=== PATIENT | female | born 1960 | race Caucasian/White ===

== ENCOUNTER → 2018-02-14 15:09 | Outpatient (CLI) | payer OTHER, SELFPAY ==
[2018-02-14 18:04] LABS: Absolute Lymphocyte Count 2.13 X10^3/ul (0.83-4.51); Basophil# 0.04 X10^3/uL; Basophil% 0.6 % (0-1); Eosinophil# 0.06 X10^3/uL; Eosinophils% 0.9 % (0-5); Hematocrit 40.8 % (37-47); Hemoglobin 13.2 g/dl (12.0-15.0); Lymphocyte # 2.13 X10^3/ul (4.0); Lymphocyte % 31.8 % (19-41); Mean Corp Hgb Conc 32.4 g/gl (32-36); Mean Corpuscular Hgb 31.6 pg (27.0-32.0); Mean Corpuscular Volume 97.6 fL (81-99); Mean Platelet Vol. 8.6 fl (6.2-12.0); Monocyte# 0.44 X10^3/uL; Monocyte% 6.6 % (0-10); Neutrophil # 4.02 X10^3/uL (2.7-7.7); Platelet Count 327 K/mm3 (150-450); RBC Distribution Width CV 14.4 % (11.6-14.6); RBC Distribution Width SD 50.5 fl (35.1-43.9); Red Blood Count 4.18 M/mm3 (4.2-5.4); White Blood Count 6.7 K/mm3 (4.4-11.0)
[2018-02-14 18:11] LABS: ALB/GLOB Ratio 1.1 RATIO (0.9-2.4); AST(SGOT) 27 U/L (15-37); Alanine Aminotransfer ALT/SGPT 30 U/L (13-56); Albumin, Serum 3.6 g/dL (3.2-5.0); Alkaline Phosphatase 78 U/L (45-117); Anion Gap 6 (5-15); BUN 12 mg/dL (7-18); BUN/Creat Ratio 24.3 RATIO (10-20); Calcium,Total 8.9 mg/dL (8.5-10.1); Chloride 103 mmol/L (98-107); Creatinine, Serum 0.49 mg/dL (0.55-1.02); EST Glomerular Filtration Rate 137 mL/min (>60); Est Glom Filt Rate - Afr Amer 165 mL/min (>60); Globulin 3.3 g/dL (2.2-4.2); Glucose 80 mg/dL (74-106); Potassium 4.3 mmol/L (3.5-5.1); Protein, Total 6.9 g/dL (6.4-8.2); Sodium Level 138 mmol/L (136-145)
[2018-02-14 18:18] LABS: POSITIVE COUNT NO; POSITIVE DIFFERENTIAL NO; POSITIVE MORPHOLOGY NO
== END ==
PROVIDERS: Family Provider Family Medicine; PCP Family Medicine; Visit Provider Internal Medicine Rheumatology
DX: L40.59 Other psoriatic arthropathy (principal); Z79.899 Other long term (current) drug therapy; L40.8 Other psoriasis; M50.30 Other cervical disc degeneration, unspecified cervical region; M47.897 Other spondylosis, lumbosacral region
CPT/HCPCS: 36415; 80053; 85025

== ENCOUNTER → 2018-05-05 11:02 | Outpatient (CLI) | payer OTHER, SELFPAY ==
--- NOTE | 2018-05-05 11:02 | DT_ITS ---
This patient was seen during an EMR downtime May 02, 2018 - May 09, 2018. This patient may have a combination of paper and electronic documentation or all paper documentation. All documentation is viewable within the e-chart portion of [facility] for each patient visit.
[2018-05-10 04:49] LABS: AST(SGOT) 21 U/L (15-37); Alanine Aminotransfer ALT/SGPT 35 U/L (13-56); Albumin, Serum 3.5 g/dL (3.2-5.0); Alkaline Phosphatase 81 U/L (45-117); BUN 13 mg/dL (7-18); Calcium,Total 9.1 mg/dL (8.5-10.1); Chloride 108 mmol/L (98-107); Creatinine, Serum 0.59 mg/dL (0.55-1.02); EST Glomerular Filtration Rate 112 mL/min (>60); Est Glom Filt Rate - Afr Amer 136 mL/min (>60); Globulin 3.5 g/dL (2.2-4.2); Glucose 66 mg/dL (74-106); Sodium Level 144 mmol/L (136-145)
[2018-05-10 04:50] LABS: Anion Gap 7 (5-15)
[2018-05-10 04:58] LABS: Basophil% 0.5 % (0-1); Eosinophils% 0.8 % (0-5); Hematocrit 39.7 % (37-47); Hemoglobin 13.4 g/dl (12.0-15.0); Lymphocyte % 29.6 % (19-41); Mean Corp Hgb Conc 33.8 g/gl (32-36); Mean Corpuscular Hgb 32.4 pg (27.0-32.0); Mean Corpuscular Volume 95.9 fL (81-99); Mean Platelet Vol. 8.5 fl (6.2-12.0); Monocyte% 4.8 % (0-10); Neutrophil % 64.1 % (47-70); POSITIVE COUNT NO; POSITIVE DIFFERENTIAL NO; POSITIVE MORPHOLOGY NO; Platelet Count 360 K/mm3 (150-450); RBC Distribution Width CV 14.1 % (11.6-14.6); RBC Distribution Width SD 48.3 fl (35.1-43.9); Red Blood Count 4.14 M/mm3 (4.2-5.4)
[2018-05-10 04:59] LABS: Absolute Lymphocyte Count 1.78 X10^3/ul (0.83-4.51); Absolute Neutrophil Count 3.9 X10^3/uL (2.0-7.7); Basophil# 0.03 X10^3/uL; Eosinophil# 0.05 X10^3/uL; Lymphocyte # 1.78 X10^3/ul (4.0); Monocyte# 0.29 X10^3/uL; Neutrophil # 3.85 X10^3/uL (2.7-7.7)
== END ==
PROVIDERS: Family Provider Family Medicine; PCP Family Medicine; Visit Provider Internal Medicine Rheumatology
DX: L40.59 Other psoriatic arthropathy (principal); Z79.899 Other long term (current) drug therapy; L40.8 Other psoriasis; M47.897 Other spondylosis, lumbosacral region; M50.30 Other cervical disc degeneration, unspecified cervical region
CPT/HCPCS: 36415; 80053; 85025

== ENCOUNTER 2018-07-30 11:07 | Emergency (ER) | payer OTHER, SELFPAY ==
[2018-07-30 11:08] VITALS: BP 123/83; PULSE 84; RESP 18; TEMP 36.6; O2SAT 98; BMI 16.6
[2018-07-30 11:34] VITALS: BP 123/88; PULSE 74; RESP 14; O2SAT 100
[2018-07-30] MEDS: HYDROcodone Bitartrate/Apap 5/325 Tablet PO (11:39)
[2018-07-30 15:38] VITALS: BP 129/77; PULSE 72; RESP 14; O2SAT 98
[2018-07-30] MEDS: Ondansetron 4 MG/2 ML Vial IV (15:40)
[2018-07-30] MEDS: Morphine 4 MG/ML Syringe IV ×2 (15:45→18:34)
[2018-07-30 16:00] LABS: Absolute Lymphocyte Count 2.02 X10^3/ul (0.83-4.51); Absolute Neutrophil Count 3.8 X10^3/uL (2.0-7.7); Basophil% 1.5 % (0-1); Eosinophil# 0.04 X10^3/uL; Eosinophils% 0.6 % (0-5); Hematocrit 39.1 % (37-47); Hemoglobin 13.1 g/dl (12.0-15.0); Lymphocyte # 2.02 X10^3/ul (4.0); Lymphocyte % 29.4 % (19-41); Mean Corp Hgb Conc 33.5 g/gl (32-36); Mean Corpuscular Hgb 32.2 pg (27.0-32.0); Mean Corpuscular Volume 96.1 fL (81-99); Mean Platelet Vol. 8.2 fl (6.2-12.0); Monocyte# 0.83 X10^3/uL; Monocyte% 12.1 % (0-10); Neutrophil # 3.84 X10^3/uL (2.7-7.7); Platelet Count 323 K/mm3 (150-450); RBC Distribution Width CV 13.9 % (11.6-14.6); RBC Distribution Width SD 45.9 fl (35.1-43.9); Red Blood Count 4.07 M/mm3 (4.2-5.4); White Blood Count 6.9 K/mm3 (4.4-11.0)
[2018-07-30 16:02] LABS: Differential Indicated SCAN CRITERIA MET; POSITIVE COUNT NO; POSITIVE DIFFERENTIAL NO; POSITIVE MORPHOLOGY YES
[2018-07-30 16:13] LABS: Anion Gap 11 (5-15); BUN 12 mg/dL (7-18); BUN/Creat Ratio 25.5 RATIO (10-20); Calcium,Total 9.3 mg/dL (8.5-10.1); Chloride 105 mmol/L (98-107); Creatinine, Serum 0.47 mg/dL (0.55-1.02); EST Glomerular Filtration Rate 145 mL/min (>60); Est Glom Filt Rate - Afr Amer 175 mL/min (>60); Estimated Creatinine Clearance 79.41 ml/min; Glucose 67 mg/dL (74-106); Potassium 3.8 mmol/L (3.5-5.1); Sodium Level 143 mmol/L (136-145)
[2018-07-30 17:08] LABS: Atypical Lymphocyte RARE %; Differential Comment SCANNED; Platelet Estimate ADEQUATE (ADEQ); Reactive Lymphocyte RARE
--- NOTE | 2018-07-30 17:16 | ED.VISSUMM ---
- ER Visit Summary Date of Service: 07/30/18 Chief Complaint: [Neck pain History of Present Illness: The patient is a 58 F [presents the emergency department complaint of neck pain that started about a week ago. Patient denies any trauma to her neck. Patient states initially she had some discomfort in her low back a couple of weeks ago and was seen by primary care physician and had x-rays of her back that just showed some arthritic changes. Patient states that she is having a hard time turning her head to the right because of pain she denies any pain radiating into the arms. She denies numbness or tingling or weakness the extremities. Patient denies any trauma to her neck. Patient does have a history of psoriatic arthritis and is on methotrexate and Otezla.] Physical Examination: [HEENT-PERRLA, EOMI. Cranial nerves II through XII grossly intact. TMs clear. Mucous membranes moist. No adenopathy. Patient has diffuse C-spine tenderness on palpation and has limited rotation to the right and extension of her cervical spine secondary to pain. Cardiovascular-regular rate and rhythm without murmur or ectopy Lungs-clear to auscultation, chest wall stable without crepitus or subcu emphysema Abdomen-normoactive bowel sounds, soft, nontender, no rebound or rigidity, no peritoneal signs. Extremities-intact ?4, normal range of motion, normal pulses, atraumatic] Test Results: [X-rays of the cervical spine obtained showed a fracture of C3. Patient was ordered a CT of the cervical spine to evaluate further and it was noted that she had pathologic fracture at C3 and lytic type lesion noted at T2. CBC with differential obtained was normal. Chemistries were unremarkable. MRI of the cervical spine and chest x-ray ordered and pending.] Emergency Department Course and Treatment: [Patient was medicated initially with one [place] followed by 4 mg of morphine 4 mg of Zofran.] Treatment Plan: [Care of patient turned over to evening physician awaiting MRI results and final disposition] Disposition: [] Impression: [C3 pathologic fracture-etiology uncertain] This note was generated with [employer] software. It may contain incorrect words, spelling, and punctuation that were not noted in review of the chart prior to signing ED Disposition - Plan for ED Patient: Chief Complaint: Other, Pain/Inj Referrals: Umberto Levine III, MD [Primary Care Provider] -
--- NOTE | 2018-07-30 18:09 | NURSING ---
CALLED PRAVEEN NEELY FOR TRANSFER
[2018-07-30 19:22] VITALS: BP 110/74; PULSE 66; RESP 17; O2SAT 94
[2018-07-30 19:56] VITALS: BP 113/74
== END 2018-07-30 19:57 | disposition home or self-care (01) ==
PROVIDERS: Emergency Medicine; Emergency Provider Emergency Medicine; Family Provider Family Medicine; PCP Family Medicine
DX: M84.48XA Pathological fracture, other site, initial encounter for fracture (principal); Z72.0 Tobacco use; L40.50 Arthropathic psoriasis, unspecified
CPT/HCPCS: 71046; 72040; 72125; 72156; 80048; 85025; 96374; 96375; 96376; 99284; A9585; A4216; J2405

== ENCOUNTER → 2018-08-04 15:47 | Outpatient (CLI) | payer OTHER, SELFPAY ==
[2018-08-04 18:06] LABS: ALB/GLOB Ratio 1.1 RATIO (0.9-2.4); AST(SGOT) 24 U/L (15-37); Alanine Aminotransfer ALT/SGPT 50 U/L (13-56); Albumin, Serum 3.6 g/dL (3.2-5.0); Alkaline Phosphatase 77 U/L (45-117); Anion Gap 9 (5-15); BUN 21 mg/dL (7-18); Calcium,Total 9.6 mg/dL (8.5-10.1); Chloride 104 mmol/L (98-107); Creatinine, Serum 0.62 mg/dL (0.55-1.02); EST Glomerular Filtration Rate 106 mL/min (>60); Est Glom Filt Rate - Afr Amer 128 mL/min (>60); Globulin 3.4 g/dL (2.2-4.2); Glucose 118 mg/dL (74-106); Potassium 3.6 mmol/L (3.5-5.1); Sodium Level 142 mmol/L (136-145)
[2018-08-04 18:42] LABS: Absolute Lymphocyte Count 1.23 X10^3/ul (0.83-4.51); Hematocrit 38.3 % (37-47); Hemoglobin 12.8 g/dl (12.0-15.0); Lymphocyte # 1.23 X10^3/ul (4.0); Lymphocyte % 10.4 % (19-41); Mean Corp Hgb Conc 33.4 g/gl (32-36); Mean Corpuscular Hgb 31.6 pg (27.0-32.0); Mean Corpuscular Volume 94.6 fL (81-99); Mean Platelet Vol. 8.6 fl (6.2-12.0); Monocyte# 0.55 X10^3/uL; Monocyte% 4.7 % (0-10); Neutrophil # 9.97 X10^3/uL (2.7-7.7); Neutrophil % 84.5 % (47-70); Platelet Count 368 K/mm3 (150-450); RBC Distribution Width CV 13.9 % (11.6-14.6); RBC Distribution Width SD 47.1 fl (35.1-43.9); Red Blood Count 4.05 M/mm3 (4.2-5.4); White Blood Count 11.8 K/mm3 (4.4-11.0)
[2018-08-04 18:43] LABS: Differential Indicated SCAN CRITERIA MET; POSITIVE COUNT NO; POSITIVE DIFFERENTIAL NO; POSITIVE MORPHOLOGY YES
[2018-08-04 19:35] LABS: Platelet Estimate ADEQUATE (ADEQ)
[2018-08-04 19:36] LABS: Anisocytosis RARE; Macrocytosis RARE
== END ==
PROVIDERS: Family Provider Family Medicine; PCP Family Medicine; Visit Provider Internal Medicine Rheumatology
DX: L40.59 Other psoriatic arthropathy (principal); Z79.899 Other long term (current) drug therapy; L40.8 Other psoriasis; M50.30 Other cervical disc degeneration, unspecified cervical region; M47.897 Other spondylosis, lumbosacral region
CPT/HCPCS: 36415; 80053; 85025

== ENCOUNTER 2018-10-14 12:38 | Day surgery (SDC) | payer OTHER, SELFPAY ==
[2018-10-14 13:01] VITALS: BP 95/70; PULSE 93; RESP 18; TEMP 37.2; O2SAT 99; BMI 17.2
--- NOTE | 2018-10-14 15:20 | PCM.IMDPSTOP ---
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
--- NOTE | 2018-10-14 15:22 | PCM.OPRPT ---
Report of Operation Date of Procedure: 10/14/18 Pre-Operative Diagnosis: lymphoma, need for portacath for chemotherapy IV access Post-Operative Diagnosis: same Surgery/Procedure Performed:: placement of permanent indwelling tunnelled catheter in the left internal jugular vein with subcutaneous port Description of Surgical Findings:: could not access left subclavian vein, normal left internal jugular venous anatomy to SVC chief talent officer: NOT,DEFINED Type of Anesthesia:: Local MAC Anesthesiologist: Dwight Johnson Specimen's removed: none Estimated Blood Loss (mL): < 10 ml Fluids Replaced: 900 ml RL Description of Procedure: After informed consent was given, the patient was brought to the operating room and placed in the supine position. She was then given IV conscious sedation for anesthesia. The patient?s upper chest and neck were then prepped with a surgical skin preparation and sterile surgical drapes were placed. After proper landmarks were ascertained, the skin at the upper left chest area was then infiltrated with local anesthetic. A needle trocar was then attempted to be inserted in the left subclavian vein. However, after several attempts the left subclavian vein could not be accessed. Thus the left internal jugular approach was attempted next. The skin and subcutaneous tissues at this site were infiltrated with local anesthetic. A 'finder needle' was used to localize the left internal jugular vein. A needle trocar was then inserted into the left internal jugular vein and there was good aspiration of venous blood. A wire was then threaded into the needle trocar and this was visualized under fluoroscopy to ensure that the wire was entering properly through the course of the left internal jugular vein. Once this was done, then the needle trocar was removed. A small skin margarita was made with an 11 blade knife at the wire entrance site. The dilator with the introducer sheath attached was then placed over the wire into the left subclavian vein via the Seldinger technique and this was visualized under fluoroscopy. The dilator and sheath were in proper position as visualized by fluoroscopy. The wire and dilator were then removed. The catheter was then threaded into the introducer sheath and was positioned with its tip at the junction of the superior vena cava and the right atrium as visualized under fluoroscopy. A subcutaneous pocket was then created just inferior to the left clavicle in the following fashion. A transverse skin incision was made after the skin and subcutaneous tissues were infiltrated with local anesthetic. Blunt dissection was then used to create a space large enough for placement of the subcutaneous port. Hemostasis was carefully controlled with electrocautery. The port was placed beneath the fascia as the patient had little sub-dermal fat. It was sutured to the fascia using vicryl suture at three sites. The catheter was then tunneled into the subcutaneous pocket. The excess catheter was transected. The catheter was then attached to the subcutaneous port using self pay specialist?s guidelines. The port was then placed in the subcutaneous pocket and the sutures were ligated. The subdermal incisional sites were reapproximated with interrupted vicryl suture. The skin was reapproximated with monocryl suture in a subcuticular fashion. Cavilon and steristrips were used for reinforcement of the skin closure and a sterile opsite dressing was applied. The patient tolerated the procedure well and brought to the Recovery Room in stable condition. Grafts/Implants Used: [employer] PowerPort Lot [id number], exp 2020-02-27 - Complications none noted - Admit VTE Documentation VTE Present on Admission: Yes VTE Mechan Device Prophylaxis: SCD's
[2018-10-14 15:28] VITALS: BP 103/66; BP 95/70; PULSE 94; RESP 16; TEMP 36.9; O2SAT 93
--- NOTE | 2018-10-14 15:29 | RAD_ITS ---
STUDY: X-RAY CHEST REASON FOR EXAM: Female, 58 years old. Port placement TECHNIQUE: Single AP portable view of the chest. COMPARISON: 07/30/2018 FINDINGS: A left IJ port has been placed, tip is in the distal SVC. No pneumothorax or mediastinal shift. There are interstitial fibrotic changes of the lungs. There is no demonstrated pleural abnormality. Normal size heart. Normal mediastinum and boom. Normal visualized pulmonary arteries. There is atherosclerotic calcification of the aortic arch with tortuosity. There are diffuse degenerative changes of the visualized thoracic spine. Normal visualized ribs, clavicles, and shoulders. There is no demonstrated abnormality of the visualized soft tissue structures of the upper abdomen. RAD/CXR for Line Placement IMPRESSION: Chronic interstitial changes, no superimposed acute pulmonary process. Left IJ central venous catheter is in place, tip is in the distal SVC. No pneumothorax or mediastinal shift. Electronically Signed: Carlos Burns MD at 16:06 EST , Service support ,
[2018-10-14 15:30] VITALS: BP 95/70; BP 98/60; PULSE 94; RESP 16; O2SAT 94
--- NOTE | 2018-10-14 15:33 | DCINST_ITS ---
Discharge Diet: No Restrictions Discharge Activity: Return to Normal Activity, May not drive while taking narcotic pain medications. Lifting Restrictions: no lifting greater than 10 pounds with left arm for 1 week Call your doctor if your incision/area has: Continuous Slow Oozing, Sudden Increased Bleeding, Foul Smelling Discharge Call your doctor if you observe: Fever of 101 or Higher Additional Dressing/Incision Instructions:: Leave dressings in place. May get wet in the shower - do not scrub - rinse well and pat dry. Do not soak - no tub baths/swimming Allergies/Adverse Reactions: Allergies No Known Allergies Allergy (Verified 10/11/18 13:03) Medications to take at Discharge Simvastatin [Zocor] 40 mg PO DAILY 07/30/18 Benzonatate [Tessalon Perle] 100 mg PO Q4H PRN PRN 10/11/18 Calcium Carbonate/Vitamin D3 [Caltrate 600 Plus D3 Tablet] 1 each PO BID 10/11/18 Cephalexin [Keflex] 500 mg PO TID 10/11/18 Dexamethasone [Decadron] 1 mg PO DAILY@0800 10/11/18 Multivitamin [Multiple Vitamins] 1 each PO DAILY 10/11/18 Naproxen Sodium [Aleve] 220 mg PO Q12H PRN PRN 10/11/18 Ondansetron [Zofran] 8 mg PO Q8H PRN PRN 10/11/18 Prednisone [Deltasone] 40 mg PO DAILY PRN 10/11/18 Primary Care Physician: Umberto Levine III, MD [Primary Care Provider] - Test Results: Test results from this visit will be discussed in further detail at your follow- up appointment, if applicable. Please Follow Up With: Irma Ochoa MD - call When: in 10-14 days, please call for date and time, thank you
[2018-10-14 15:50] VITALS: BP 102/54; BP 95/70; PULSE 86; RESP 16; O2SAT 92
[2018-10-14 15:52] VITALS: BP 101/58; BP 95/70; PULSE 88; RESP 16; TEMP 37.1; O2SAT 93
[2018-10-14 16:15] VITALS: BP 95/70
== END 2018-10-14 16:28 | disposition home or self-care (01) ==
LOC: SDC 12:38 → AC 12:40
PROVIDERS: Family Provider Family Medicine; PCP Family Medicine; Referring Provider Surgery; Visit Provider Surgery
PROC: (CPT 36561; principal; 2018-10-14 14:00)
DX: Z45.2 Encounter for adjustment and management of vascular access device (principal); C83.30 Diffuse large B-cell lymphoma, unspecified site; E78.5 Hyperlipidemia, unspecified; Z87.891 Personal history of nicotine dependence
CPT/HCPCS: 00532; 36561; 71045; 77001; J7050; J7120; C1788; J2405; J3490

== ENCOUNTER 2019-06-04 17:09 | Emergency (ER) | payer OTHER, SELFPAY ==
[2019-06-04 17:10] VITALS: BP 115/75; PULSE 88; RESP 16; TEMP 36.9; O2SAT 100; BMI 17.4
--- NOTE | 2019-06-04 17:58 | RAD_ITS ---
STUDY: X-RAY - RIGHT FOOT CLINICAL: Female, 59 years old. Dropped something on foot. TECHNIQUE: 3 view(s) of the foot. COMPARISON: None. FINDINGS: The bones are diffusely demineralized. Normal talus, calcaneus, and tarsal bones. There are degenerative changes of the mid and hindfoot. There is a comminuted fracture within the diaphysis of the fifth metatarsal. There is mild lateral displacement of the distal metatarsal. There is degenerative arthrosis of the metatarsophalangeal joint of the hallux with a hallux valgus deformity. Normal interphalangeal joint of the great toe. Normal phalanges of the great toe. Normal second through fifth metatarsophalangeal joints. Normal interphalangeal joints and phalanges of the lesser toes. The soft tissue structures are unremarkable. RAD/Foot min 3 Views IMPRESSION: Fifth metatarsal fracture. Degenerative changes. Electronically Signed: Carolyne Estrada MD at 18:45 EDT Tel , Service support ,
--- NOTE | 2019-06-04 17:59 | ED.VIS.LOWEX ---
History of Present Illness Chief Complaint: Lower Extremity Injury Detail of Chief Complaint: Right foot injury Informant: Patient Occurred: Today Mechanism/Context: - - Large drill bit fell on foot Onset: Today Timing: Continuous Quality of Pain: Aching Current Severity: Mild Maximum Severity: Mild Narrative: Patient states she was cleaning out her garage when a large drill bit used to dig wells fell off of a table and landed on her right foot. She was wearing flip-flops at the time. He has an antalgic gait. - Past Medical History (1) B-cell lymphoma Status: Acute (2) Psoriasis Status: Acute Past Medical History - Allergies and Home Meds Allergies/Adverse Reactions: Allergies No Known Allergies Allergy (Verified 06/04/19 17:10) Primary Care Physician: Victorino Mednez MD [STAFF PHYSICIAN] - 5-7 Days Prior records reviewed: Yes Past Medical History: - - Reviewed Lives: Spouse/ Significant Other Smoking Status: Current every day smoker Review of Systems General: Denies: Chills, Fever Cardiovascular: Denies: Chest pain, Palpitations, Heart racing Respiratory: Denies: Dyspnea, Cough Gastrointestinal: Denies: Abdominal pain Musculoskeletal: Reports: Arthralgias Physical Exam Vital Signs/Narrative: Vital Signs Temp Pulse Resp BP Pulse Ox 06/04/19 17:10 98.5 F 88 16 115/75 100 - Extremity Exam Right Foot: - - Patient has a contusion with ecchymosis over the midportion of the right foot. There is a superficial abrasion. She has good cap refill distally. No tenderness of the calcaneus or ankle. General: Well nourished ENT: No Trauma Neck: Nontender Cardiovascular: Regular rate, Regular rhythm Respiratory: No distress, CTA bilaterally Abdomen: Soft, Nontender Skin: - - As above Neurological: Alert, Oriented x3 Diagnostic/Tx/Re-eval Clinical Impression(s) from Imaging Studies Foot X-Ray 06/04/19 17:58 IMPRESSION: Fifth metatarsal fracture. Degenerative changes. Electronically Signed: Carolyne Estrada MD at 18:45 EDT Tel , Service support , - Medical Decision Making Test results discussed with patient and at bedside. At this time fracture is nondisplaced. She is placed in a posterior splint and given crutches. She is to remain nonweightbearing until she is seen by her orthopedist, Dr. Mendez. She will call him tomorrow. She does have oxycodone at home that she can use for pain if needed. ED Disposition - Plan for ED Patient: Disposition: Home or Assisted Living Diagnosis: Foot fracture, right Instructions: CRUSH INJURY, Foot/Toe, FRACTURE, Foot Referrals: Victorino Mendez MD [STAFF PHYSICIAN] - 5-7 Days
[2019-06-04 21:02] VITALS: BP 137/87; PULSE 89; RESP 18; O2SAT 96
== END 2019-06-04 21:02 | disposition home or self-care (01) ==
PROVIDERS: Emergency Provider Emergency Medicine; Family Provider Family Medicine; PCP Family Medicine
DX: S92.354A Nondisplaced fracture of fifth metatarsal bone, right foot, initial encounter for closed fracture (principal); W20.8XXA Other cause of strike by thrown, projected or falling object, initial encounter; Y93.9 Activity, unspecified; Y92.008 Other place in unspecified non-institutional (private) residence as the place of occurrence of the external cause; Y99.9 Unspecified external cause status; L40.9 Psoriasis, unspecified; C85.10 Unspecified B-cell lymphoma, unspecified site
CPT/HCPCS: 73630; 99283

== ENCOUNTER 2022-12-27 10:26 | Emergency (ER) | payer BC, SELFPAY ==
[2022-12-27 10:27] VITALS: BP 123/89; PULSE 73; RESP 14; TEMP 36.6; O2SAT 98; BMI 15.6
--- NOTE | 2022-12-27 10:58 | EDS_ITS ---
HPI HPI - URI History of Present Illness Chief Complaint: Ear Problem Detail of Chief Complaint: Muffled and decreased hearing left ear. Informant: patient Onset/Context/Timing Onset: Days Context: Gradual Onset Timing: Continuous Current Severity: Mild Maximum Severity: Mild Associated Symptoms Associated Symptoms: Negative for Headache, Sinus Pressure, Myalgias, Nausea, Vomiting, Diarrhea, Shortness of Breath, Chest Pain, Nonproductive cough or Productive Cough Narrative Narrative: 62-year-old female complaining of not hearing well out of her left ear. This has been going on last several days. On Wednesday she slipped and fell in her garage hit her left forehead. No LOC. She is on no blood thinners. Does not have any significant headache. Was seen in urgent care and sent to the emergency department. She denies any ear pain or fever. Prior similar symptoms: No Recent Illness/Hospitalization: No ROS ROS ED ROS Narrative Difficulty hearing out of her left ear. Review of Systems ROS Unobtainable: Denies due to encephalopathy Constitutional Constitutional ED: Denies chills, fever(s), subjective, sweats or weight loss Eyes Eyes: Denies blurry vision, change in vision or diplopia ENT ENT ED: Denies ear pain, rhinorrhea or sore throat Cardiovascular Cardiovascular: Denies chest pain or palpitations Respiratory/Chest Respiratory/Chest: Denies cough or dyspnea Gastrointestinal Gastrointestinal: Denies abdominal pain Genitourinary Genitourinary ED: Denies dysuria Musculoskeletal Musculoskeletal: Denies arthralgias or back pain Integumentary Denies abscess or Abrasions Neurologic Neurologic: Denies headache(s) Psychiatric Psychiatric: Denies anxiety or depression Endocrine Endocrinology: Denies cold intolerance Hematologic/Lymphatic Hematologic/Lymphatic: Denies easy bleeding or easy bruising Allergic/Immunologic Allergic/Immunologic ED: Denies mouth swelling or tongue swelling [facility] Medical History (Updated 12/27/22 @ 11:19 by Samaria Vee) Depression GERD (gastroesophageal reflux disease) Hyperlipemia Lymphoma Home Medications simvastatin 40 mg tablet 40 mg PO DAILY 07/30/18 [History Last Taken Unknown] calcium carbonate 600 mg-vitamin D3 20 mcg (800 unit) tablet (Caltrate with Vitamin D3) 1 ea PO BID 10/11/18 [History Last Taken Unknown] naproxen 500 mg tablet,delayed release 500 mg PO BID PRN Pain 12/27/22 [History Last Taken Unknown] omeprazole 20 mg capsule,delayed release 20 mg PO DAILY 12/27/22 [History Last Taken Unknown] sertraline 25 mg tablet 25 mg PO DAILY 12/27/22 [History Last Taken Unknown] Allergy/AdvReac Type Severity Reaction Status Date / Time No Known Allergies Allergy Verified 12/27/22 10:27 Social History Smoking Status: Current every day smoker tobacco type: cigarettes EXAM Physical Exam Narrative Exam Narrative: Well appearing 62-year-old female. Vital signs stable afebrile. H EENT exam she has small contusion on her left forehead. Pupils round reactive light his motions are intact. Posterior pharynx normal. Scalp nontender no hematoma. Right canal and TM are normal. Left canal is completely obstructed by wax. I cannot see the TM at this time. Neck nontender. No lymphadenopathy. Lungs are clear. Heart regular rhythm. Chest wall nontender. Abdomen soft nontender. Moving all 4 extremities. Neurovascular intact. Normal team coordinator strength. Normal range of motion. Normal dorsi and plantar flexion. Back nontender. Neurologic exam awake alert no focal motor deficits. Const Vital Signs: 12/27/22 10:27 Temperature 98 F Temperature Source Temporal Pulse Rate 73 Respiratory Rate 14 Blood Pressure 123/89 H Blood Pressure Mean 100 Pulse Ox 98 Oxygen Delivery Method Room Air Positive well nourished and well developed; Negative for obese, cachectic or contractures General Appearance ED: well developed and NAD; Negative for cachectic, contractures, cyanotic, diaphoretic or pallor Nutritional Appearance: Negative for cachectic or obese HEENT Reports moist mucous membranes; Denies dry mucous membranes HEENT Narrative: Bruise left forehead. No significant hematoma. normocephalic; Negative for atraumatic Mouth ED: No dry mucous membranes Mouth: No dry mucous membranes Throat: posterior oropharynx normal; Negative for tonsils abnormal or posterior oropharynx abnormal Eyes PERRL and EOMs intact bilaterally Eyes Narrative: Left TM obscured by wax in the canal. General Eye ED: Negative for pale conjunctiva or scleral icterus Neck no lymphadenopathy, supple, no meningeal signs and no JVD General: Negative for anterior neck swelling or lymphadenopathy Resp normal respiratory effort and clear to auscultation bilaterally Effort and Inspection: Negative for retractions Auscultation: Negative for rales, rhonchi or wheezes Cardio S1 normal heart sound, S2 normal heart sound and no murmurs Rate: regular rate; Negative for bradycardia or tachycardic Rhythm: regular rhythm; Negative for abnormal rhythm GI non-tender, non-distended and no masses Inspection: Negative for abdominal distention Auscultation: normoactive bowel sounds Palpation: soft; Negative for tender or guarding Back/Spine no CVA tenderness and normal ROM General Back: Negative for CVA tenderness Cervical Spine: Negative for cervical spine tenderness Thoracic Spine / Upper Back: Negative for thoracic spinal tenderness Lumbar Spine / Lower Back: Negative for lumbar spinal tenderness Sacrum: Negative for tenderness Extremity normal to inspection and full ROM General Extremety ED: Negative for cyanosis, tenderness or other findings General Extremity: Negative for cyanosis or other findings Neuro oriented x3, CN's II-XII intact bilaterally and no sensory deficits noted Sensorium / Orientation: alert, oriented to person, oriented to place and oriented to time; Negative for orientation impaired, lethargic, stuporous or other Motor Exam: strength 5/5 throughout Psych mental status grossly normal Appearance: Negative for other Attitude: No agitated Mood & Affect: Negative for depressed, anxious or tearful Skin General Skin Exam: Negative for jaundice or pallor Lesions: no lesions Rashes: no rashes Trauma: Negative for abrasion or laceration MDM MDM MDM Narrative Medical decision making narrative: 62-year-old female fall has a minor closed head injury. She is actually here because of decreased hearing in her left ear caused by cerumen impaction on the left. We will place Debrox in the left ear canal. Irrigate out as much wax as we can. Nurses used Debrox eardrops irrigated the patient's left ear and got about half the wax out. You can now visualize the left TM is unremarkable. Patient's hearing has improved. She is doing well at 11:55 AM. She will be discharged home. Discharge Plan Triage Chief Complaint: Ear Problem ED Provider: Xavier Garcia Dx/Rx/DC Orders Clinical Impression: Fall, Closed head injury, Impacted cerumen of left ear Instructions: Impacted Earwax, ED Head Injury (Adult) Prescriptions: No Action simvastatin 40 MG tablet 40 mg PO DAILY Label Comments: Take 1 tablet by mouth daily at bedtime. calcium carbonate-vitamin D3 [Caltrate with Vitamin D3] 1 EACH tablet 1 ea PO BID naproxen 500 mg tablet,delayed release (DR/EC) 500 mg PO BID PRN (Reason: Pain) Label Comments: take 1 tablet by mouth twice a day with meals for pain sertraline 25 mg tablet 25 mg PO DAILY omeprazole 20 mg capsule,delayed release(DR/EC) 20 mg PO DAILY Primary Care Provider: Richard Hernandez Activity Restrictions/Additional Instructions: You can use either Cerumenex or Debrox eardrops either 1 you can get [id number] for earwax as needed. The forehead bruise should progressively get better. Tylenol for any pain. Disposition Disposition: Home, Self Care
[2022-12-27] MEDS: Carbamide Peroxide 15 ML Bottle 5 DRP OTIC (11:12)
== END 2022-12-27 12:02 | disposition home or self-care (01) ==
PROVIDERS: Emergency Provider Emergency Medicine; PCP Physician Assistant; Visit Provider Emergency Medicine
DX: S09.90XA Unspecified injury of head, initial encounter (principal); H61.22 Impacted cerumen, left ear; F17.210 Nicotine dependence, cigarettes, uncomplicated; E78.5 Hyperlipidemia, unspecified; K21.9 Gastro-esophageal reflux disease without esophagitis; F32.A Depression, unspecified
CPT/HCPCS: 69209; 99283

== ENCOUNTER 2023-06-04 10:38 | Emergency (ER) | payer BC, SELFPAY ==
[2023-06-04 10:39] VITALS: BP 113/81; PULSE 86; RESP 14; TEMP 37; O2SAT 98; BMI 15.3
--- NOTE | 2023-06-04 11:38 | EDS_ITS ---
HPI <DION Perez - Last Filed: 06/04/23 13:42> History of Present Illness Chief Complaint: Abn Labs Narrative Narrative: 63-year-old female started chemo last week for lung cancer with Dr. Robb. At last week's session they had to give her IV magnesium and potassium. She had blood work again today before chemo and her potassium was 2.7. The nurse there said that the common side effect of this chemotherapy agent. She has not had any vomiting, diarrhea, or side effects from the chemo. She was sent here for electrolyte replacement. PFS <DION Perez - Last Filed: 06/04/23 13:42> [facility] Medical History (Updated 06/12/23 @ 00:05 by Kendrick Carvajal) Depression GERD (gastroesophageal reflux disease) Hyperlipemia Lymphoma Home Medications simvastatin 40 mg tablet 40 mg PO DAILY 07/30/18 [History Last Taken Unknown] calcium carbonate 600 mg-vitamin D3 20 mcg (800 unit) tablet (Caltrate with Vitamin D3) 1 ea PO BID 10/11/18 [History Last Taken Unknown] naproxen 500 mg tablet,delayed release 500 mg PO BID PRN Pain 12/27/22 [History Last Taken Unknown] omeprazole 20 mg capsule,delayed release 20 mg PO DAILY 12/27/22 [History Last Taken Unknown] sertraline 25 mg tablet 25 mg PO DAILY 12/27/22 [History Last Taken Unknown] potassium chloride 20 mEq tablet,extended release 20 meq PO DAILY 7 days #7 tabs 06/04/23 [Rx Last Taken Unknown] Allergy/AdvReac Type Severity Reaction Status Date / Time No Known Allergies Allergy Verified 06/04/23 10:39 Social History Smoking Status: Current every day smoker tobacco type: cigarettes ROS <DION Perez - Last Filed: 06/04/23 13:42> ROS ED ROS Narrative Constitutional: Negative for fever, chills, malaise. CVS: Negative for chest pain. Respiratory: Negative for shortness of breath. GI: Negative for abdominal pain, nausea, vomiting, diarrhea. EXAM <DION Perez - Last Filed: 06/04/23 13:42> Physical Exam Narrative Exam Narrative: CONST: Patient sitting in no acute distress. EYES: Normal inspection. NECK: Normal inspection. RESP: No respiratory distress, CTAB. CVS: Regular rate and rhythm, no murmur, no gallop. SKIN: Color normal, no rash, warm, dry, intact. EXTREMITIES: Normal appearance, no pedal edema. NEURO: Oriented x4. PSYCH: Normal affect. Const Vital Signs: 06/04/23 10:39 06/04/23 10:55 Temperature 98.6 F Temperature Source Temporal Pulse Rate 86 Respiratory Rate 14 Respiratory Effort Normal Respiratory Pattern Normal Blood Pressure 113/81 H Blood Pressure Mean 91 Pulse Ox 98 Oxygen Delivery Method Room Air <Dr. Grazyna Aaron DO - Last Filed: 08/29/23 08:32> Physical Exam Const Vital Signs: 06/04/23 10:39 06/04/23 10:55 Temperature 98.6 F Temperature Source Temporal Pulse Rate 86 Respiratory Rate 14 Respiratory Effort Normal Respiratory Pattern Normal Blood Pressure 113/81 H Blood Pressure Mean 91 Pulse Ox 98 Oxygen Delivery Method Room Air MDM <DION Perez - Last Filed: 06/04/23 13:42> [facility] Narrative Medical decision making narrative: Patient sent here for asymtomatic hypokalemia. Apparently this can be a side effect of her chemotherapy agent. Potassium is 2.8, magnesium WNL at 1.9. She was given a dose of p.o. potassium 40 mEq and prescribed 20 mEq once daily x1 week. I let the on-call oncologist know and they will follow-up for repeat blood work. Patient was discharged in stable condition. Consults: Oncology I have personally performed a face to face assessment of the patient and have reviewed the SHARDA Note. I performed a substantive portion of the visit including all aspects of the following. My fleming findings include: History is [patient presents to the emergency department with complaint of low potassium. Patient apparently was getting chemotherapy today and they teddy some basic labs and noted that her potassium was 2.7. Patient also had low potassium during last time she got chemo a week ago however they gave her p.o. potassium before she got her chemo. Patient states that also her magnesium was low at the time. Chemo is known to lower potassium apparently. Patient was told that she may need to be on a monitor while she did receive potassium so they sent her to the ER. Patient denies any chest pain or palpitations or paresthesias. Patient essentially has no complaints otherwise.] Exam is [HEENT-normocephalic atraumatic, negative for [place] sign Cardiovascular-heart is regular rate and rhythm without murmur Lung exam-clear to auscultation without tachypnea Abdomen-normal bowel sounds and nontender without rebound or rigidity or. No signs. Extremities-intact x4 without carpopedal spasm ] Medical Decision Making [patient will be given a dose of potassium. We will check her potassium and her magnesium.] Patient was given p.o. potassium. Clinically she looks well. She will be started on daily p.o. potassium and advised to follow-up with her primary care physician within the next week to have a repeat potassium. Other additions or changes: [None] Lab Data Labs: Laboratory Results - last 24 hr 06/04/23 12:25 Sodium 138 Potassium 2.8 L Chloride 102 Carbon Dioxide 33.0 H Anion Gap 3 L BUN 7 Creatinine 0.40 L Estim Creat Clear Calc 78.40 Est GFR (MDRD) Af Amer 207 Est GFR (MDRD) Non-Af 171 BUN/Creatinine Ratio 17.5 Glucose 94 Calcium 8.5 Magnesium 1.9 <Dr. Grazyna Aaron, DO - Last Filed: 08/29/23 08:32> [facility] MDM Narrative Medical decision making narrative: I have personally performed a face to face assessment of the patient and have reviewed the SHARDA Note. I performed a substantive portion of the visit including all aspects of the following. My fleming findings include: History is [patient presents to the emergency department with complaint of low potassium. Patient apparently was getting chemotherapy today and they teddy some basic labs and noted that her potassium was 2.7. Patient also had low potassium during last time she got chemo a week ago however they gave her p.o. potassium before she got her chemo. Patient states that also her magnesium was low at the time. Chemo is known to lower potassium apparently. Patient was told that she may need to be on a monitor while she did receive potassium so they sent her to the ER. Patient denies any chest pain or palpitations or paresthesias. Patient essentially has no complaints otherwise.] Exam is [HEENT-normocephalic atraumatic, negative for [place] sign Cardiovascular-heart is regular rate and rhythm without murmur Lung exam-clear to auscultation without tachypnea Abdomen-normal bowel sounds and nontender without rebound or rigidity or. No signs. Extremities-intact x4 without carpopedal spasm ] Medical Decision Making [patient will be given a dose of potassium. We will check her potassium and her magnesium.] Patient was given p.o. potassium. Clinically she looks well. She will be started on daily p.o. potassium and advised to follow-up with her primary care physician within the next week to have a repeat potassium. Other additions or changes: [None] Lab Data Labs: Laboratory Results - last 24 hr 06/04/23 12:25 Sodium 138 Potassium 2.8 L Chloride 102 Carbon Dioxide 33.0 H Anion Gap 3 L BUN 7 Creatinine 0.40 L Estim Creat Clear Calc 78.40 Est GFR (MDRD) Af Amer 207 Est GFR (MDRD) Non-Af 171 BUN/Creatinine Ratio 17.5 Glucose 94 Calcium 8.5 Magnesium 1.9 Discharge Plan Triage Chief Complaint: Abn Labs ED Midlevel Provider: Magali Jamil ED Provider: Grazyna Aaron Dx/Rx/DC Orders Clinical Impression: Acute hypokalemia Instructions: ED Hypokalemia Prescriptions: New potassium chloride 20 mEq tablet extended release 20 meq PO DAILY 7 Days Qty: 7 0RF No Action simvastatin 40 MG tablet 40 mg PO DAILY Patient Comments: Take 1 tablet by mouth daily at bedtime. calcium carbonate-vitamin D3 [Caltrate with Vitamin D3] 1 EACH tablet 1 ea PO BID naproxen 500 mg tablet,delayed release (DR/EC) 500 mg PO BID PRN (Reason: Pain) Patient Comments: take 1 tablet by mouth twice a day with meals for pain sertraline 25 mg tablet 25 mg PO DAILY omeprazole 20 mg capsule,delayed release(DR/EC) 20 mg PO DAILY Primary Care Provider: Richard Hernandez Referrals: Richard Hernandez PA [Primary Care Provider] - Activity Restrictions/Additional Instructions: Follow up with your PCP or oncologist to have labs rechecked Disposition Disposition: Home, Self Care Discharge Date/Time: 06/04/23 13:50
[2023-06-04] MEDS: Potassium Chloride Oral Tablet 20 MEQ 40 MEQ PO (11:45)
--- NOTE | 2023-06-04 11:50 | ED.RN ---
PT ARRIVES WITH IV IN RT WRIST FROM CHEMO THIS MORNING. STATES NURSES LEFT IT IN SO SHE DIDNT HAVE TO BE STUCK AGAIN.
[2023-06-04 12:59] LABS: Anion Gap 3 (5-15); BUN 7 mg/dL (7-18); BUN/Creat Ratio 17.5 RATIO (10-20); Calcium,Total 8.5 mg/dL (8.5-10.1); Chloride 102 mmol/L (98-107); EST Glomerular Filtration Rate 171 mL/min (>60); Est Glom Filt Rate - Afr Amer 207 mL/min (>60); Glucose 94 mg/dL (74-106); Magnesium 1.9 mg/dL (1.6-2.6); Potassium 2.8 mmol/L (3.5-5.1); Sodium Level 138 mmol/L (136-145)
[2023-06-04 13:47] VITALS: BP 107/86; PULSE 88; RESP 16; O2SAT 95
== END 2023-06-04 13:50 | disposition home or self-care (01) ==
PROVIDERS: Physician Assistant; Emergency Provider Emergency Medicine; PCP Physician Assistant; Visit Provider Emergency Medicine
DX: E87.6 Hypokalemia (principal); F17.210 Nicotine dependence, cigarettes, uncomplicated; Z92.21 Personal history of antineoplastic chemotherapy; E78.5 Hyperlipidemia, unspecified; Z85.118 Personal history of other malignant neoplasm of bronchus and lung; Z79.899 Other long term (current) drug therapy; K21.9 Gastro-esophageal reflux disease without esophagitis; F32.A Depression, unspecified
CPT/HCPCS: 80048; 83735; 99283

== ENCOUNTER 2024-05-07 09:24 | Inpatient (IN) | payer BC, SELFPAY ==
[2024-05-07] VITALS (28 sets, daily range): BP systolic 110–173; BP diastolic 88–122; PULSE 109–135; RESP 16–37; TEMP 36–37.2; O2SAT 89–100; BMI 14.3
--- NOTE | 2024-05-07 09:40 | EX.ED.DYSGE1 ---
HPI History of Present Illness Chief Complaint: Unresponsive Informant: spouse/S.O. Onset/Context/Timing Onset: Today Context: Sudden Onset Timing: Continuous Quality: Unresponsive Location: Generalized Narrative Narrative: Patient presents unresponsive that was noticed this morning. Family reported that the patient was acting appropriate yesterday when she went to bed. Family woke up this morning and found the patient unresponsive. Patient is nonverbal. Patient does not take any anticoagulants. does report that the patient had a cough recently but has been unable to produce any sputum. states that he saw the patient in a chair last evening around 2100. Patient states he went to bed at that time. Patient states when he woke up today he found the patient unresponsive. He called EMS at that time. [facility] Medical History Lymphoma Depression GERD (gastroesophageal reflux disease) Hyperlipemia Home Medications ?Medication ?Instructions ?Recorded ?Last Taken ?Type simvastatin 40 mg tablet 40 mg PO DAILY 07/30/18 Unknown History calcium carbonate 600 mg-vitamin 1 ea PO BID 10/11/18 Unknown History D3 20 mcg (800 unit) tablet (Caltrate with Vitamin D3) naproxen 500 mg tablet,delayed 500 mg PO BID PRN Pain 12/27/22 Unknown History release omeprazole 20 mg capsule,delayed 20 mg PO DAILY 12/27/22 Unknown History release duloxetine 30 mg capsule,delayed 30 mg PO DAILY 05/07/24 Unknown History release gabapentin 300 mg capsule 300 mg PO TID 05/07/24 Unknown History magnesium chloride 71.5 mg 143 mg PO DAILY 05/07/24 Unknown History (magnesium chloride) tablet,delayed release (Slow-Mag) methocarbamol 500 mg tablet 750 mg PO Q6H PRN PRN pain 05/07/24 Unknown History nifedipine 30 mg tablet,extended 30 mg PO DAILY 05/07/24 Unknown History release 24 hr thiamine HCl (vitamin B1) 100 mg 100 mg PO DAILY 05/07/24 Unknown History tablet tiotropium bromide 2.5 2 puff inhalation DAILY 05/07/24 Unknown History mcg/actuation mist for inhalation (Spiriva Respimat) vitamin B complex (Vitamins B 1 cap PO DAILY 05/07/24 Unknown History Complex capsule) Allergy/AdvReac Type Severity Reaction Status Date / Time No Known Allergies Allergy Verified 06/04/23 10:39 Social History Smoking Status: Current every day smoker tobacco type: cigarettes ROS ROS ED Review of Systems ROS Unobtainable: due to mental condition and due to mental status EXAM Physical Exam Const Vital Signs: 05/07/24 09:25 05/07/24 09:28 05/07/24 10:02 Temperature 97.8 F 96.8 F L Temperature Source Temporal Temporal Pulse Rate 128 H 127 H 135 H Respiratory Rate 20 H 19 H 27 H Respiratory Effort Respiratory Pattern Blood Pressure 147/122 H 152/112 H Blood Pressure Mean 130 125 Pulse Ox 89 92 100 Oxygen Delivery Method Room Air Room Air Nasal Cannula Oxygen Flow Rate (L/min) 6 05/07/24 10:17 05/07/24 10:38 05/07/24 11:08 Temperature 96.8 F L 97 F L 97.3 F L Temperature Source Temporal Temporal Temporal Pulse Rate 128 H 121 H 118 H Respiratory Rate 37 H 27 H 26 H Respiratory Effort Respiratory Pattern Blood Pressure 153/104 H 141/92 H 133/104 H Blood Pressure Mean 120 108 113 Pulse Ox 100 100 100 Oxygen Delivery Method Nasal Cannula Nasal Cannula Nasal Cannula Oxygen Flow Rate (L/min) 6 6 6 05/07/24 11:38 05/07/24 11:39 05/07/24 12:00 Temperature 97.4 F L Temperature Source Temporal Pulse Rate 115 H 117 H Respiratory Rate 26 H 32 H Respiratory Effort Short of Breath Labored Respiratory Pattern Hyperpnea Blood Pressure 110/91 H 152/109 H Blood Pressure Mean 97 123 Pulse Ox 100 97 Oxygen Delivery Method Nasal Cannula Room Air Oxygen Flow Rate (L/min) 6 05/07/24 12:06 05/07/24 12:11 05/07/24 12:30 Temperature 97.1 F L 97.1 F L 98.9 F Temperature Source Temporal Axillary Pulse Rate 116 H 112 H 113 H Respiratory Rate 24 H 19 H 16 Respiratory Effort Respiratory Pattern Blood Pressure 159/102 H 159/102 H 161/107 H Blood Pressure Mean 121 121 125 Pulse Ox 99 100 98 Oxygen Delivery Method Nasal Cannula Room Air Oxygen Flow Rate (L/min) 6 05/07/24 13:11 05/07/24 13:18 05/07/24 14:00 Temperature 98.4 F 98.4 F 98 F Temperature Source Axillary Axillary Axillary Pulse Rate 113 H 113 H 109 H Respiratory Rate 32 H 32 H 30 H Respiratory Effort Respiratory Pattern Blood Pressure 166/121 H 166/121 H 173/109 H Blood Pressure Mean 136 136 130 Pulse Ox 98 98 98 Oxygen Delivery Method Nasal Cannula Nasal Cannula Nasal Cannula Oxygen Flow Rate (L/min) 6 6 6 05/07/24 14:30 Temperature Temperature Source Pulse Rate 122 H Respiratory Rate 32 H Respiratory Effort Respiratory Pattern Blood Pressure 157/103 H Blood Pressure Mean 121 Pulse Ox 100 Oxygen Delivery Method Nasal Cannula Oxygen Flow Rate (L/min) 6 Positive cachectic General Appearance ED: cachectic Nutritional Appearance: cachectic HEENT Reports moist mucous membranes Eyes PERRL Neck supple and no JVD Resp normal respiratory effort and clear to auscultation bilaterally Cardio regular rhythm Rate: tachycardic GI non-distended Palpation: soft Extremity normal to inspection Neuro Sensorium / Orientation: lethargic Motor Exam: general weakness Sepsis Attestation Sepsis Alert: Yes Sepsis Attestation: Agree w/Sepsis Date exam was performed: 05/07/24 Time exam was performed: 09:45 Possible Source of Sepsis: Pulmonary and Genitourinary Sepsis Organ Dysfunction Criteria Present: Lactic Acid > 2 mmol/L and New/Unexplained change in mental status Fluid Resuscitation Fluid Resuscitation ordered: 30 ml/kg fluid bolus ordered Sepsis Note Date exam was performed: 05/07/24 Time exam was performed: 11:00 Sepsis Attestation: Sepsis re-evaluation was performed MDM MDM MDM Narrative Medical decision making narrative: Differential diagnosis includes intracranial bleeding, stroke, electrolyte abnormality, medication overdose, cardiac dysrhythmia, cardiac ischemia, sepsis. CT scan of the brain will be obtained to assess for intracranial bleeding and stroke. EKG will be obtained to assess for cardiac dysrhythmia and cardiac ischemia. CBC will be obtained to assess for leukocytosis and anemia. Comprehensive metabolic profile will be obtained to assess for hepatic function, renal function, and electrolyte abnormality. PT with INR and PTT will be obtained to assess for coagulopathy. Lactate will be obtained to assess for sepsis. Urinalysis will be obtained to assess for urinary tract infection. Chest x-ray will be obtained to assess for pneumonia. Lab Data Attestation: I reviewed the patient's lab results. Lab results narrative: CBC was reviewed and showed an elevated leukocytosis of 25.5. There were left hip noted. PT with INR and PTT were reviewed. Pro time was 15.3 and INR is 1.2. PTT was slightly elevated at 37.8. Comprehensive metabolic profile was reviewed. Sodium was 131 and potassium was slightly low at 2.8. Chloride was slightly low at 94. Anion gap was elevated at 16. BUN was elevated at 34. Creatinine was normal at 0.99. Total bilirubin was normal at 1.0. AST was slightly elevated at 119 ALT was normal at 35. Alkaline phosphatase was slightly elevated at 139. Initial high-sensitivity troponin was slightly elevated at 88. This is most likely from stress. Serum lactate was reviewed and was elevated at 5.2. Urinalysis was normal. There is no evidence of urinary tract infection. Occult blood was 250 with 10-25 red blood cells noted. Arterial blood gas was remarkable and showed a pH of 7.50, pCO2 of 25.8, pO2 of 100, bicarb of 19.9, and oxygen saturation of 98% on 6 L nasal cannula. Because of the mixed metabolic acidosis and respiratory alkalosis, salicylate level was obtained and was normal Labs: Laboratory Results - last 24 hr 05/07/24 05/07/24 05/07/24 09:45 10:40 12:34 WBC 25.5 H RBC 4.40 Hgb 14.5 Hct 42.4 MCV 96.4 MCH 33.0 H MCHC 34.2 RDW Std Deviation 46.4 H RDW Coeff of Timothy 13.0 Plt Count 135 L MPV 10.3 Immature Gran % (Auto) 2.500 H Neut % (Auto) 91.0 H Lymph % (Auto) 1.6 L [place] % (Auto) 4.8 Eos % (Auto) 0.0 Baso % (Auto) 0.1 Absolute Neuts (auto) 23.2 H Absolute Lymphs (auto) 0.40 L Nucleated RBC % 0 Toxic Granulation 2+ PT Cancelled 15.3 H INR Cancelled 1.2 APTT Cancelled 37.8 H Sodium 131 L Potassium 2.8 L Chloride 94 L Carbon Dioxide 21.0 Anion Gap 16 H BUN 34 H Creatinine 0.99 Estim Creat Clear Calc 29.57 Est GFR (MDRD) Af Amer 73 Est GFR (MDRD) Non-Af 60 BUN/Creatinine Ratio 34.4 H Glucose 146 H Lactic Acid 5.2 H* Calcium 9.5 Total Bilirubin 1.00 AST 119 H ALT 35 Alkaline Phosphatase 139 H Troponin I High Sens 88 H Total Protein 6.1 L Albumin 2.1 L Globulin 4.0 Albumin/Globulin Ratio 0.5 L Urine Color Yellow Urine Clarity Clear Urine pH 6.0 Ur Specific [place] 1.020 Urine Protein 100 H Urine Glucose (UA) 250 H Urine Ketones 15 H Urine Occult Blood 250 H Urine Nitrite Negative Urine Bilirubin 1 H Urine Urobilinogen 4 H Ur Leukocyte Esterase 25 H Urine RBC 10-25 SEEN Urine WBC 0 SEEN Ur Squamous Epith Cells 0 SEEN Urine Bacteria 0 SEEN Hyaline Casts 0-5 SEEN Urine Mucus 0 SEEN Salicylates 7.5 ABG Data ABG results: ABG 05/07/24 10:12 Specimen Type ART Sample Site L Radial pH 7.50 H Bicarbonate Actual 19.9 L Total CO2 21 Base Excess -3 L O2 Saturation 98 O2 % 6.0 ABG pCO2 25.8 L ABG pO2 101 H O2 Delivery Device Cannula Vent Mode Not entered Radiography Diagnostic Testing: Clinical Impression(s) from Imaging Studies Chest X-Ray 05/07/24 09:42 IMPRESSION: Left perihilar and left lower lung infiltrates could be due to pneumonia. Electronically Signed: Cayden Small MD at 10:23 EDT , Brain CT 05/07/24 09:48 IMPRESSION: 1. No acute intracranial process. 2. Small old lacunar infarct in the left basal ganglia. 3. Chronic involutional changes of the brain Electronically Signed: Cayden Small MD at 10:16 EDT , Chest CTA 05/07/24 12:22 IMPRESSION: 1. No evidence of pulmonary embolism or aortic dissection. 2. Moderate pericardial effusion. 3. Patchy infiltrates bilaterally worse on the left lower lobe concerning for pneumonia. 4. Probable underlying chronic fibrotic changes and bronchiectatic changes. Electronically Signed: Cayden Small MD at 12:56 EDT , CT scan of the brain was obtained. There is no acute intracranial abnormality. This was interpreted by the radiologist and was also independently reviewed by myself. Portable chest x-ray was obtained. There is 1 view. There is left lower lung infiltrates and left perihilar infiltrates. Bony thorax is normal. There is no pneumothorax noted. Radiologist also interpreted the x-ray and agrees. Because of the respiratory alkalosis, CTA of the chest was obtained. There is no evidence of pulmonary embolism or aortic dissection. There is a moderate pericardial effusion. There are patchy infiltrates worse in the left lower lobe concerning for pneumonia. This was interpreted by the radiologist was also independently reviewed by myself. EKG Initial EKG: Attestation: I personally reviewed and interpreted this EKG as follows: Interpretation: Sinus Tachycardia (138) and Non-Specific ST Changes Comments: EKG was obtained. On my independent interpretation, it shows sinus tachycardia with a rate of 138. SC interval was normal at 120 ms. QRS and was normal at 76 ms. QTc interval was prolonged at 551 ms. [place] was normal at -7. There are nonspecific ST-T wave changes. There are frequent PVCs noted. Prior EKG tracings: not available for review Prior: No Prior Management Discussion w/another healthcare provider: Hospitalist Treatment and Re-Evaluation :: Patient was started on Rocephin and Zithromax. Patient was given IV fluids. Patient was given a dose of IV potassium. Case was discussed with the hospitalist, Dr. Solano. He recommended obtaining CTA of the chest. After the negative CT of the chest, case was discussed with the hospitalist, Dr. Crawford. He will admit the patient to ICU. Family understands and is agreeable with the plan. All questions were answered. Critical Care Time Critical Care Time: Yes Critical care time (excluding procedures): 30-74 minutes (36), Including time spent:, Discussing w/Patient &/or Family/Medical Parasitologist, Discussing w/Consultants, Arranging Admission or Transfer and Performing Direct Patient Care at Bedside Discharge Plan Dx/Rx/DC Orders Clinical Impression: Pneumonia, Severe sepsis, Altered mental status, Hypokalemia Disposition Disposition: [facility]
--- NOTE | 2024-05-07 09:42 | RAD_ITS ---
INDICATION: Unresponsive EXAMINATION/TECHNIQUE: X-RAY - XR Chest 1 View COMPARISON: Prior study dated: 07/30/2018. FINDINGS: LINES/DEVICES: None. LUNGS: Hazy left perihilar and lower lung infiltrates concerning for pneumonia. The patient is markedly rotated. No definite pleural effusions. MEDIASTINUM AND CARDIOVASCULAR STRUCTURES: Cardiac silhouette not enlarged. Central airways and mediastinal contour are unremarkable. BONES AND SOFT TISSUES: Degenerative changes of the right shoulder. RAD/Chest 1 View (Portable) IMPRESSION: Left perihilar and left lower lung infiltrates could be due to pneumonia. Electronically Signed: Cayden Small MD at 10:23 EDT ,
--- NOTE | 2024-05-07 09:42 | EKG12_ITS ---
Test Reason : UNRESP Blood Pressure : / mmHG Vent. Rate : 138 BPM Atrial Rate : 138 BPM P-R Int : 120 ms QRS Dur : 076 ms QT Int : 364 ms P-R-T Axes : 078 -07 061 degrees QTc Int : 551 ms Critical Test Result: Long QTc Sinus tachycardia with occasional Premature ventricular complexes and Fusion complexes Low voltage QRS Inferior infarct , age undetermined Abnormal ECG Confirmed by Louis Feliz ([id number]), map editor JORDIN HOLCOMB ([id number]) on 05/08/2024 11:22:08 AM Referred By: MICHELLE Confirmed By:Louis Feliz
--- NOTE | 2024-05-07 09:48 | CT_ITS ---
INDICATION: Unresponsive EXAMINATION: CT BRAIN - CT Head or Brain W/O Contrast Injection TECHNIQUE: Multiple axial images were obtained of the head without intravenous contrast. The protocol utilizes one or more of the following dose reduction techniques: automated exposure control, adjustment of mA and/or kV according to patient size,and/or use of iterative reconstruction technique. IV Contrast dosage and agent: None. RADIATION DOSAGE (If Supplied By Facility): CTDIvol = ( 44.99 ) mGy, DLP = ( 762.36 ) mGycm COMPARISON: No relevant prior comparison study available FINDINGS: BRAIN PARENCHYMA: No intra- or extra-axial hemorrhage. No evidence of acute infarct. No intracranial mass or mass effect. There is preservation of the [place]/white matter interface. Small old lacunar infarct in the left basal ganglia. Periventricular deep white matter changes likely due to chronic microvascular disease. Posterior fossa structures are unremarkable. Atherosclerotic calcifications of the cavernous internal carotid arteries. CSF SPACES: Appropriate for age. No hydrocephalus. Basal cisterns are patent. CALVARIUM, SKULL BASE, PARANASAL SINUSES AND MASTOID AIR CELLS: Clear. No discrete lytic or blastic abnormalities. ORBITS: Both globes, extraocular muscles, optic nerves and retrobulbar fat appear unremarkable. CT/Brain/Head without Contrast IMPRESSION: 1. No acute intracranial process. 2. Small old lacunar infarct in the left basal ganglia. 3. Chronic involutional changes of the brain Electronically Signed: Cayden Small MD at 10:16 EDT ,
[2024-05-07 09:50] LABS: Bacteria 0 SEEN /hpf (None Seen); Mucous, Urine 0 SEEN /hpf (<or=2+); Squamous Epithelial Cells - UA 0 SEEN /hpf (5-10); White Blood Cells 0 SEEN /hpf (0-5)
[2024-05-07 09:53] LABS: Absolute Neutrophil Count 23.2 X10^3/uL (2.0-7.7); Basophil# 0.02 X10^3/uL; Basophil% 0.1 % (0-1); Hematocrit 42.4 % (37-47); Hemoglobin 14.5 g/dL (12.0-15.0); Lymphocyte % 1.6 % (19-41); Mean Corp Hgb Conc 34.2 g/dL (32-36); Mean Corpuscular Volume 96.4 fL (81-99); Mean Platelet Vol. 10.3 fl (6.2-12.0); Monocyte# 1.22 X10^3/uL; Monocyte% 4.8 % (0-10); NRBC Flagged by Analyzer 0 % (0-5); Neutrophil # 23.24 X10^3/uL (2.7-7.7); POSITIVE DIFFERENTIAL YES; POSITIVE MORPHOLOGY YES; Platelet Count 135 K/mm3 (150-450); RBC Distribution Width SD 46.4 fl (35.1-43.9); White Blood Count 25.5 K/mm3 (4.4-11.0)
[2024-05-07 10:02] LABS: Color, Urine Yellow (Yellow); Glucose, Dipstick 250 mg/dl (Normal); Ketone-Dipstick 15 mg/dl (Negative); Leukocyte Esterase-Dipstick 25 /ul (Negative); Nitrite-Dipstick Negative (Negative); Occult Blood-Urine 250 /ul (Negative); Protein-Dipstick 100 mg/dl (Negative); Urine Bilirubin Dipstick 1 mg/dL (Negative); Urine Clarity Clear (Clear); Urine Urobilinogen 4 mg/dl (Normal)
[2024-05-07] MEDS: 0.9% Normal Saline (1000mL) 1,000 ML 1000 ML IV ×2 (10:07→11:02)
[2024-05-07 10:14] LABS: Hyaline Cast 0-5 SEEN /lpf (0-5); Red Blood Cells-Urine 10-25 SEEN /hpf (0-5)
[2024-05-07 10:16] LABS: Base Excess -3 mmol/L (-2 to +2); Bicarbonate 19.9 mmol/L (22-26); Blood Gas Specimen Type ART; Mode Not entered; O2 Delivery Device Cannula; PO2 101 mmHG (75-100); SITE L Radial; SO2 98 % (95-99); Total Carbon Dioxide 21 mmol/L; pCO2 25.8 mmHg (35-45)
[2024-05-07 10:17] LABS: Differential Indicated SCAN CRITERIA MET; Toxic Granulation 2+
[2024-05-07 10:26] LABS: Lactic Acid 5.2 mmol/L (0.4-1.9)
[2024-05-07 10:46] LABS: ALB/GLOB Ratio 0.5 RATIO (0.9-2.4); AST(SGOT) 119 U/L (15-37); Alanine Aminotransfer ALT/SGPT 35 U/L (13-56); Albumin, Serum 2.1 g/dL (3.2-5.0); Alkaline Phosphatase 139 U/L (45-117); Anion Gap 16 (5-15); BUN 34 mg/dL (7-18); BUN/Creat Ratio 34.4 RATIO (10-20); Calcium,Total 9.5 mg/dL (8.5-10.1); Chloride 94 mmol/L (98-107); Creatinine, Serum 0.99 mg/dL (0.55-1.02); EST Glomerular Filtration Rate 60 mL/min (>60); Est Glom Filt Rate - Afr Amer 73 mL/min (>60); Estimated Creatinine Clearance 29.57 ml/min; Glucose 146 mg/dL (74-106); Potassium 2.8 mmol/L (3.5-5.1); Protein, Total 6.1 g/dL (6.4-8.2); Sodium Level 131 mmol/L (136-145); Troponin-I HS 88 pg/mL (3.0-54.0)
[2024-05-07 10:55] LABS: International Normalized Ratio 1.2; Prothrombin Time (Protime)PT. 15.3 SECONDS (11.7-14.9)
[2024-05-07 10:56] LABS: Partial Thromboplast Time 37.8 Seconds (24.1-36.2)
[2024-05-07] MEDS: Ceftriaxone 2 GM in 0.9% Normal Saline (50mL MB+) 50 ML IV (11:20)
[2024-05-07] MEDS: Azithromycin 500 MG in Dextrose 5%-Water (250mL Bag) 250 ML 250 MG IV (11:22)
--- NOTE | 2024-05-07 12:22 | CT_ITS ---
STUDY: CTA CHEST REASON FOR EXAM: Female, 63 years old. Dyspnea RADIATION DOSAGE (If Supplied By Facility): CTDIvol = ( 5.37 ) mGy, DLP = ( 103.29 ) mGycm TECHNIQUE: The examination was performed with the intravenous administration of IV 50mL Isovue-370. Post-processing of the angiographic images was performed, with multiplanar reformation and 3D reconstruction. The protocol utilizes one or more of the following dose reduction techniques: automated exposure control, adjustment of mA and/or kV according to patient size,and/or use of iterative reconstruction technique. COMPARISON: Prior study dated: 01/23/2014 FINDINGS: Normal enhancement of the main pulmonary artery and right and left pulmonary arteries. Normal enhancement of the bilateral peripheral pulmonary arteries. There is no demonstrated pulmonary embolism. There is atherosclerotic calcification of the aortic arch with mild tortuosity. There is no demonstrated aortic dissection. Normal heart size. Moderate pericardial effusion. There are calcifications of the coronary arteries. Normal mediastinum. Normal hilar regions. Normal visualized trachea and bronchi. Prominent interstitial markings bilaterally. Left lower lobe consolidation concerning for pneumonia. Patchy opacities/infiltrates in the right lower lobe, lingula and left upper lobe with underlying cystic changes could be due to pulmonary fibrosis. Mild central bronchiectatic changes worse on the right side. There are no pleural effusions. Normal chest wall structures. Degenerative changes of the spine. Mild depression of the inferior endplate of T9. No demonstrated acute changes in the visualized upper abdomen. CT/CTA Chest W/WO Contrast IMPRESSION: 1. No evidence of pulmonary embolism or aortic dissection. 2. Moderate pericardial effusion. 3. Patchy infiltrates bilaterally worse on the left lower lobe concerning for pneumonia. 4. Probable underlying chronic fibrotic changes and bronchiectatic changes. Electronically Signed: Cayden Small MD at 12:56 EDT ,
[2024-05-07] MEDS: Potassium Chloride 10mEq/100mL 10 MEQ/100 ML IV.SOLN. 100 MEQ IV BOLUS ×2 (12:36→13:58)
[2024-05-07 13:10] LABS: Salicylate 7.5 mg/dL (2.8-20.0)
[2024-05-07 13:48] LABS: Reflex Lactate? Y
--- NOTE | 2024-05-07 14:59 | PCM.HP.STD ---
HPI - General General Date of Admission: 05/07/24 Date of Service: 05/07/24 HPI Narrative ROBERTA SCHMIDT, is a 63 F with prior history of B-cell lymphoma [resolved], lung cancer s/p left lower lobe resection, psoriasis who presents to the ED with concerns regarding altered mental status. Per her , she was having ongoing back pain for the last few days, was not taking any medications for the same. This morning she was hard to be awakened from her sleep, and was less responsive. Due to this EMS was called and she was brought to the ED. At the time of presentation in the ED the patient was 147/122, positive to 127, respiratory rate 19, she was satting 92% on room air, she had lactic acidosis, CT head was normal, WBC 25.5, PT was 15.3 sodium was 131, potassium was 2.8, urine showed 10-25 RBCs but no WBCs, pH was 7.5, bicarb of 19, pCO2 of 21. Chest x-ray showed left perihilar and left lower lobe infiltrates like could be due to pneumonia brain CT was normal but showed small old axillary infarcts CTA showed patchy infiltrates bilaterally worse on left lower lobe concerning for pneumonia and moderate pericardial effusion. [facility] Medical History Lymphoma Depression GERD (gastroesophageal reflux disease) Hyperlipemia Home Medications ?Medication ?Instructions ?Recorded ?Last Taken ?Type simvastatin 40 mg tablet 40 mg PO DAILY 07/30/18 Unknown History calcium carbonate 600 mg-vitamin 1 ea PO BID 10/11/18 Unknown History D3 20 mcg (800 unit) tablet (Caltrate with Vitamin D3) naproxen 500 mg tablet,delayed 500 mg PO BID PRN Pain 12/27/22 Unknown History release omeprazole 20 mg capsule,delayed 20 mg PO DAILY 12/27/22 Unknown History release duloxetine 30 mg capsule,delayed 30 mg PO DAILY 05/07/24 Unknown History release gabapentin 300 mg capsule 300 mg PO TID 05/07/24 Unknown History magnesium chloride 71.5 mg 143 mg PO DAILY 05/07/24 Unknown History (magnesium chloride) tablet,delayed release (Slow-Mag) methocarbamol 500 mg tablet 750 mg PO Q6H PRN PRN pain 05/07/24 Unknown History nifedipine 30 mg tablet,extended 30 mg PO DAILY 05/07/24 Unknown History release 24 hr thiamine HCl (vitamin B1) 100 mg 100 mg PO DAILY 05/07/24 Unknown History tablet tiotropium bromide 2.5 2 puff inhalation DAILY 05/07/24 Unknown History mcg/actuation mist for inhalation (Spiriva Respimat) vitamin B complex (Vitamins B 1 cap PO DAILY 05/07/24 Unknown History Complex capsule) Allergy/AdvReac Type Severity Reaction Status Date / Time No Known Allergies Allergy Verified 06/04/23 10:39 Family History no significant family his no significant family history Surgical History unable to obtain unable to obtain Social History Smoking Status: Current every day smoker tobacco type: cigarettes ROS Review of Systems ROS Unobtainable: due to encephalopathy Vital Signs Vital Signs Vital Signs: 05/07/24 09:25 05/07/24 09:28 05/07/24 10:02 Temperature 97.8 F 96.8 F L Temperature Source Temporal Temporal Pulse Rate 128 H 127 H 135 H Respiratory Rate 20 H 19 H 27 H Respiratory Effort Respiratory Pattern Blood Pressure 147/122 H 152/112 H Blood Pressure Mean 130 125 Pulse Ox 89 92 100 Oxygen Delivery Method Room Air Room Air Nasal Cannula Oxygen Flow Rate (L/min) 6 05/07/24 10:17 05/07/24 10:38 05/07/24 11:08 Temperature 96.8 F L 97 F L 97.3 F L Temperature Source Temporal Temporal Temporal Pulse Rate 128 H 121 H 118 H Respiratory Rate 37 H 27 H 26 H Respiratory Effort Respiratory Pattern Blood Pressure 153/104 H 141/92 H 133/104 H Blood Pressure Mean 120 108 113 Pulse Ox 100 100 100 Oxygen Delivery Method Nasal Cannula Nasal Cannula Nasal Cannula Oxygen Flow Rate (L/min) 6 6 6 05/07/24 11:38 05/07/24 11:39 05/07/24 12:00 Temperature 97.4 F L Temperature Source Temporal Pulse Rate 115 H 117 H Respiratory Rate 26 H 32 H Respiratory Effort Short of Breath Labored Respiratory Pattern Hyperpnea Blood Pressure 110/91 H 152/109 H Blood Pressure Mean 97 123 Pulse Ox 100 97 Oxygen Delivery Method Nasal Cannula Room Air Oxygen Flow Rate (L/min) 6 05/07/24 12:06 05/07/24 12:11 05/07/24 12:30 Temperature 97.1 F L 97.1 F L 98.9 F Temperature Source Temporal Axillary Pulse Rate 116 H 112 H 113 H Respiratory Rate 24 H 19 H 16 Respiratory Effort Respiratory Pattern Blood Pressure 159/102 H 159/102 H 161/107 H Blood Pressure Mean 121 121 125 Pulse Ox 99 100 98 Oxygen Delivery Method Nasal Cannula Room Air Oxygen Flow Rate (L/min) 6 05/07/24 13:11 05/07/24 13:18 05/07/24 14:00 Temperature 98.4 F 98.4 F 98 F Temperature Source Axillary Axillary Axillary Pulse Rate 113 H 113 H 109 H Respiratory Rate 32 H 32 H 30 H Respiratory Effort Respiratory Pattern Blood Pressure 166/121 H 166/121 H 173/109 H Blood Pressure Mean 136 136 130 Pulse Ox 98 98 98 Oxygen Delivery Method Nasal Cannula Nasal Cannula Nasal Cannula Oxygen Flow Rate (L/min) 6 6 6 05/07/24 14:30 Temperature Temperature Source Pulse Rate 122 H Respiratory Rate 32 H Respiratory Effort Respiratory Pattern Blood Pressure 157/103 H Blood Pressure Mean 121 Pulse Ox 100 Oxygen Delivery Method Nasal Cannula Oxygen Flow Rate (L/min) 6 Weight Weight: 70 lb 15.822 oz Body Mass Index (BMI) 14.3 Physical Exam Const Negative for alert, oriented x3, no apparent distress, average body habitus, healthy appearing or well nourished Constitutional Narrative: Drowsy but arousable, AO x 0 HEENT normocephalic Eyes PERRL Resp Resp Narrative: Bilateral crepitations, left-sided decreased breath sounds Cardio regular rhythm; Negative for regular rate Cardio Narrative: Tachycardia GI soft to palpation Extremity normal to inspection Neuro No oriented x3 Neuro Narrative: AO x 0, A2 B1 and 4 protecting airway well Results Lab / Micro Data 05/07/24 09:45 05/07/24 09:45 Labs: Laboratory Results - last 24 hr 05/07/24 09:45: WBC 25.5 H, RBC 4.40, Hgb 14.5, Hct 42.4, MCV 96.4, MCH 33.0 H, MCHC 34.2, RDW Std Deviation 46.4 H, RDW Coeff of Timothy 13.0, Plt Count 135 L, MPV 10.3, Immature Gran % (Auto) 2.500 H, Neut % (Auto) 91.0 H, Lymph % (Auto) 1.6 L, [place] % (Auto) 4.8, Eos % (Auto) 0.0, Baso % (Auto) 0.1, Absolute Neuts (auto) 23.2 H, Absolute Lymphs (auto) 0.40 L, Nucleated RBC % 0, Toxic Granulation 2+, PT Cancelled, INR Cancelled, APTT Cancelled, Sodium 131 L, Potassium 2.8 L, Chloride 94 L, Carbon Dioxide 21.0, Anion Gap 16 H, BUN 34 H, Creatinine 0.99, Estim Creat Clear Calc 29.57, Est GFR (MDRD) Af Amer 73, Est GFR (MDRD) Non-Af 60, BUN/Creatinine Ratio 34.4 H, Glucose 146 H, Lactic Acid 5.2 H*, Calcium 9.5, Total Bilirubin 1.00, AST 119 H, ALT 35, Alkaline Phosphatase 139 H, Troponin I High Sens 88 H, Total Protein 6.1 L, Albumin 2.1 L, Globulin 4.0, Albumin/Globulin Ratio 0.5 L, Urine Color Yellow, Urine Clarity Clear, Urine pH 6.0, Ur Specific [place] 1.020, Urine Protein 100 H, Urine Glucose (UA) 250 H, Urine Ketones 15 H, Urine Occult Blood 250 H, Urine Nitrite Negative, Urine Bilirubin 1 H, Urine Urobilinogen 4 H, Ur Leukocyte Esterase 25 H, Urine RBC 10-25 SEEN, Urine WBC 0 SEEN, Ur Squamous Epith Cells 0 SEEN, Urine Bacteria 0 SEEN, Hyaline Casts 0-5 SEEN, Urine Mucus 0 SEEN 05/07/24 10:40: PT 15.3 H, INR 1.2, APTT 37.8 H 05/07/24 12:34: Salicylates 7.5 ABG Data ABG results: ABG 05/07/24 10:12 Specimen Type ART Sample Site L Radial pH 7.50 H Bicarbonate Actual 19.9 L Total CO2 21 Base Excess -3 L O2 Saturation 98 O2 % 6.0 ABG pCO2 25.8 L ABG pO2 101 H O2 Delivery Device Cannula Vent Mode Not entered Imaging Radiology Impression Chest X-Ray 05/07/24 09:42 IMPRESSION: Left perihilar and left lower lung infiltrates could be due to pneumonia. Electronically Signed: Cayden Small MD at 10:23 EDT , Brain CT 05/07/24 09:48 IMPRESSION: 1. No acute intracranial process. 2. Small old lacunar infarct in the left basal ganglia. 3. Chronic involutional changes of the brain Electronically Signed: Cayden Small MD at 10:16 EDT , Chest CTA 05/07/24 12:22 IMPRESSION: 1. No evidence of pulmonary embolism or aortic dissection. 2. Moderate pericardial effusion. 3. Patchy infiltrates bilaterally worse on the left lower lobe concerning for pneumonia. 4. Probable underlying chronic fibrotic changes and bronchiectatic changes. Electronically Signed: Cayden Small MD at 12:56 EDT , Assessment & Plan Assessment/Plan (1) Altered mental status: PLAN: Plan 63-year-old female with history of B-cell lymphoma, lung cancer, now not on any chemotherapy, hypertension and dyslipidemia presents to the ED with altered mental status. Her laboratory features and imaging studies are concerning for infection likely community-acquired pneumonia. Also [place] ABG from [place] suggestive of possible dehydration given the alkalosis. She is protecting her airway well so we will start her on IV fluids and therapy as per sepsis protocol. Will trend her lactate. 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 #Acute on chronic respiratory failure: Likely secondary to community-acquired pneumonia also presented metabolic alkalosis -Possibly because of dehydration and sepsis -Maintaining saturation on 2 L nasal cannula at this time -Respiratory therapy -Bronchopulmonary hygiene -Tiotropium bromide inhalation daily acute #Hypokalemia: Not on any medications that can lead to hypokalemia -KCl infusion and twice daily potassium monitoring #Pericardial effusion: -Echocardiogram #Depression: Duloxetine 30 mg delayed release continue gabapentin 300 mg 3 times daily #Hypertension: Nifedipine 30 mg extended release #GERD omeprazole 20 mg daily #Dyslipidemia simvastatin 40 mg daily #Supplementation: Continue thiamine 100 mg p.o., will withhold for now changed to IV if not able to swallow by tomorrow #DVT prophylaxis: Enoxaparin subcu daily
[2024-05-07 15:10] LABS: Lactic Acid 6.4 mmol/L (0.4-1.9)
[2024-05-07] MEDS: 0.9% Normal Saline (1000mL) 1,000 ML 100 ML IV (16:04)
[2024-05-07 16:25] LABS: Allen Test Positive; Base Excess -6 mmol/L (-2 to +2); Bicarbonate 17.9 mmol/L (22-26); Blood Gas Specimen Type ART; Mode Not entered; O2 Delivery Device Cannula; PO2 64 mmHG (75-100); SITE L Brach; SO2 94 % (95-99); Total Carbon Dioxide 19 mmol/L; pCO2 25.4 mmHg (35-45); pH 7.46 (7.35-7.45)
[2024-05-07] MEDS: Ipratropium/Albuterol Sulfate 3 ML AMPUL.NEB INHALATION ×2 (16:32→22:49)
[2024-05-07 18:11] LABS: Lactic Acid 3.7 mmol/L (0.4-1.9)
--- NOTE | 2024-05-07 18:20 | CON.PCM.CC_ITS ---
HPI Consult Data Date of Consult: 05/07/24 HPI Narrative Reason for Consultation: altered MS HPI Narrative: ROBERTA SCHMIDT, is a 63 F who presents acutely altered MS and tachypnea. Her states she was in her USOH other than troubling back pains for the previous several weeks (apparently a long-standing problem) when he discovered her to be unarousable/ obtunded this AM. EMS was summoned she was evaluated in ED and found to have evidence for LL pneumonia on imaging. She was admitted to ICU for further care. He denies any recent travel or other exposures of note. [facility] Medical History Lymphoma Depression GERD (gastroesophageal reflux disease) Hyperlipemia Home Medications ?Medication ?Instructions ?Recorded ?Last Taken ?Type simvastatin 40 mg tablet 40 mg PO DAILY 07/30/18 Unknown History calcium carbonate 600 mg-vitamin 1 ea PO BID 10/11/18 Unknown History D3 20 mcg (800 unit) tablet (Caltrate with Vitamin D3) naproxen 500 mg tablet,delayed 500 mg PO BID PRN Pain 12/27/22 Unknown History release omeprazole 20 mg capsule,delayed 20 mg PO DAILY 12/27/22 Unknown History release duloxetine 30 mg capsule,delayed 30 mg PO DAILY 05/07/24 Unknown History release gabapentin 300 mg capsule 300 mg PO TID 05/07/24 Unknown History magnesium chloride 71.5 mg 143 mg PO DAILY 05/07/24 Unknown History (magnesium chloride) tablet,delayed release (Slow-Mag) methocarbamol 500 mg tablet 750 mg PO Q6H PRN PRN pain 05/07/24 Unknown History nifedipine 30 mg tablet,extended 30 mg PO DAILY 05/07/24 Unknown History release 24 hr thiamine HCl (vitamin B1) 100 mg 100 mg PO DAILY 05/07/24 Unknown History tablet tiotropium bromide 2.5 2 puff inhalation DAILY 05/07/24 Unknown History mcg/actuation mist for inhalation (Spiriva Respimat) vitamin B complex (Vitamins B 1 cap PO DAILY 05/07/24 Unknown History Complex capsule) Allergy/AdvReac Type Severity Reaction Status Date / Time No Known Allergies Allergy Verified 06/04/23 10:39 Family History no significant family his Surgical History unable to obtain Social History Smoking Status: Current every day smoker tobacco type: cigarettes ROS Review of Systems ROS Unobtainable: due to encephalopathy Objective Data Objective Data Vital Signs: Vital Signs Last response 3 Temperature 36.9 C 05/07/24 18:00 Temperature Source Temporal 05/07/24 18:00 Pulse Rate 124 H 05/07/24 18:00 Respiratory Rate 33 H 05/07/24 18:00 Respiratory Effort Labored, Accessory Muscle Use 05/07/24 16:00 Respiratory Depth Shallow 05/07/24 16:00 Respiratory Pattern Tachypnea 05/07/24 16:00 Blood Pressure 149/88 H 05/07/24 18:00 Blood Pressure Mean 108 05/07/24 18:00 Blood Pressure Source Monitor 05/07/24 18:00 Blood Pressure Position Semi-Fowlers 05/07/24 18:00 Blood Pressure Location Left Arm 05/07/24 18:00 Pulse Ox 98 05/07/24 18:00 Oxygen Delivery Method Nasal Cannula 05/07/24 18:00 Oxygen Flow Rate (L/min) 2 05/07/24 18:00 I&O: I&O Last 24 Hours 3 05/06/24 05/07/24 05/07/24 23:59 11:59 23:59 Intake Total 0 / 2505 2505 / 2505 Balance 0 / 2505 2505 / 2505 I&O: Total Stay 3 05/07/24 09:24 thru 05/07/24 15:54 Intake Total 2505 Balance 2505 Current Meds Ordered / Administered: Current meds ordered / Administered 3 Generic Name Dose Route Start Last Admin Trade Name Freq PRN Reason Stop Dose Admin Albuterol/Ipratropium 3 ml 05/07/24 16:30 05/07/24 16:32 Ipratropium/Albuterol Sulfate 3 Ml Ampul.Neb INHALATION 3 ml Q6HWA.RT YADIEL Administration Atorvastatin Calcium 20 mg 05/07/24 22:00 Atorvastatin Calcium 20 Mg Tablet PO QHS YADIEL Dextrose 0 gm 05/07/24 15:21 Dextrose 50%-Water 25 Gm/50 Ml Disp.Syrin IV X1 PRN HYPOGLYCEMIA Protocol Duloxetine HCl 30 mg 05/08/24 10:00 Duloxetine Hcl 30 Mg Capsule PO DAILY YADIEL Enoxaparin Sodium 30 mg 05/08/24 10:00 Enoxaparin 30 Mg/0.3 Ml Syringe SC DAILY YADIEL Gabapentin 300 mg 05/07/24 17:00 05/07/24 16:35 Gabapentin 300 Mg Capsule PO Not Given TIDCM YADIEL Glucagon 1 mg 05/07/24 15:21 Glucagon 1 Mg/Ml Syringe IM X1 PRN HYPOGLYCEMIA Sodium Chloride 1,000 mls @ 100 mls/hr 05/07/24 15:21 05/07/24 16:04 IV 100 mls/hr .Q10H YADIEL Administration Ceftriaxone Sodium 2 gm/ 50 mls @ 100 mls/hr 05/08/24 10:00 Sodium Chloride IV Q24 YADIEL Azithromycin 500 mg/ Dextrose 255 mls @ 250 mls/hr 05/08/24 10:00 IV Q24 YADIEL Nifedipine 30 mg 05/08/24 10:00 Nifedipine 30 Mg Tablet PO DAILY [facility] Protocol Pantoprazole Sodium 20 mg 05/08/24 10:00 Pantoprazole Sodium 20 Mg Tablet PO DAILY [facility] Sodium Chloride 10 - 40 ml 05/07/24 15:26 0.9% Saline Lock 10 Ml Syringe IV UD PRN SALINE FLUSH Thiamine HCl 100 mg 05/08/24 08:00 Thiamine Hydrochloride 100 Mg Tablet PO DAILYCM [facility] Physical Exam Const Constitutional Narrative: unarousable to voice, tachypneic General Appearance: well kempt Orientation / Consciousness: obtunded Exam Limitations: altered mental status HEENT normocephalic Face and Sinus: normal facial exam Eyes PERRL Sclera: sclera normal Neck full ROM Chest inspection of chest normal Chest: symmetrical chest wall rise Resp Effort and Inspection: tachypneic and respiratory distress Cardio Rate: tachycardic GI normal to inspection, nondistended, normoactive bowel sounds Lab / Micro Data Attestation: I reviewed the patient's lab results. 05/07/24 09:45 05/07/24 09:45 Labs: Laboratory Results - last 24 hr 05/07/24 09:45: WBC 25.5 H, RBC 4.40, Hgb 14.5, Hct 42.4, MCV 96.4, MCH 33.0 H, MCHC 34.2, RDW Std Deviation 46.4 H, RDW Coeff of Timothy 13.0, Plt Count 135 L, MPV 10.3, Immature Gran % (Auto) 2.500 H, Neut % (Auto) 91.0 H, Lymph % (Auto) 1.6 L , [place] % (Auto) 4.8, Eos % (Auto) 0.0, Baso % (Auto) 0.1, Absolute Neuts (auto) 23.2 H, Absolute Lymphs (auto) 0.40 L, Nucleated RBC % 0, Toxic Granulation 2+, PT Cancelled, INR Cancelled, APTT Cancelled, Sodium 131 L, Potassium 2.8 L, C hloride 94 L, Carbon Dioxide 21.0, Anion Gap 16 H, BUN 34 H, Creatinine 0.99, Estim Creat Clear Calc 29.57, Est GFR (MDRD) Af Amer 73, Est GFR (MDRD) Non-Af 60, BUN/Creatinine Ratio 34.4 H, Glucose 146 H, Lactic Acid 5.2 H*, Calcium 9.5, Total Bilirubin 1.00, AST 119 H, ALT 35, Alkaline Phosphatase 139 H, Troponin I High Sens 88 H, Total Protein 6.1 L, Albumin 2.1 L, Globulin 4.0, A lbumin/Globulin Ratio 0.5 L, Urine Color Yellow, Urine Clarity Clear, Urine pH 6.0, Ur Specific [place] 1.020, Urine Protein 100 H, Urine Glucose (UA) 250 H, U rine Ketones 15 H, Urine Occult Blood 250 H, Urine Nitrite Negative, Urine Bilirubin 1 H, Urine Urobilinogen 4 H, Ur Leukocyte Esterase 25 H, Urine RBC 10- 25 SEEN, Urine WBC 0 SEEN, Ur Squamous Epith Cells 0 SEEN, Urine Bacteria 0 SEEN, Hyaline Casts 0-5 SEEN, Urine Mucus 0 SEEN 05/07/24 10:40: PT 15.3 H, INR 1.2, APTT 37.8 H 05/07/24 12:34: Salicylates 7.5 05/07/24 14:15: Lactic Acid 6.4 H* 05/07/24 17:25: Lactic Acid 3.7 H* Micro: Microbiology 05/07/24 16:16 Mucosa - Nasopharyngeal SARS-CoV-2, Influenza & RSV (PCR) - Final ABG Data ABG results: ABG 05/07/24 05/07/24 10:12 16:21 Specimen Type ART ART Sample Site L Radial L Brach pH 7.50 H 7.46 H Bicarbonate Actual 19.9 L 17.9 L Total CO2 21 19 Base Excess -3 L -6 L O2 Saturation 98 94 L O2 % 6.0 2.0 ABG pCO2 25.8 L 25.4 L ABG pO2 101 H 64 L Yaniv Test Positive O2 Delivery Device Cannula Cannula Vent Mode Not entered Not entered Imaging Radiology Impression Chest X-Ray 05/07/24 09:42 IMPRESSION: Left perihilar and left lower lung infiltrates could be due to pneumonia. Electronically Signed: Cayden Small MD at 10:23 EDT Reading Location ID and State: [facility] [place] Tel , Service support , Brain CT 05/07/24 09:48 IMPRESSION: 1. No acute intracranial process. 2. Small old lacunar infarct in the left basal ganglia. 3. Chronic involutional changes of the brain Electronically Signed: Cayden Small MD at 10:16 EDT Reading Location ID and State: [facility] [place] Tel , Service support , Chest CTA 05/07/24 12:22 IMPRESSION: 1. No evidence of pulmonary embolism or aortic dissection. 2. Moderate pericardial effusion. 3. Patchy infiltrates bilaterally worse on the left lower lobe concerning for pneumonia. 4. Probable underlying chronic fibrotic changes and bronchiectatic changes. Electronically Signed: Cayden Small MD at 12:56 EDT Reading Location ID and State: [facility] [place] Tel , Service support , Assessment and Plan . Assessment and plan: #altered MS - attributable to sepsis #severe sepsis due to CAP - LA elevated but decreasing - has received IVF bolus per protocol - sepsis bundle is appropriate to continue #acute respiratory insufficiency - given underlying obstructive lung disease, altered MS and previous lung resection she is at risk for respiratory failure- discussed with family - will monitor status closely - repeat ABG in a few hours #underlying COPD in a smoker - bronchodilators - IV steroids would be appropriate #previous history of LLLobectomy for CA - no current concern for recurrent disease Critical Care Time: 60 minutes The entirety of this encounter was done via Telemedicine
--- NOTE | 2024-05-07 18:25 | ECHOCS_ITS ---
Reason For Study: Altered Mental Status Procedure This was a 2D Doppler, Color Flow transthoracic echocardiogram. Technically difficult study due to patients inability to hold still and agitation. Contrast injection was performed. Exam performed portable in ICU/CCU. Left Ventricle Normal LV size. Left ventricular systolic function is normal. The estimated ejection fraction is 60 %. Stage 1 diastolic dysfunction. No regional wall motion abnormalities noted. Right Ventricle Normal RV size. Normal systolic function. Atria Normal left atrium. Normal right atrium. Mitral Valve Normal mitral valve. Tricuspid Valve Normal tricuspid valve. Mild to moderate (1-2+) tricuspid valve insufficiency. Pulmonary artery systolic pressure is 45 mmHg. Aortic Valve Trisinus/trileaflet aortic valve. Pulmonic Valve Normal pulmonic valve. Great Vessels Normal aortic root. The pulmonary artery is normal size. Inferior vena cava collapse with respiration. Pericardium/Pleural Small pericardial effusion. There are no echocardiographic indications of cardiac tamponade. Medication Diluted definity 2ml given slow IV push to enhance endocardial definition. MMode/2D Measurements & Calculations LVIDd: 3.9 cm IVSd: 0.65 cm Ao root diam: 3.1 cm LVIDs: 3.2 cm LVPWd: 0.63 cm LA dimension: 2.5 cm RVDd: 2.2 cm FS: 17.5 % LAV(MOD-bp): 29.9 ml LA A4 area: 14.1 cm2 RA A4 area: 10.3 cm2 LAV(MOD-bp) Indexed: 25.1 ml/m2 LAV(MOD-sp2): 22.8 ml LAV(MOD-sp4): 30.4 ml TAPSE: 1.1 cm Time Measurements MV dec time: 0.14 sec Doppler Measurements & Calculations MV E max vu: 74.0 cm/sec Lat Peak E' Vu: 7.7 cm/sec Med Peak E' Vu: 6.8 cm/sec MV A max vu: 89.7 cm/sec E/E' lat: 9.6 E/E' med: 10.9 MV E/A: 0.82 MV V2 max: 97.6 cm/sec MV P1/2t max vu: 79.2 cm/sec Ao V2 max: 114.9 cm/sec MV max P.8 mmHg MV P1/2t: 49.8 msec Ao max P.3 mmHg MV V2 mean: 52.7 cm/sec MV dec slope: 465.9 cm/sec2 MV mean P.3 mmHg MVA(P1/2t): 4.4 cm2 MV V2 VTI: 17.6 cm LV V1 max: 102.5 cm/sec PA V2 max: 84.9 cm/sec TR max vu: 324.0 cm/sec LV V1 max P.2 mmHg TR max P.0 mmHg ECHO/Echo Complete W/ Contrast Interpretation Summary Normal LV size. Left ventricular systolic function is normal. The estimated ejection fraction is 60 %. Stage 1 diastolic dysfunction. Pulmonary artery systolic pressure is 45 mmHg. Small pericardial effusion. Ordering Physician: Natalie Crawford Performed By: Guzman Martin RCS
[2024-05-07 21:36] LABS: Reflex Lactate? Y
[2024-05-07 23:23] LABS: Base Excess -6 mmol/L (-2 to +2); Bicarbonate 18.5 mmol/L (22-26); Blood Gas Specimen Type ART; Mode Not entered; O2 Delivery Device Cannula; PO2 72 mmHG (75-100); SITE R Brach; SO2 95 % (95-99); Total Carbon Dioxide 19 mmol/L; pCO2 27.3 mmHg (35-45); pH 7.44 (7.35-7.45)
[2024-05-08] VITALS (27 sets, daily range): BP systolic 118–156; BP diastolic 79–108; PULSE 104–124; RESP 18–36; TEMP 36.3–37; O2SAT 92–99; BMI 14.6
[2024-05-08] MEDS: 0.9% Normal Saline (1000mL) 1,000 ML 100 ML IV ×3 (01:23→23:30)
[2024-05-08 04:57] LABS: Absolute Lymphocyte Count 0.35 X10^3/uL (0.83-4.51); Absolute Neutrophil Count 23.8 X10^3/uL (2.0-7.7); Basophil# 0.01 X10^3/uL; Hemoglobin 10.8 g/dL (12.0-15.0); Lymphocyte # 0.35 X10^3/ul (0.83-4.51); Lymphocyte % 1.4 % (19-41); Mean Corp Hgb Conc 34.8 g/dL (32-36); Mean Corpuscular Hgb 33.5 pg (27.0-32.0); Mean Corpuscular Volume 96.3 fL (81-99); Monocyte# 0.75 X10^3/uL; NRBC Flagged by Analyzer 0 % (0-5); Neutrophil # 23.76 X10^3/uL (2.7-7.7); Neutrophil % 93.5 % (47-70); POSITIVE COUNT YES; POSITIVE DIFFERENTIAL YES; POSITIVE MORPHOLOGY YES; RBC Distribution Width CV 13.1 % (11.6-14.6); RBC Distribution Width SD 46.1 fl (35.1-43.9); Red Blood Count 3.22 M/mm3 (4.2-5.4)
[2024-05-08 05:22] LABS: Differential Indicated SCAN CRITERIA MET; Platelet Count 41 K/mm3 (150-450)
[2024-05-08 05:40] LABS: Lactic Acid 2.2 mmol/L (0.4-1.9)
[2024-05-08 05:44] LABS: International Normalized Ratio 1.5; Prothrombin Time (Protime)PT. 17.6 SECONDS (11.7-14.9)
--- NOTE | 2024-05-08 06:15 | PCM.PN.INT ---
Assessment & Plan Assessment/Plan (1) Altered mental status: (2) Pneumonia: (3) B-cell lymphoma: PLAN: Plan RECOMMENDATIONS: 1. Continue antimicrobial therapy. 2. Hold sedating medications. 3. Obtain neurology consultation. 4. Continue bronchodilator therapy. 5. Send type and screen. Transfuse if hemoglobin drops below 7 g/dL. 6. Continue PPI therapy. IMPRESSIONS: 1. Sepsis The patient presented with sepsis due to pneumococcal pneumonia with secondary bacteremia with acute sepsis related organ dysfunction as evidenced by altered mental status, thrombocytopenia and lactic acidemia. The patient was placed on appropriate antimicrobial therapy. She remains hemodynamically stable at the present time. Lactic acidemia has improved. 2. Altered mental status Unclear etiology. The patient currently moves all extremities but is nonverbal. Will plan to obtain neurology consultation this morning. In addition, will check TSH and ammonia. Lastly, full urine toxicology screen will be obtained. Continue to hold all sedating medications for now. 3. Anemia/thrombocytopenia Possibly related to presenting sepsis. The patient did receive fluid resuscitation. Will send type and screen today. Continue to monitor blood counts for now. Transfuse if hemoglobin drops below 7 g/dL. Remainder of supportive care as noted above. 4. History of COPD/history of left lower lobectomy for malignancy Continue scheduled bronchodilator therapy for now. 5. History of B-cell lymphoma/psoriasis/neuropathy/depression/anxiety/GERD/hyperlipidemia Complicates care, management, recovery and prognosis. Continue supportive measures as noted above. This note was generated with [email or web address] dictation software. It may contain incorrect words, spelling, and punctuation that were not noted in checking the note before signing. Subjective Subjective The patient was seen and examined at the bedside this morning. Events from the last 24 hours have been reviewed. The patient is currently afebrile, hemodynamically stable and maintaining appropriate oxygen saturations on 2 L/min via nasal cannula. Although the patient spontaneously moves all of her extremities, and will open her eyes to verbal stimulation, she is completely mute and will not currently engage in any form of conversation. White count remains elevated at 25,000. Hemoglobin is down to 10.8 g/dL. Platelet count is low at 41,000. INR is within normal limits at 1.5. Objective Data Objective Data The patient's most recent lab work, culture data and imaging studies have all been personally reviewed. COVID, influenza and RSV PCR's were negative. Blood cultures were positive for Streptococcus pneumonia. Vital Signs: Vital Signs Temp Pulse Resp BP Pulse Ox O2 Del Method O2 Flow Rate 98.3 F 112 H 23 H 146/90 H 98 Room Air 2 05/08/24 00:00 05/08/24 05:00 05/08/24 05:00 05/08/24 05:00 05/08/24 05:00 05/08/24 05:00 05/08/24 04:00 Oxygen Flow Rate (L/min) 2 Oxygen Delivery Method Room Air Weight: 72 lb 4.986 oz Body Mass Index (BMI) 14.6 Intake & Output: Intake and Output for Last 24 Hours 05/06/24 05/07/24 05/08/24 23:59 23:59 23:59 Intake Total 2505 / 2505 931.67 / 931.67 Output Total 650 / 650 250 / 250 Balance 1855 / 1855 681.67 / 681.67 Lab / Micro Data Attestation: I reviewed the patient's lab results. 05/08/24 04:40 05/08/24 04:40 Labs: Laboratory Results - last 24 hr 05/07/24 09:45: WBC 25.5 H, RBC 4.40, Hgb 14.5, Hct 42.4, MCV 96.4, MCH 33.0 H, MCHC 34.2, RDW Std Deviation 46.4 H, RDW Coeff of Timothy 13.0, Plt Count 135 L, MPV 10.3, Immature Gran % (Auto) 2.500 H, Neut % (Auto) 91.0 H, Lymph % (Auto) 1.6 L, [place] % (Auto) 4.8, Eos % (Auto) 0.0, Baso % (Auto) 0.1, Absolute Neuts (auto) 23.2 H, Absolute Lymphs (auto) 0.40 L, Nucleated RBC % 0, Toxic Granulation 2+, PT Cancelled, INR Cancelled, APTT Cancelled, Sodium 131 L, Potassium 2.8 L, Chloride 94 L, Carbon Dioxide 21.0, Anion Gap 16 H, BUN 34 H, Creatinine 0.99, Estim Creat Clear Calc 29.57, Est GFR (MDRD) Af Amer 73, Est GFR (MDRD) Non-Af 60, BUN/Creatinine Ratio 34.4 H, Glucose 146 H, Lactic Acid 5.2 H*, Calcium 9.5, Total Bilirubin 1.00, AST 119 H, ALT 35, Alkaline Phosphatase 139 H, Troponin I High Sens 88 H, Total Protein 6.1 L, Albumin 2.1 L, Globulin 4.0, Albumin/Globulin Ratio 0.5 L, Urine Color Yellow, Urine Clarity Clear, Urine pH 6.0, Ur Specific [place] 1.020, Urine Protein 100 H, Urine Glucose (UA) 250 H, Urine Ketones 15 H, Urine Occult Blood 250 H, Urine Nitrite Negative, Urine Bilirubin 1 H, Urine Urobilinogen 4 H, Ur Leukocyte Esterase 25 H, Urine RBC 10-25 SEEN, Urine WBC 0 SEEN, Ur Squamous Epith Cells 0 SEEN, Urine Bacteria 0 SEEN, Hyaline Casts 0-5 SEEN, Urine Mucus 0 SEEN 05/07/24 10:40: PT 15.3 H, INR 1.2, APTT 37.8 H 05/07/24 12:34: Salicylates 7.5 05/07/24 14:15: Lactic Acid 6.4 H* 05/07/24 17:25: Lactic Acid 3.7 H* 05/08/24 04:40: WBC 25.4 H, RBC 3.22 L, Hgb 10.8 L, Hct 31.0 L, MCV 96.3, MCH 33.5 H, MCHC 34.8, RDW Std Deviation 46.1 H, RDW Coeff of [place] 13.1, Plt Count 41 L*, MPV 12.0, Immature Gran % (Auto) 2.100 H, Neut % (Auto) 93.5 H, Lymph % (Auto) 1.4 L, [place] % (Auto) 3.0, Eos % (Auto) 0.0, Baso % (Auto) 0.0, Absolute Neuts (auto) 23.8 H, Absolute Lymphs (auto) 0.35 L, Nucleated RBC % 0, PT 17.6 H, INR 1.5, Lactic Acid 2.2 H* Micro: Microbiology 05/07/24 10:15 Blood Culture (Wb) - Left Hand Blood Culture - Preliminary 05/07/24 10:40 Blood Culture (Wb) - Right Hand Bacteria Detection (PCR) - Preliminary Streptococcus pneumoniae 05/07/24 10:40 Blood Culture (Wb) - Right Hand Blood Culture - Preliminary 05/07/24 16:16 Mucosa - Nasopharyngeal SARS-CoV-2, Influenza & RSV (PCR) - Final ABG Data ABG results: ABG 05/07/24 05/07/24 05/07/24 10:12 16:21 23:18 Specimen Type ART ART ART Sample Site L Radial L Brach R Brach pH 7.50 H 7.46 H 7.44 Bicarbonate Actual 19.9 L 17.9 L 18.5 L Total CO2 21 19 19 Base Excess -3 L -6 L -6 L O2 Saturation 98 94 L 95 O2 % 6.0 2.0 1.0 ABG pCO2 25.8 L 25.4 L 27.3 L ABG pO2 101 H 64 L 72 L Yaniv Test Positive O2 Delivery Device Cannula Cannula Cannula Vent Mode Not entered Not entered Not entered Radiography Diagnostic Testing: Radiology Impression Chest X-Ray 05/07/24 09:42 IMPRESSION: Left perihilar and left lower lung infiltrates could be due to pneumonia. Electronically Signed: Cayden Small MD at 10:23 EDT Reading Location ID and State: [facility] / [place] Tel , Service support , Brain CT 05/07/24 09:48 IMPRESSION: 1. No acute intracranial process. 2. Small old lacunar infarct in the left basal ganglia. 3. Chronic involutional changes of the brain Electronically Signed: Cayden Small MD at 10:16 EDT Reading Location ID and State: [facility] / [place] Tel , Service support , Chest CTA 05/07/24 12:22 IMPRESSION: 1. No evidence of pulmonary embolism or aortic dissection. 2. Moderate pericardial effusion. 3. Patchy infiltrates bilaterally worse on the left lower lobe concerning for pneumonia. 4. Probable underlying chronic fibrotic changes and bronchiectatic changes. Electronically Signed: Cayden Small MD at 12:56 EDT , Physical Exam Const Constitutional Narrative: Frail and cachectic in appearance. The patient will arouse to verbal stimulation, but is nonverbal and will not engage in any form of conversation. However, she does move all extremities spontaneously. HEENT normocephalic and head/scalp atraumatic Eyes EOMs intact bilaterally and conjunctivae normal Neck supple General: trachea midline Chest inspection of chest normal Resp Effort and Inspection: tachypneic Auscultation: diminished lung sounds Cardio S1 normal heart sound and S2 normal heart sound Rate: tachycardic GI normal to inspection, nondistended, normoactive bowel sounds Extremity no clubbing, cyanosis or edema Skin no rashes or lesions noted Neuro moves all extremities Psych Mood & Affect: flat affect Charges/Coding Visit Charges Inpatient E&M: 45623 Subs Hosp L3
[2024-05-08 06:44] LABS: Differential Comment SCANNED; Platelet Estimate MKD DEC (ADEQ); Toxic Granulation 3+
[2024-05-08 07:20] LABS: ALB/GLOB Ratio 0.5 RATIO (0.9-2.4); AST(SGOT) 180 U/L (15-37); Alanine Aminotransfer ALT/SGPT 48 U/L (13-56); Albumin, Serum 1.7 g/dL (3.2-5.0); Alkaline Phosphatase 111 U/L (45-117); Anion Gap 11 (5-15); BUN 27 mg/dL (7-18); BUN/Creat Ratio 43.5 RATIO (10-20); Calcium,Total 7.7 mg/dL (8.5-10.1); Chloride 108 mmol/L (98-107); Creatinine, Serum 0.62 mg/dL (0.55-1.02); EST Glomerular Filtration Rate 103 mL/min (>60); Est Glom Filt Rate - Afr Amer 124 mL/min (>60); Estimated Creatinine Clearance 48.09 ml/min; Globulin 3.2 g/dL (2.2-4.2); Glucose 115 mg/dL (74-106); Potassium 2.2 mmol/L (3.5-5.1); Protein, Total 4.9 g/dL (6.4-8.2); Sodium Level 140 mmol/L (136-145); Thyroid Stim Hormone (TSH) 1.26 uIU/mL (0.358-3.74)
[2024-05-08] MEDS: Ipratropium/Albuterol Sulfate 3 ML AMPUL.NEB INHALATION ×3 (07:20→19:40)
[2024-05-08] MEDS: 0.9% Saline Lock 10 ML Syringe IV ×2 (09:07→17:19)
[2024-05-08 09:54] LABS: Amphetamine Urine VISTA NEGATIVE (<1000 ng/mL); Barbiturate Urine VISTA NEGATIVE (< 200 ng/mL); Benzodiazepine Urine VISTA NEGATIVE (< 200 ng/mL); Cocaine Urine VISTA NEGATIVE (< 300 ng/mL); Ecstacy Urine VISTA NEGATIVE (< 500 ng/mL); Methadone Urine VISTA NEGATIVE (< 300 ng/mL); PCP Urine VISTA NEGATIVE (< 25 ng/mL); THC Urine VISTA NEGATIVE (< 50 ng/mL); Vista UDS pH Range 5
[2024-05-08 09:56] LABS: AST(SGOT) 186 U/L (15-37); Alanine Aminotransfer ALT/SGPT 51 U/L (13-56); Albumin, Serum 1.7 g/dL (3.2-5.0); Alkaline Phosphatase 119 U/L (45-117); Globulin 3.2 g/dL (2.2-4.2); Protein, Total 4.9 g/dL (6.4-8.2); Thyroid Stim Hormone (TSH) 1.28 uIU/mL (0.358-3.74)
--- NOTE | 2024-05-08 09:59 | PN_ITS ---
Subjective Subjective Patient seen and examined. Her and daughter were by her bedside. She was having an echo at time of review. Patient remains very lethargic and weak. She would try to push my hand away with sternal rub, but would not respond verbally. Unable to do review of systems. Per and daughter, she is usually able to carry out her activities of daily living. Her blood cultures are positive for Strep pneumoniae. Her platelets are also down to 41 from 135 yesterday. Potassium is also 2.2. Objective Data Objective Data Vital Signs: Vital Signs Temp Pulse Resp BP Pulse Ox O2 Del Method O2 Flow Rate 98.3 F 111 H 33 H 136/89 H 95 Nasal Cannula 2 05/08/24 00:00 05/08/24 07:00 05/08/24 07:00 05/08/24 07:00 05/08/24 07:00 05/08/24 07:00 05/08/24 07:00 Oxygen Flow Rate (L/min) 2 Oxygen Delivery Method Nasal Cannula Weight: 72 lb 4.986 oz Body Mass Index (BMI) 14.6 Intake & Output: Intake and Output for Last 24 Hours 05/06/24 05/07/24 05/08/24 23:59 23:59 23:59 Intake Total 2505 / 2505 931.67 / 931.67 Output Total 650 / 650 365 / 365 Balance 1855 / 1855 566.67 / 566.67 Medical Nutrition Assessment Dietitian: Malnutrition Criteria Met Start: 05/08/24 09:49 Freq: Status: Active Protocol: Document 05/08/24 09:49 BETINA (Rec: 05/08/24 09:49 BETINA [id number]) Nutrition Malnutrition Evidence of Malnutrition Exists Yes Malnutrition (severe): Chronic Evidenced By Suboptimal Energy Intake ( Severe),Weight Loss (Severe), Physical Changes (Severe) Clinical Problem Chronic Disease or Condition Related Malnutrition Etiology related to lung cancer and removal of LLL of lung and subsequent inadequate energy intake Signs/Symptoms as evidenced by 5% wt loss x several months, poor po intake w/ <75% of est nutritional intake and obvious fat loss/muscle depletion throughout body; BMI 14.6 Status Active Problem Recommendation Dietitian Recommendations/Changes As medically able, rec JOHNATHAN to liberal Regular w/ magic cup at lunch and dinner for increased nutrition if consumed As medically able, rec Ensure Plus High Protein 4x/day w/ medpass (prefers vanilla) for increased nutrition if consumed. Rec consider appetite stimulant to help encourage increased po intake. If NPO prolonged and/or continued poor po intake/wt loss - may wish to consider supplemental nutrition support to help prevent further decline in nutritional status if in accordance w/ pt/family wishes. Lab / Micro Data 05/08/24 04:40 05/08/24 04:40 Labs: Laboratory Results - last 24 hr 05/07/24 09:45: WBC 25.5 H, RBC 4.40, Hgb 14.5, Hct 42.4, MCV 96.4, MCH 33.0 H, MCHC 34.2, RDW Std Deviation 46.4 H, RDW Coeff of [place] 13.0, Plt Count 135 L, MPV 10.3, Immature Gran % (Auto) 2.500 H, Neut % (Auto) 91.0 H, Lymph % (Auto) 1.6 L , [place] % (Auto) 4.8, Eos % (Auto) 0.0, Baso % (Auto) 0.1, Absolute Neuts (auto) 23.2 H, Absolute Lymphs (auto) 0.40 L, Nucleated RBC % 0, Toxic Granulation 2+, Sodium 131 L, Potassium 2.8 L, Chloride 94 L, Carbon Dioxide 21.0, Anion Gap 16 H, BUN 34 H, Creatinine 0.99, Estim Creat Clear Calc 29.57, Est GFR (MDRD) Af Amer 73, Est GFR (MDRD) Non-Af 60, BUN/Creatinine Ratio 34.4 H, Glucose 146 H, L actic Acid 5.2 H*, Calcium 9.5, Total Bilirubin 1.00, AST 119 H, ALT 35, A lkaline Phosphatase 139 H, Troponin I High Sens 88 H, Total Protein 6.1 L, A lbumin 2.1 L, Globulin 4.0, Albumin/Globulin Ratio 0.5 L, Urine Color Yellow, Urine Clarity Clear, Urine pH 6.0, Ur Specific [place] 1.020, Urine Protein 100 H, Urine Glucose (UA) 250 H, Urine Ketones 15 H, Urine Occult Blood 250 H, Urine Nitrite Negative, Urine Bilirubin 1 H, Urine Urobilinogen 4 H, Ur Leukocyte Esterase 25 H, Urine RBC 10-25 SEEN, Urine WBC 0 SEEN, Ur Squamous Epith Cells 0 SEEN, Urine Bacteria 0 SEEN, Hyaline Casts 0-5 SEEN, Urine Mucus 0 SEEN 05/07/24 10:40: PT 15.3 H, INR 1.2, APTT 37.8 H 05/07/24 12:34: Salicylates 7.5 05/07/24 14:15: Lactic Acid 6.4 H* 05/07/24 17:25: Lactic Acid 3.7 H* 05/08/24 04:40: WBC 25.4 H, RBC 3.22 L, Hgb 10.8 L, Hct 31.0 L, MCV 96.3, MCH 33.5 H, MCHC 34.8, RDW Std Deviation 46.1 H, RDW Coeff of [place] 13.1, Plt Count 41 L*, MPV 12.0, Immature Gran % (Auto) 2.100 H, Neut % (Auto) 93.5 H, Lymph % (Auto) 1.4 L, [place] % (Auto) 3.0, Eos % (Auto) 0.0, Baso % (Auto) 0.0, Absolute Neuts (auto) 23.8 H, Absolute Lymphs (auto) 0.35 L, Nucleated RBC % 0, Differential Comment SCANNED, Diff Path Review May foll, Toxic Granulation 3+, Platelet Estimate MKD DEC, PT 17.6 H, INR 1.5, Sodium 140, Potassium 2.2 L*, C hloride 108 H, Carbon Dioxide 21.0, Anion Gap 11, BUN 27 H, Creatinine 0.62, Estim Creat Clear Calc 48.09, Est GFR (MDRD) Af Amer 124, Est GFR (MDRD) Non-Af 103, BUN/Creatinine Ratio 43.5 H, Glucose 115 H, Lactic Acid 2.2 H*, Calcium 7.7 L, Phosphorus 2.0 L, Total Bilirubin 1.00, Direct Bilirubin 0.70 H, AST 180 H, ALT 48, Alkaline Phosphatase 111, Total Protein 4.9 L, Albumin 1.7 L, Globulin 3.2, Albumin/Globulin Ratio 0.5 L, TSH 1.26 05/08/24 09:05: Total Bilirubin 1.00, Direct Bilirubin 0.70 H, AST 186 H, ALT 51, Alkaline Phosphatase 119 H, Total Protein 4.9 L, Albumin 1.7 L, Globulin 3.2, TSH 1.28, Urine Opiates Screen NEGATIVE, Urine Methadone Screen NEGATIVE, Ur Barbiturates Screen NEGATIVE, Ur Phencyclidine Scrn NEGATIVE, Ur Amphetamines Screen NEGATIVE, MDMA (Ecstasy) Screen NEGATIVE, U Benzodiazepines Scrn NEGATIVE, Urine Cocaine Screen NEGATIVE, U Cannabinoids Screen NEGATIVE, Ur Drug Screen Comment Micro: Microbiology 05/07/24 10:40 Blood Culture (Wb) - Right Hand Bacteria Detection (PCR) - Final Streptococcus pneumoniae 05/07/24 10:40 Blood Culture (Wb) - Right Hand Blood Culture - Preliminary 05/07/24 10:15 Blood Culture (Wb) - Left Hand Blood Culture - Preliminary 05/07/24 16:16 Mucosa - Nasopharyngeal SARS-CoV-2, Influenza & RSV (PCR) - Final ABG Data ABG results: ABG 05/07/24 05/07/24 05/07/24 10:12 16:21 23:18 Specimen Type ART ART ART Sample Site L Radial L Brach R Brach pH 7.50 H 7.46 H 7.44 Bicarbonate Actual 19.9 L 17.9 L 18.5 L Total CO2 21 19 19 Base Excess -3 L -6 L -6 L O2 Saturation 98 94 L 95 O2 % 6.0 2.0 1.0 ABG pCO2 25.8 L 25.4 L 27.3 L ABG pO2 101 H 64 L 72 L Yaniv Test Positive O2 Delivery Device Cannula Cannula Cannula Vent Mode Not entered Not entered Not entered Radiography Diagnostic Testing: Radiology Impression Chest X-Ray 05/07/24 09:42 IMPRESSION: Left perihilar and left lower lung infiltrates could be due to pneumonia. Electronically Signed: Cayden Small MD at 10:23 EDT , Brain CT 05/07/24 09:48 IMPRESSION: 1. No acute intracranial process. 2. Small old lacunar infarct in the left basal ganglia. 3. Chronic involutional changes of the brain Electronically Signed: Cayden Small MD at 10:16 EDT , Chest CTA 05/07/24 12:22 IMPRESSION: 1. No evidence of pulmonary embolism or aortic dissection. 2. Moderate pericardial effusion. 3. Patchy infiltrates bilaterally worse on the left lower lobe concerning for pneumonia. 4. Probable underlying chronic fibrotic changes and bronchiectatic changes. Electronically Signed: Cayden Small MD at 12:56 EDT , Physical Exam Const Constitutional Narrative: patient very frail, cachectic, weak and lethargic. Orientation / Consciousness: confused and lethargic HEENT normocephalic and head/scalp atraumatic Mouth: dry mucous membranes Eyes PERRL and EOMs intact bilaterally Neck no lymphadenopathy and supple Lymph Lymphatic: no lymphadenopathy noted and no lymphedema noted Resp Resp Narrative: mildly diminished breath sounds bibasally, no wheezes or crackles. on 2L of oxygen. Cardio regular rhythm, S1 normal heart sound and S2 normal heart sound Cardio Narrative: tachypneic GI normal to inspection, nondistended, normoactive bowel sounds, soft to palpation, non-tender and non-distended Extremity normal capillary refill and no clubbing, cyanosis or edema General Extremity: no tenderness to palpation of joints or extremities Skin Skin Narrative: has ecchymotic patches over her upper extremities which are chronic, per and daughter. Neuro Neuro Narrative: lethargic, minimally responsive, moves all her extremities. Motor Exam: general weakness Assessment & Plan Assessment/Plan (1) Altered mental status: (2) Severe sepsis: (3) Pneumonia: PLAN: Plan #Acute encephalopathy * etiology is likely due to severe sepsis from pneumonia * patient is still lethargic, and minimally responsive. * blood cultures growing Strep pneumoniae. Potassium is also low at 2.2. * On IV ceftriaxon and azithromycin * was hydrated with IVF per sepsis protocol * CT of the brain on admission showed no acute intracranial pathology. * critical care on board * neurology consulted and requested EEG and MRI brain with and without contrast * #Sepsis due to pneumococcal pneumonia: as above. wbc is elevated at 25. #THrombocytopenia * platelets are down to 41, from 135 yesterday. * May be due to acute infection. Has ecchymotic patches on her arms, which are chronic * Will monitor closely, if platelets trend down some more, will consult hematology * #History of B cell lymphoma * in remission now, according to and daughter. * * #Hypokalemia: K is 2.2. Will replace aggressively and trend. #Pericardial effusion: as per CT. 2D echo ordered. #History of COPD: not in exacerbation. Breathing treatments with bronchodilators. #History of left lower lobectomy: for cancer. stable. #Depression: on duloxetine #Hypertension: on nifedipine 30mg XR daily. #GERD: on PPI #Hyperlipidemia: on statin. DVT prophylaxis: DC lovenox due to thrombocytopenia Charges/Coding Visit Charges Inpatient E&M: 61542 Subs Hosp L3
[2024-05-08 10:02] LABS: Ammonia < 10.0 umol/L (11-32)
[2024-05-08] MEDS: 0.9% Normal Saline (250mL Bag) 250 ML 15 ML IV ×2 (10:15→10:35)
[2024-05-08] MEDS: Pantoprazole Sodium 40 MG in 0.9% Normal Saline (100mL MB+) 100 ML 330 MG IV (10:16)
[2024-05-08] MEDS: Potassium Chloride IVPB 40 MEQ 100 MEQ IV BOLUS ×4 (10:36→14:00)
[2024-05-08] MEDS: Ceftriaxone 2 GM in 0.9% Normal Saline (50mL MB+) 50 ML IV (10:36)
[2024-05-08 11:17] LABS: Bedside Glucose 98 mg/dL (74-106)
--- NOTE | 2024-05-08 11:20 | CASEMGMT ---
RN CM snack bar attendant CM to pt room for initial assessment. Pt is currently non-verbal and unable to answer this RN CM questions for assessment. Pt at bedside and willing to answer this RN CM questions. Care providers, pharmacy, and demographics verified. Admitting dx: NAIF IRIZARRY Strata: 2 PCP: Dariel Hernandez Specialists: Cezar ([facility]). Thoracic Surgery Department [facility]. Preferred Pharmacy: [facility] Insurance: ANTHEM Prescription Benefit: Yes LNOK: Corbin Hemant (H) Living Arrangements: Pt lives with her in a 2 story home with a basement with handrails throughout and 1 step to enter ADLs/IADLs: Pt states that the pt was independent one week prior to arrival here. Pt states that her needs and demands have been continually increasing for the past week. Transportation: Pt normally drives. drives . DME: Pt has been using a W/C for the last week d/t back pain. Pt is also currently on 2L of oxygen. Pt states that the pt normally does with on RA. CM to follow for potential oxygen needs. HHC/SNF: Denies history Plan: TBD. 6-Click is currently 12. Therapy eval is pending. CM and SW to follow pt progression in the hospital to decipher what the pt best qualifies for moving forward. Lio Dozier RN, CM
[2024-05-08] MEDS: Potassium Phosphate 30 MMOL in 0.9% Normal Saline (250mL Bag) 250 ML 42 MMOL IV (11:56)
--- NOTE | 2024-05-08 13:18 | NEURO.CONS ---
Assessment and Plan: Neuro Assessment/Plan Michelle Marcos is a 63-year-old female with a past medical history of B-cell lymphoma first diagnosed 7 years ago s/p R-CHOP with recent relapse 2022 s/p left lower lobe resection and chemotherapy (unclear which type). She presented to [facility] on 05/07/2024 for altered mental status. She was found to be bacteremic with left lower lobe pneumonia as source. Blood cultures positive for strep pneumonia. Teleneurology is consulted for altered mental status. Overall, encephalopathy likely secondary to ongoing infection. Given critical illness and past medical history, recommend the following 1. Recommened MRI brain with and without contrast 2. Recommend routine EEG 3. It would be helpful to obtain 2022 chemotherapy agent used in treatment of lymphoma relapse as well as timing of last administration as some agents such as immune check point inhibits may contribute to clinical picture if given within the last 6 months I personally attended this patient and spent a total time of 65 minutes evaluating this patient including clinical assessment, review of chart, medical history imaging, and determining appropriate treatment and workup. HPI Consult Data Date of Consult: 05/08/24 HPI Narrative HPI Narrative: Michelle Marcos is a 63-year-old female with a past medical history of hyperlipidemia, B-cell lymphoma first diagnosed 7 years ago s/p R-CHOP with recent relapse 2022 s/p left lower lobe resection and chemotherapy (unclear which type) who presented to [facility] on 05/07/2024 for altered mental status. Patient went to bed on 05/06/24 around 2100 and when woke up the next morning 05/07/24 she was unresponsive. On arrival to the ED, she was afebrile. HR 128-135, BP 140-150 systolic to 120s diastolic, on 6L NC. Serum lactate elevated at 5.2. UA normal. CXR with left perihilar and lower lung infiltrates, concerning for pneumonia. CT chest confirming left lower lobe pneumonia. Blood cultures positive for strep pneumonia. CT Head with old left basal ganglia infarct, no acute changes. and daughter in the room provides HPI. Michelle had been noted to be more lethargic last week, and even more so yesterday. For example she was spending more time in her recliner than typical. describes that yesterday when he found her in the morning she was completely non-responsive. Describes her eyes were open, but with a glazed look. She felt very clammy. Her mental status has improved some since arrival. She said 3 words, and has been spontaneously moving limbs as compared to prior being completely non-responsive, not really moving. [facility] Medical History Lymphoma Depression GERD (gastroesophageal reflux disease) Hyperlipemia Home Medications ?Medication ?Instructions ?Recorded ?Last Taken ?Type simvastatin 40 mg tablet 40 mg PO DAILY 07/30/18 Unknown History calcium carbonate 600 mg-vitamin 1 ea PO BID 10/11/18 Unknown History D3 20 mcg (800 unit) tablet (Caltrate with Vitamin D3) naproxen 500 mg tablet,delayed 500 mg PO BID PRN Pain 12/27/22 Unknown History release omeprazole 20 mg capsule,delayed 20 mg PO DAILY 12/27/22 Unknown History release duloxetine 30 mg capsule,delayed 30 mg PO DAILY 05/07/24 Unknown History release gabapentin 300 mg capsule 300 mg PO TID 05/07/24 Unknown History magnesium chloride 71.5 mg 143 mg PO DAILY 05/07/24 Unknown History (magnesium chloride) tablet,delayed release (Slow-Mag) methocarbamol 500 mg tablet 750 mg PO Q6H PRN PRN pain 05/07/24 Unknown History nifedipine 30 mg tablet,extended 30 mg PO DAILY 05/07/24 Unknown History release 24 hr thiamine HCl (vitamin B1) 100 mg 100 mg PO DAILY 05/07/24 Unknown History tablet tiotropium bromide 2.5 2 puff inhalation DAILY 05/07/24 Unknown History mcg/actuation mist for inhalation (Spiriva Respimat) vitamin B complex (Vitamins B 1 cap PO DAILY 05/07/24 Unknown History Complex capsule) Allergy/AdvReac Type Severity Reaction Status Date / Time No Known Allergies Allergy Verified 06/04/23 10:39 Family History no significant family his Surgical History unable to obtain Social History Smoking Status: Current every day smoker tobacco type: cigarettes Vital Signs Vital Signs Vital Signs: 05/07/24 14:00 05/07/24 14:30 05/07/24 15:21 Temperature 98 F Temperature Source Axillary Pulse Rate 109 H 122 H 118 H Pulse Strength Respiratory Rate 30 H 32 H 33 H Respiratory Effort Respiratory Depth Respiratory Pattern Blood Pressure 173/109 H 157/103 H 164/100 H Blood Pressure Mean 130 121 121 Blood Pressure Source Monitor Blood Pressure Position Semi-Fowlers Blood Pressure Location Left Arm Pulse Ox 98 100 97 Oxygen Delivery Method Nasal Cannula Nasal Cannula Nasal Cannula Oxygen Flow Rate (L/min) 6 6 6 05/07/24 15:30 05/07/24 15:45 05/07/24 16:00 Temperature 98.4 F Temperature Source Temporal Pulse Rate 120 H 119 H 116 H Pulse Strength Respiratory Rate 32 H 34 H 30 H Respiratory Effort Respiratory Depth Respiratory Pattern Blood Pressure 159/103 H 164/98 H 164/106 H Blood Pressure Mean 121 120 125 Blood Pressure Source Monitor Monitor Monitor Blood Pressure Position Semi-Fowlers Semi-Fowlers Semi-Fowlers Blood Pressure Location Left Arm Left Arm Left Arm Pulse Ox 99 96 96 Oxygen Delivery Method Nasal Cannula Nasal Cannula Nasal Cannula Oxygen Flow Rate (L/min) 6 4 2 05/07/24 16:00 05/07/24 16:34 05/07/24 16:34 Temperature Temperature Source Pulse Rate 120 H 117 H Pulse Strength Respiratory Rate 34 H Respiratory Effort Labored Accessory Muscle Use Respiratory Depth Shallow Respiratory Pattern Tachypnea Blood Pressure Blood Pressure Mean Blood Pressure Source Blood Pressure Position Blood Pressure Location Pulse Ox 98 Oxygen Delivery Method Nasal Cannula Nasal Cannula Oxygen Flow Rate (L/min) 2 2 05/07/24 17:00 05/07/24 18:00 05/07/24 19:00 Temperature 98.4 F Temperature Source Temporal Pulse Rate 118 H 124 H 121 H Pulse Strength Respiratory Rate 20 H 33 H 31 H Respiratory Effort Respiratory Depth Respiratory Pattern Blood Pressure 163/93 H 149/88 H 150/97 H Blood Pressure Mean 116 108 114 Blood Pressure Source Monitor Monitor Monitor Blood Pressure Position Semi-Fowlers Semi-Fowlers Semi-Fowlers Blood Pressure Location Left Arm Left Arm Left Arm Pulse Ox 98 98 97 Oxygen Delivery Method Nasal Cannula Nasal Cannula Nasal Cannula Oxygen Flow Rate (L/min) 2 2 2 05/07/24 20:00 05/07/24 20:00 05/07/24 20:14 Temperature 97.8 F Temperature Source Temporal Pulse Rate 123 H Pulse Strength Normal (2+) Respiratory Rate 30 H Respiratory Effort Normal Non-Labored Respiratory Depth Shallow Respiratory Pattern Tachypnea Blood Pressure 148/97 H Blood Pressure Mean 114 Blood Pressure Source Monitor Blood Pressure Position Semi-Fowlers Blood Pressure Location Left Arm Pulse Ox 97 Oxygen Delivery Method Nasal Cannula Nasal Cannula Oxygen Flow Rate (L/min) 2 2 05/07/24 21:00 05/07/24 22:00 05/07/24 22:50 Temperature Temperature Source Pulse Rate 121 H 119 H 118 H Pulse Strength Respiratory Rate 32 H 32 H 30 H Respiratory Effort Respiratory Depth Respiratory Pattern Normal Blood Pressure 151/92 H 146/98 H Blood Pressure Mean 111 114 Blood Pressure Source Monitor Monitor Blood Pressure Position Semi-Fowlers Semi-Fowlers Blood Pressure Location Left Arm Left Arm Pulse Ox 97 97 Oxygen Delivery Method Nasal Cannula Nasal Cannula Oxygen Flow Rate (L/min) 2 2 05/07/24 22:50 05/07/24 23:00 05/08/24 00:00 Temperature 98.3 F Temperature Source Temporal Pulse Rate 118 H 124 H Pulse Strength Respiratory Rate 30 H 30 H Respiratory Effort Respiratory Depth Respiratory Pattern Blood Pressure 147/97 H 144/99 H Blood Pressure Mean 113 114 Blood Pressure Source Monitor Monitor Blood Pressure Position Semi-Fowlers Semi-Fowlers Blood Pressure Location Left Arm Left Arm Pulse Ox 96 98 97 Oxygen Delivery Method Nasal Cannula Nasal Cannula Nasal Cannula Oxygen Flow Rate (L/min) 1 2 2 05/08/24 00:00 05/08/24 01:00 05/08/24 02:00 Temperature Temperature Source Pulse Rate 117 H 116 H Pulse Strength Respiratory Rate 29 H 30 H Respiratory Effort Normal Non-Labored Respiratory Depth Shallow Respiratory Pattern Tachypnea Blood Pressure 145/94 H 144/88 H Blood Pressure Mean 111 106 Blood Pressure Source Monitor Monitor Blood Pressure Position Semi-Fowlers Semi-Fowlers Blood Pressure Location Left Arm Left Arm Pulse Ox 96 97 Oxygen Delivery Method Nasal Cannula Nasal Cannula Nasal Cannula Oxygen Flow Rate (L/min) 2 2 2 05/08/24 03:00 05/08/24 04:00 05/08/24 04:00 Temperature Temperature Source Pulse Rate 113 H 115 H Pulse Strength Respiratory Rate 32 H 32 H Respiratory Effort Normal Non-Labored Respiratory Depth Shallow Respiratory Pattern Tachypnea Blood Pressure 151/87 H 142/88 H Blood Pressure Mean 108 106 Blood Pressure Source Monitor Monitor Blood Pressure Position Semi-Fowlers Semi-Fowlers Blood Pressure Location Left Arm Left Arm Pulse Ox 97 97 Oxygen Delivery Method Nasal Cannula Nasal Cannula Nasal Cannula Oxygen Flow Rate (L/min) 2 2 2 05/08/24 05:00 05/08/24 06:00 05/08/24 07:00 Temperature Temperature Source Pulse Rate 112 H 105 H 111 H Pulse Strength Respiratory Rate 23 H 32 H 33 H Respiratory Effort Respiratory Depth Respiratory Pattern Blood Pressure 146/90 H 151/86 H 136/89 H Blood Pressure Mean 108 107 104 Blood Pressure Source Monitor Monitor Monitor Blood Pressure Position Semi-Fowlers Semi-Fowlers Semi-Fowlers Blood Pressure Location Left Arm Left Arm Left Arm Pulse Ox 98 92 95 Oxygen Delivery Method Room Air Nasal Cannula Nasal Cannula Oxygen Flow Rate (L/min) 2 2 05/08/24 08:00 05/08/24 09:00 05/08/24 10:00 Temperature 97.8 F 97.9 F Temperature Source Temporal Temporal Pulse Rate 112 H 105 H Pulse Strength Normal (2+) Respiratory Rate 26 H 28 H Respiratory Effort Respiratory Depth Respiratory Pattern Blood Pressure 149/98 H 133/79 H Blood Pressure Mean 115 97 Blood Pressure Source Monitor Monitor Blood Pressure Position Semi-Fowlers Semi-Fowlers Blood Pressure Location Left Arm Left Arm Pulse Ox 99 97 Oxygen Delivery Method Nasal Cannula Nasal Cannula Oxygen Flow Rate (L/min) 1 1 05/08/24 10:00 05/08/24 10:00 05/08/24 11:00 Temperature 97.8 F 97.9 F Temperature Source Temporal Temporal Pulse Rate 110 H 106 H Pulse Strength Respiratory Rate 21 H 28 H Respiratory Effort Normal Non-Labored Respiratory Depth Shallow Respiratory Pattern Tachypnea Blood Pressure 153/89 H 118/85 H Blood Pressure Mean 110 96 Blood Pressure Source Monitor Monitor Blood Pressure Position Semi-Fowlers Semi-Fowlers Blood Pressure Location Left Arm Left Arm Pulse Ox 95 99 Oxygen Delivery Method Nasal Cannula Nasal Cannula Nasal Cannula Oxygen Flow Rate (L/min) 1 1 1 05/08/24 12:00 05/08/24 13:00 Temperature 97.8 F 97.9 F Temperature Source Temporal Temporal Pulse Rate 108 H 107 H Pulse Strength Respiratory Rate 25 H 26 H Respiratory Effort Respiratory Depth Respiratory Pattern Blood Pressure 126/87 H 144/85 H Blood Pressure Mean 100 104 Blood Pressure Source Monitor Monitor Blood Pressure Position Semi-Fowlers Semi-Fowlers Blood Pressure Location Left Arm Left Arm Pulse Ox 96 98 Oxygen Delivery Method Nasal Cannula Nasal Cannula Oxygen Flow Rate (L/min) 1 1 Weight Weight: 32.8 kg Body Mass Index (BMI) 14.6 EEG Results Procedure Details EEG Procedure Details: MICHELLE MARCOS is a 63 year old F with a past medical history of , who presents for evaluation of Electroencephalogram on DATE at TIME Physical Exam Neuro Neuro Narrative: Patient is laying in bed with eyes closed upon arrival. She does not open eyes to verbal command nor to noxious stimulation. No words are observed, but vocalizations such as moaning are appreciated. When eyes are forcefully opened, pupils are equal and reactive. She does not attempt to prevent eye opening. She does maintain eye opening for a few seconds prior to closing them again. Face appears symmetric at rest and with grimace. All 4 extremities are observed to have spontaneous movement including antigravity movement. Upper extremities localize to noxious stimulation, bilateral legs withdrawal. There is no increased tone, tone perhaps decreased. Medical Records Data Medical Nutrition Assessment Dietitian: Malnutrition Criteria Met Start: 05/08/24 09:49 Freq: Status: Active Protocol: Document 05/08/24 09:49 [facility] (Rec: 05/08/24 09:49 [facility] [id number]) Nutrition Malnutrition Evidence of Malnutrition Exists Yes Malnutrition (severe): Chronic Evidenced By Suboptimal Energy Intake ( Severe),Weight Loss (Severe), Physical Changes (Severe) Clinical Problem Chronic Disease or Condition Related Malnutrition Etiology related to lung cancer and removal of LLL of lung and subsequent inadequate energy intake Signs/Symptoms as evidenced by 5% wt loss x several months, poor po intake w/ <75% of est nutritional intake and obvious fat loss/muscle depletion throughout body; BMI 14.6 Status Active Problem Recommendation Dietitian Recommendations/Changes As medically able, rec JOHNATHAN to liberal Regular w/ magic cup at lunch and dinner for increased nutrition if consumed As medically able, rec Ensure Plus High Protein 4x/day w/ medpass (prefers vanilla) for increased nutrition if consumed. Rec consider appetite stimulant to help encourage increased po intake. If NPO prolonged and/or continued poor po intake/wt loss - may wish to consider supplemental nutrition support to help prevent further decline in nutritional status if in accordance w/ pt/family wishes. Lab / Micro Data 05/08/24 04:40 05/08/24 04:40 Labs: Laboratory Results - last 24 hr 05/07/24 14:15: Lactic Acid 6.4 H* 05/07/24 17:25: Lactic Acid 3.7 H* 05/08/24 04:40: WBC 25.4 H, RBC 3.22 L, Hgb 10.8 L, Hct 31.0 L, MCV 96.3, MCH 33.5 H, MCHC 34.8, RDW Std Deviation 46.1 H, RDW Coeff of Timothy 13.1, Plt Count 41 L*, MPV 12.0, Immature Gran % (Auto) 2.100 H, Neut % (Auto) 93.5 H, Lymph % (Auto) 1.4 L, Hickman % (Auto) 3.0, Eos % (Auto) 0.0, Baso % (Auto) 0.0, Absolute Neuts (auto) 23.8 H, Absolute Lymphs (auto) 0.35 L, Nucleated RBC % 0, Differential Comment SCANNED, Diff Path Review March foll, Toxic Granulation 3+, Platelet Estimate MKD DEC, PT 17.6 H, INR 1.5, Sodium 140, Potassium 2.2 L*, Chloride 108 H, Carbon Dioxide 21.0, Anion Gap 11, BUN 27 H, Creatinine 0.62, Estim Creat Clear Calc 48.09, Est GFR (MDRD) Af Amer 124, Est GFR (MDRD) Non-Af 103, BUN/Creatinine Ratio 43.5 H, Glucose 115 H, Lactic Acid 2.2 H*, Calcium 7.7 L, Phosphorus 2.0 L, Total Bilirubin 1.00, Direct Bilirubin 0.70 H, AST 180 H, ALT 48, Alkaline Phosphatase 111, Total Protein 4.9 L, Albumin 1.7 L, Globulin 3.2, Albumin/Globulin Ratio 0.5 L, TSH 1.26 05/08/24 09:05: Total Bilirubin 1.00, Direct Bilirubin 0.70 H, AST 186 H, ALT 51, Alkaline Phosphatase 119 H, Ammonia < 10.0 L, Total Protein 4.9 L, Albumin 1.7 L, Globulin 3.2, TSH 1.28, Urine Opiates Screen NEGATIVE, Urine Methadone Screen NEGATIVE, Ur Barbiturates Screen NEGATIVE, Ur Phencyclidine Scrn NEGATIVE, Ur Amphetamines Screen NEGATIVE, MDMA (Ecstasy) Screen NEGATIVE, U Benzodiazepines Scrn NEGATIVE, Urine Cocaine Screen NEGATIVE, U Cannabinoids Screen NEGATIVE, Ur Drug Screen Comment , Blood Type A POSITIVE, Antibody Screen NEGATIVE 05/08/24 10:50: POC Glucose 98 Micro: Microbiology 05/07/24 09:45 Urine Catheter - Raymond Urine Culture - Preliminary Mixed Gram Pos & Gram Neg Org 05/07/24 10:40 Blood Culture (Wb) - Right Hand Bacteria Detection (PCR) - Final Streptococcus pneumoniae 05/07/24 10:40 Blood Culture (Wb) - Right Hand Blood Culture - Preliminary 05/07/24 10:15 Blood Culture (Wb) - Left Hand Blood Culture - Preliminary 05/07/24 16:16 Mucosa - Nasopharyngeal SARS-CoV-2, Influenza & RSV (PCR) - Final ABG Data ABG results: ABG 05/07/24 05/07/24 16:21 23:18 Specimen Type ART ART Sample Site L Brach R Brach pH 7.46 H 7.44 Bicarbonate Actual 17.9 L 18.5 L Total CO2 19 19 Base Excess -6 L -6 L O2 Saturation 94 L 95 O2 % 2.0 1.0 ABG pCO2 25.4 L 27.3 L ABG pO2 64 L 72 L Yaniv Test Positive O2 Delivery Device Cannula Cannula Vent Mode Not entered Not entered Imaging Radiology Impression Brain CT 05/07/24 09:48 IMPRESSION: 1. No acute intracranial process. 2. Small old lacunar infarct in the left basal ganglia. 3. Chronic involutional changes of the brain Electronically Signed: Cayden Small MD at 10:16 EDT , Echocardiogram 05/07/24 18:25 Interpretation Summary Normal LV size. Left ventricular systolic function is normal. The estimated ejection fraction is 60 %. Stage 1 diastolic dysfunction. Pulmonary artery systolic pressure is 45 mmHg. Small pericardial effusion. Ordering Physician: Natalie Crawford Performed By: Guzman Martin RCS Active Medications Active Medications Active Medications: Current Medications Generic Name Dose Route Start Last Admin Trade Name Freq PRN Reason Stop Dose Admin Albuterol/Ipratropium 3 ml 05/07/24 16:30 05/08/24 13:17 Ipratropium/Albuterol Sulfate 3 Ml Ampul.Neb INHALATION 3 ml Q6HWA.RT YADIEL Administration Atorvastatin Calcium 20 mg 05/07/24 22:00 05/07/24 20:17 Atorvastatin Calcium 20 Mg Tablet PO Not Given QHS YADIEL Dextrose 0 gm 05/07/24 15:21 Dextrose 50%-Water 25 Gm/50 Ml Disp.Syrin IV X1 PRN HYPOGLYCEMIA Protocol Duloxetine HCl 30 mg 05/08/24 10:00 05/08/24 11:00 Duloxetine Hcl 30 Mg Capsule PO Not Given DAILY YADIEL Gabapentin 300 mg 05/07/24 17:00 05/08/24 12:57 Gabapentin 300 Mg Capsule PO Not Given TIDCM YADIEL Glucagon 1 mg 05/07/24 15:21 Glucagon 1 Mg/Ml Syringe IM X1 PRN HYPOGLYCEMIA Sodium Chloride 1,000 mls @ 100 mls/hr 05/07/24 15:21 05/08/24 11:35 IV 100 mls/hr .Q10H YADIEL Administration Ceftriaxone Sodium 2 gm/ 50 mls @ 100 mls/hr 05/08/24 10:00 05/08/24 11:06 Sodium Chloride IV Infused Q24 YADIEL Infusion Pantoprazole Sodium 40 mg/ 110 mls @ 330 mls/hr 05/08/24 10:00 05/08/24 10:36 Sodium Chloride IV Infused Q24 YADIEL Infusion Potassium Chloride 10 meq in 100 mls @ 100 mls/hr 05/08/24 10:00 05/08/24 13:02 IV BOLUS 05/08/24 13:59 100 mls/hr Q1H YADIEL Administration Potassium Phosphate 30 mmol/ 260 mls @ 42 mls/hr 05/08/24 10:00 05/08/24 11:56 Sodium Chloride IV 05/08/24 16:11 42 mls/hr X1 ONE Administration Sodium Chloride 250 mls @ 15 mls/hr 05/08/24 10:01 05/08/24 10:16 IV 0 mls/hr .[id number] PRN Infusion Additional IVPB Infusion Sodium Chloride 250 mls @ 15 mls/hr 05/08/24 10:01 05/08/24 10:36 IV 0 mls/hr .[id number] PRN Infusion Saline Flush Nifedipine 30 mg 05/08/24 10:00 05/08/24 11:00 Nifedipine 30 Mg Tablet PO Not Given DAILY YADIEL Protocol Sodium Chloride 10 - 40 ml 05/07/24 15:26 05/08/24 09:07 0.9% Saline Lock 10 Ml Syringe IV 40 ml UD PRN Administration SALINE FLUSH Thiamine HCl 100 mg 05/08/24 08:00 05/08/24 09:00 Thiamine Hydrochloride 100 Mg Tablet PO Not Given DAILY YADIEL
[2024-05-08 14:01] LABS: White Blood Count 25.4 K/mm3 (4.4-11.0)
--- NOTE | 2024-05-08 14:05 | MRI_ITS ---
We are attempting to reach an attending provider to discuss findings. An addendum with communication details will be sent when the communication is complete. STUDY: MRI BRAIN WITH AND WITHOUT CONTRAST REASON FOR EXAM: Female, 63 years old. Acute encephalopathy TECHNIQUE: Multiplanar multisequence imaging of the brain was performed without and following the administration of intravenous contrast. COMPARISON: None. FINDINGS: The ventricles, cisterns, and sulci are within normal limits for patients age. Scattered small foci of acute diffusion restriction abnormality in the high right frontoparietal white matter. No succeptibility artifict to suggest intracranial hemorrhage or mineralization. Major intracranial signal voids are preserved. There is no midline shift, mass effect, or extra axial fluid collections are seen. No CP angle or IAC mass is seen. The orbits are unremarkable. The sella turcica and craniovertebral junction are within normal limits. The visualized paranasal sinuses are clear. The mastoid air cells are clear. No abnormal enhancement is seen. MRI/Brain W/WO Contrast IMPRESSION: Multiple scattered foci of acute ischemia in the high right frontoparietal white matter. No abnormal enhancing lesion. Electronically Signed: Hawk Ayon MD at 20:29 EDT ,
[2024-05-08 17:11] LABS: Bedside Glucose 98 mg/dL (74-106)
[2024-05-08] MEDS: LORazepam 2 MG/ML Syringe 0.5 MG IV (17:19)
[2024-05-09] VITALS (30 sets, daily range): BP systolic 92–157; BP diastolic 73–105; PULSE 96–110; RESP 12–38; TEMP 36.4–36.8; O2SAT 91–99; BMI 15.0
[2024-05-09 03:52] LABS: Absolute Lymphocyte Count 0.32 X10^3/uL (0.83-4.51); Absolute Neutrophil Count 20.9 X10^3/uL (2.0-7.7); Basophil# 0.14 X10^3/uL; Basophil% 0.6 % (0-1); Hematocrit 30.6 % (37-47); Hemoglobin 10.6 g/dL (12.0-15.0); Lymphocyte # 0.32 X10^3/ul (0.83-4.51); Lymphocyte % 1.4 % (19-41); Mean Corp Hgb Conc 34.6 g/dL (32-36); Mean Corpuscular Hgb 33.1 pg (27.0-32.0); Mean Corpuscular Volume 95.6 fL (81-99); Monocyte# 0.72 X10^3/uL; Monocyte% 3.2 % (0-10); NRBC Flagged by Analyzer 0 % (0-5); Neutrophil # 20.87 X10^3/uL (2.7-7.7); Neutrophil % 92.3 % (47-70); POSITIVE COUNT YES; POSITIVE DIFFERENTIAL YES; POSITIVE MORPHOLOGY YES; RBC Distribution Width CV 13.4 % (11.6-14.6); RBC Distribution Width SD 47.7 fl (35.1-43.9); White Blood Count 22.6 K/mm3 (4.4-11.0)
[2024-05-09 04:07] LABS: Differential Indicated SCAN CRITERIA MET; Platelet Count 16 K/mm3 (150-450)
[2024-05-09 04:12] LABS: ALB/GLOB Ratio 0.5 RATIO (0.9-2.4); AST(SGOT) 187 U/L (15-37); Alanine Aminotransfer ALT/SGPT 57 U/L (13-56); Albumin, Serum 1.6 g/dL (3.2-5.0); Alkaline Phosphatase 131 U/L (45-117); Anion Gap 11 (5-15); BUN 23 mg/dL (7-18); BUN/Creat Ratio 49.4 RATIO (10-20); Calcium,Total 7.5 mg/dL (8.5-10.1); Chloride 115 mmol/L (98-107); Creatinine, Serum 0.47 mg/dL (0.55-1.02); EST Glomerular Filtration Rate 143 mL/min (>60); Est Glom Filt Rate - Afr Amer 173 mL/min (>60); Estimated Creatinine Clearance 63.44 ml/min; Globulin 3.4 g/dL (2.2-4.2); Glucose 107 mg/dL (74-106); Potassium 2.5 mmol/L (3.5-5.1); Sodium Level 146 mmol/L (136-145)
[2024-05-09 04:39] LABS: Differential Comment SCANNED; Platelet Estimate MKD DEC (ADEQ)
[2024-05-09] MEDS: Potassium Chloride 10mEq/100mL 10 MEQ/100 ML IV.SOLN. 100 MEQ IV BOLUS ×8 (04:53→14:39)
--- NOTE | 2024-05-09 06:48 | PN.CC_ITS ---
Assessment & Plan Assessment/Plan (1) Altered mental status: (2) Pneumonia: (3) B-cell lymphoma: PLAN: Plan RECOMMENDATIONS: 1. Initiate assist-control mode mechanical ventilation. Wean FiO2 and PEEP for saturations greater than 90%. 2. Obtain postintubation ABG and sputum culture. 3. Continue bronchodilator therapy. 4. Check coags, D-dimer, fibrinogen and send PF4 antibody. 5. Continue to hold heparin containing products. 6. Awaiting further neurology evaluation and EEG results. 7. Plan to transfer to [facility] neuro intensive care unit. IMPRESSIONS: 1. Sepsis The patient presented with sepsis due to pneumococcal pneumonia with secondary bacteremia with acute sepsis related organ dysfunction as evidenced by altered mental status, thrombocytopenia and lactic acidemia. The patient was placed on appropriate antimicrobial therapy. She remains hemodynamically stable at the present time. Lactic acidemia has improved. 2. Acute respiratory failure The patient was ultimately intubated on the morning of May 09 over concerns for her ability to protect her airway, in light of worsening neurologic status. Will obtain postintubation ABG and sputum for culture. The patient will be maintained on assist-control mode of mechanical ventilation, with a goal to wean FiO2 and PEEP as tolerated. 3. Encephalopathy Unclear etiology. MRI brain did reveal several acute strokes. However, the patient remains obtunded this morning with clinical deterioration over the last 24 hours. EEG was completed. In light of the patient's clinical status, conversation was had with neurology at [facility] regarding transfer. The patient has been accepted and is awaiting bed assignment. 4. Anemia/thrombocytopenia Unclear etiology. However, sepsis, DIC and HIT are all possibilities. Will plan to check coagulation profile along with D-dimer and fibrinogen level. PF4 antibody will be sent. Continue current supportive measures for now. 5. History of COPD/history of left lower lobectomy for malignancy Continue scheduled bronchodilator therapy for now. 6. History of B-cell lymphoma/psoriasis/neuropathy/depression/anxiety/GERD/hyperlipidemia Complicates care, management, recovery and prognosis. Continue supportive measures as noted above. TIME: 45 minutes of critical care time, inclusive of procedures, was spent addressing the patient's sepsis, acute respiratory failure, encephalopathy, anemia, thrombocytopenia, review of all data and collaboration with care team. Subjective Subjective The patient was seen and examined at the bedside this morning. Events from the last 24 hours have been reviewed. The patient is currently afebrile, hemodynamically stable and maintaining appropriate oxygen saturations on room air. The patient is less responsive than yesterday and appears less restless. Her white count remains elevated at 22,000 with a platelet count of 16,000. Due to her thrombocytopenia, the patient's Lovenox was discontinued yesterday. Potassium is low this morning at 2.5. The patient was seen by neurology yesterday with MRI brain completed demonstrating multiple scattered foci of acute ischemia in the high right frontal parietal white matter. EEG is currently underway. In light of the patient's clinical deterioration, a call was placed to [facility] neurology regarding the feasibility of transfer. I did speak personally with [facility], who is excepting the patient in transfer, but would like the patient intubated for airway protection. Intubation Indication: Impending respiratory failure Consent was obtained from: Patient's The patient was placed in the appropriate sniffing position. Preoxygenated sedation via [id number] was provided for a minimum of 3 minutes. The patient had continuous cardiac as well as pulse oximetry monitoring during the procedure. Procedure sedation was provided by the administration of 50 mg of propofol. Direct laryngoscopy was then performed using a number 3 MAC blade, which revealed a grade 2 view. A 7.0 mm endotracheal tube was visualized advancing between the cords to the level of 22 cm at the lip. The stylette was then removed and discarded. Tube placement was confirmed by fogging in the tube along with equal and bilateral breath sounds. Colorimetric change was visualized on the CO2 meter. The cuff was then inflated and the tube secured using a commercially available device. A good pulse oximetry waveform was seen on the monitor throughout the procedure. A portable chest x-ray has been ordered to confirm appropriate placement. The patient tolerated the procedure well. Objective Data Objective Data The patient's most recent lab work, culture data and imaging studies have all been personally reviewed. COVID, influenza and RSV PCR's were negative. Blood cultures were positive for Streptococcus pneumonia. Vital Signs: Vital Signs Temp Pulse Resp BP Pulse Ox O2 Del Method O2 Flow Rate 97.8 F 107 H 33 H 146/101 H 92 Room Air 2 05/09/24 06:00 05/09/24 06:00 05/09/24 06:00 05/09/24 06:00 05/09/24 06:00 05/09/24 06:00 05/08/24 22:00 Oxygen Flow Rate (L/min) 2 Oxygen Delivery Method Room Air Weight: 74 lb 11.787 oz Body Mass Index (BMI) 15.0 Intake & Output: Intake and Output for Last 24 Hours 05/07/24 05/08/24 05/09/24 23:59 23:59 23:59 Intake Total 2505 / 2505 3748.84 / 3748.84 321 / 321 Output Total 650 / 650 1165 / 1515 600 / 600 Balance 1855 / 1855 2583.84 / 2233.84 -279 / -279 Medical Nutrition Assessment Dietitian: Malnutrition Criteria Met Start: 05/08/24 09:49 Freq: Status: Active Protocol: Document 05/08/24 09:49 BETINA (Rec: 05/08/24 09:49 BETINA [id number]) Nutrition Malnutrition Evidence of Malnutrition Exists Yes Malnutrition (severe): Chronic Evidenced By Suboptimal Energy Intake ( Severe),Weight Loss (Severe), Physical Changes (Severe) Clinical Problem Chronic Disease or Condition Related Malnutrition Etiology related to lung cancer and removal of LLL of lung and subsequent inadequate energy intake Signs/Symptoms as evidenced by 5% wt loss x several months, poor po intake w/ <75% of est nutritional intake and obvious fat loss/muscle depletion throughout body; BMI 14.6 Status Active Problem Recommendation Dietitian Recommendations/Changes As medically able, rec JOHNATHAN to liberal Regular w/ magic cup at lunch and dinner for increased nutrition if consumed As medically able, rec Ensure Plus High Protein 4x/day w/ medpass (prefers vanilla) for increased nutrition if consumed. Rec consider appetite stimulant to help encourage increased po intake. If NPO prolonged and/or continued poor po intake/wt loss - may wish to consider supplemental nutrition support to help prevent further decline in nutritional status if in accordance w/ pt/family wishes. Lab / Micro Data Attestation: I reviewed the patient's lab results. 05/09/24 03:25 05/09/24 03:25 Labs: Laboratory Results - last 24 hr 05/08/24 04:40: WBC 25.4 H, Sodium 140, Potassium 2.2 L*, Chloride 108 H, Carbon Dioxide 21.0, Anion Gap 11, BUN 27 H, Creatinine 0.62, Estim Creat Clear Calc 48.09, Est GFR (MDRD) Af Amer 124, Est GFR (MDRD) Non-Af 103, BUN/Creatinine Ratio 43.5 H, Glucose 115 H, Calcium 7.7 L, Phosphorus 2.0 L, Total Bilirubin 1.00, Direct Bilirubin 0.70 H, AST 180 H, ALT 48, Alkaline Phosphatase 111, T otal Protein 4.9 L, Albumin 1.7 L, Globulin 3.2, Albumin/Globulin Ratio 0.5 L, TSH 1.26 05/08/24 09:05: Total Bilirubin 1.00, Direct Bilirubin 0.70 H, AST 186 H, ALT 51, Alkaline Phosphatase 119 H, Ammonia < 10.0 L, Total Protein 4.9 L, Albumin 1.7 L, Globulin 3.2, TSH 1.28, Urine Opiates Screen NEGATIVE, Urine Methadone Screen NEGATIVE, Ur Barbiturates Screen NEGATIVE, Ur Phencyclidine Scrn NEGATIVE, Ur Amphetamines Screen NEGATIVE, MDMA (Ecstasy) Screen NEGATIVE, U Benzodiazepines Scrn NEGATIVE, Urine Cocaine Screen NEGATIVE, U Cannabinoids Screen NEGATIVE, Ur Drug Screen Comment , Blood Type A POSITIVE, Antibody Screen NEGATIVE 05/08/24 10:50: POC Glucose 98 05/08/24 16:25: Sodium Cancelled, Potassium Cancelled, Chloride Cancelled, Carbon Dioxide Cancelled, Anion Gap Cancelled, BUN Cancelled, Creatinine Cancelled, Estim Creat Clear Calc Cancelled, Est GFR (MDRD) Af Amer Cancelled, Est GFR (MDRD) Non-Af Cancelled, BUN/Creatinine Ratio Cancelled, Glucose Cancelled, Calcium Cancelled 05/08/24 16:52: POC Glucose 98 05/09/24 03:25: WBC 22.6 H, RBC 3.20 L, Hgb 10.6 L, Hct 30.6 L, MCV 95.6, MCH 33.1 H, MCHC 34.6, RDW Std Deviation 47.7 H, RDW Coeff of Timothy 13.4, Plt Count 16 L*, MPV TNP, Immature Gran % (Auto) 2.500 H, Neut % (Auto) 92.3 H, Lymph % (Auto) 1.4 L, Swain % (Auto) 3.2, Eos % (Auto) 0.0, Baso % (Auto) 0.6, Absolute Neuts (auto) 20.9 H, Absolute Lymphs (auto) 0.32 L, Nucleated RBC % 0, Differential Comment SCANNED, Diff Path Review May foll, Platelet Estimate MKD DEC, Sodium 146 H, Potassium 2.5 L*, Chloride 115 H, Carbon Dioxide 20.0 L, Anion Gap 11, BUN 23 H, Creatinine 0.47 L, Estim Creat Clear Calc 63.44, Est GFR (MDRD) Af Amer 173, Est GFR (MDRD) Non-Af 143, BUN/Creatinine Ratio 49.4 H, G lucose 107 H, Calcium 7.5 L, Total Bilirubin 1.00, AST 187 H, ALT 57 H, Alkaline Phosphatase 131 H, Total Protein 5.0 L, Albumin 1.6 L, Globulin 3.4, A lbumin/Globulin Ratio 0.5 L Micro: Microbiology 05/07/24 09:45 Urine Catheter - Raymond Urine Culture - Preliminary Mixed Gram Pos & Gram Neg Org 05/07/24 10:40 Blood Culture (Wb) - Right Hand Bacteria Detection (PCR) - Final Streptococcus pneumoniae 05/07/24 10:40 Blood Culture (Wb) - Right Hand Blood Culture - Preliminary 05/07/24 10:15 Blood Culture (Wb) - Left Hand Blood Culture - Preliminary 05/07/24 16:16 Mucosa - Nasopharyngeal SARS-CoV-2, Influenza & RSV (PCR) - Final ABG Data ABG results: ABG 05/07/24 05/07/24 05/07/24 10:12 16:21 23:18 Specimen Type ART ART ART Sample Site L Radial L Brach R Brach pH 7.50 H 7.46 H 7.44 Bicarbonate Actual 19.9 L 17.9 L 18.5 L Total CO2 21 19 19 Base Excess -3 L -6 L -6 L O2 Saturation 98 94 L 95 O2 % 6.0 2.0 1.0 ABG pCO2 25.8 L 25.4 L 27.3 L ABG pO2 101 H 64 L 72 L Yaniv Test Positive O2 Delivery Device Cannula Cannula Cannula Vent Mode Not entered Not entered Not entered Radiography Diagnostic Testing: Radiology Impression Echocardiogram 05/07/24 18:25 Interpretation Summary Normal LV size. Left ventricular systolic function is normal. The estimated ejection fraction is 60 %. Stage 1 diastolic dysfunction. Pulmonary artery systolic pressure is 45 mmHg. Small pericardial effusion. Ordering Physician: Natalie Crawford Performed By: Guzman Martin RCS Brain MRI 05/08/24 14:05 IMPRESSION: Multiple scattered foci of acute ischemia in the high right frontoparietal white matter. No abnormal enhancing lesion. Electronically Signed: Hawk Ayon MD at 20:29 EDT , ADDENDUM: 05/08/24 2130 IMPRESSION: Multiple scattered foci of acute ischemia in the high right frontoparietal white matter. No abnormal enhancing lesion. N.B. : The above Results were Read Back by Hawk Ayon MD to Buster Muir MD, and understanding confirmed on 05/08/2024 21:23:58 (ET). Electronically Signed: Hawk Ayon MD at 20:29 EDT , Physical Exam Const Constitutional Narrative: Frail and cachectic in appearance. The patient is obtunded and virtually nonresponsive to noxious stimulation. HEENT normocephalic and head/scalp atraumatic Eyes PERRL and conjunctivae normal Neck supple General: trachea midline Chest inspection of chest normal Resp Effort and Inspection: tachypneic Auscultation: diminished lung sounds Cardio S1 normal heart sound and S2 normal heart sound Rate: tachycardic GI normal to inspection, nondistended, normoactive bowel sounds Extremity no clubbing, cyanosis or edema Skin no rashes or lesions noted Neuro Neuro Narrative: Obtunded. Psych Mood & Affect: flat affect Charges/Coding Procedures Hospitalists Procedures: 90404 Critical Care 1st Hr
[2024-05-09 07:13] LABS: Magnesium 1.5 mg/dL (1.6-2.6); Phosphorus 2.5 mg/dL (2.5-4.9)
[2024-05-09 07:43] LABS: Allen Test Positive; Base Excess -9 mmol/L (-2 to +2); Bicarbonate 15.4 mmol/L (22-26); Blood Gas Specimen Type ART; Mode Not entered; O2 Delivery Device Room Air; PO2 70 mmHG (75-100); SITE L Radial; SO2 95 % (95-99); Total Carbon Dioxide 16 mmol/L; pCO2 22.2 mmHg (35-45); pH 7.45 (7.35-7.45)
--- NOTE | 2024-05-09 09:38 | CASEMGMT ---
Insurance review for hospitals In-network with [facility] insurance if transfer is recommended is as follows: [facility], [facility], [facility], [facility], [facility], [facility], [facility] ([facility]), [facility], and . Loren Acosta, Discharge Planning Asst.
[2024-05-09 09:39] LABS: LDH 444 U/L (84-246)
[2024-05-09] MEDS: Succinylcholine Chloride 200 MG/10 ML SYRINGE 100 MG IV (09:45)
[2024-05-09] MEDS: Propofol 10MG/Ml 1,000 MG/100 ML Bottle 2 MG CONT INF (09:45)
[2024-05-09] MEDS: fentaNYL drip 100 ML 5 MCG CONT INF (09:45)
--- NOTE | 2024-05-09 09:50 | NURSING ---
Dr Montes at bedside. Respiratory rate remains upper 30's to 40's, patient is unresponsive except for minnor withdrawl from deep painful stimuli. Patient does still have a cough and gag reflex at this time. Decision made to intubate the patient to better protect her airway and stabilize her further in preparation to transfer to [facility] for ongoing Neurology care. Patient intubated at [address] Montes with #7 ETT, 21 cm at the lip. NG tube inserted in R nare without complication. Procedure was completed without complication. STAT portable x-ray ordered to verify placement of ETT.
[2024-05-09 09:52] LABS: International Normalized Ratio 1.1; Partial Thromboplast Time 27.3 Seconds (24.1-36.2); Prothrombin Time (Protime)PT. 14.6 SECONDS (11.7-14.9)
--- NOTE | 2024-05-09 09:55 | RAD_ITS ---
STUDY: X-RAY CHEST REASON FOR EXAM: Female, 63 years old. et tube placement TECHNIQUE: Single AP portable view of the chest. COMPARISON: Comparison is made with prior study dated May 07, 2024. FINDINGS: An endotracheal tube has been placed. The tip is at 2.9 cm proximal to the julianne. An orogastric tube is seen with the tip in the body of the stomach. EKG electrodes are seen. Persistent lingular infiltration and left lower lobe infiltration with blunting of the left costophrenic angle. Blunting of the right costophrenic angle. There is borderline cardiomegaly. Normal mediastinum and boom. Normal visualized pulmonary arteries. There is atherosclerotic calcification of the aortic arch with tortuosity. Normal visualized thoracic spine. Normal visualized ribs, clavicles, and shoulders. There is no demonstrated abnormality of the visualized soft tissue structures of the upper abdomen. RAD/Chest 1 View (Portable) IMPRESSION: The tip of the endotracheal tube is at 2.9 cm proximal to the julianne. The tip of the orogastric tube is in the body of the stomach. Persistent lingular and left lower lobe infiltrates although there has been improvement as compared to prior study. Electronically Signed: Martín Richardson MD at 10:11 EDT ,
[2024-05-09] MEDS: 0.9% Normal Saline (1000mL) 1,000 ML 100 ML IV ×2 (10:12→20:28)
[2024-05-09 10:23] LABS: Fibrinogen 621 mg/dl (203-444)
[2024-05-09 11:17] LABS: CPK Total, Creatine Kinase 423 U/L (26-192); Triglycerides 136 mg/dL
[2024-05-09] MEDS: Propofol 200 MG/20 ML Vial 50 MG IV BOLUS (11:27)
[2024-05-09] MEDS: Pantoprazole Sodium 40 MG in 0.9% Normal Saline (100mL MB+) 100 ML 330 MG IV (11:30)
[2024-05-09 12:02] LABS: Pathologist Review Reviewed
[2024-05-09 12:04] LABS: Pathologist Review Reviewed
[2024-05-09] MEDS: Ceftriaxone 2 GM in 0.9% Normal Saline (50mL MB+) 50 ML IV (12:08)
[2024-05-09 12:35] LABS: International Normalized Ratio 1.3; Prothrombin Time (Protime)PT. 16.2 SECONDS (11.7-14.9)
[2024-05-09 12:40] LABS: Fibrinogen > 900 mg/dl (203-444)
[2024-05-09] MEDS: Ipratropium/Albuterol Sulfate 3 ML AMPUL.NEB INHALATION ×2 (13:20→18:34)
--- NOTE | 2024-05-09 14:59 | CHAPLAIN ---
Type of Pastoral Visit _x__ Initial Visit ___ Follow-up Visit ___ On-call Visit ___ General Patient Visit ___ Spiritual Assessment ___ Family Conference ___ Bereavement ___ Rapid Response ___ Code Blue ___ Other (describe below) Pastoral Care Referral From ___ Patient ___ Family _x__ Nurse ___ Physician ___ Log Loader ___ Press Catcher ___ Other (describe below) Sacrament/Intervention _x__ Active listening ___ Anointing ___ Episcopalian ___ Bereavement ___ Communion _x__ Yarely exploration ___ ___ Life review _x__ Prayer ___ Reconciliation ___ Sacrament of Sick _x__ Supportive presence ___ Wedding ___ Other (describe below) Pastoral Comments On recommendation of RN and the acceptance of spouse, this bulk materials handling plant operator went to visit with spouse and son in the patient's room; pt is currently sedated and vented; spouse is at bedside and is holding hand of his and looks at her continuously throughout the visit; son stands to acknowledge this bulk materials handling plant operator, 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
--- NOTE | 2024-05-09 16:01 | PN_ITS ---
Subjective Subjective Patient seen and examined. She remains very obtunded and minimally responsive. She had the MRI of the brain done yesterday which showed evidence of multiple foci of ischemia in the right frontoparietal area. Platelets have dropped further to 16,000 today. Unable to do review of systems. Though she is on room air she remains tachypneic and tachycardic. WBC remains elevated at 22.6. I did discuss with Dr. Robb her oncologist today about hip for the platelet drop and he advised that we order coagulation panel due to concern about DIC. Objective Data Objective Data Vital Signs: Vital Signs Temp Pulse Resp BP Pulse Ox O2 Del Method O2 Flow Rate 97.9 F 103 H 22 H 109/76 97 Mechanical Ventilator 2 05/09/24 12:00 05/09/24 15:00 05/09/24 15:00 05/09/24 15:00 05/09/24 15:00 05/09/24 15:57 05/09/24 09:00 FiO2 30 05/09/24 15:57 Oxygen Flow Rate (L/min) 2 Oxygen Delivery Method Mechanical Ventilator Weight: 74 lb 11.787 oz Body Mass Index (BMI) 15.0 Intake & Output: Intake and Output for Last 24 Hours 05/07/24 05/08/24 05/09/24 23:59 23:59 23:59 Intake Total 2505 / 2505 3748.84 / 3748.84 2417.75 / 2417.75 Output Total 650 / 650 1165 / 1515 1058 / 1058 Balance 1855 / 1855 2583.84 / 2233.84 1359.75 / 1359.75 Medical Nutrition Assessment Dietitian: Malnutrition Criteria Met Start: 05/08/24 09:49 Freq: Status: Active Protocol: Document 05/08/24 09:49 BETINA (Rec: 05/08/24 09:49 BETINA [id number]) Nutrition Malnutrition Evidence of Malnutrition Exists Yes Malnutrition (severe): Chronic Evidenced By Suboptimal Energy Intake ( Severe),Weight Loss (Severe), Physical Changes (Severe) Clinical Problem Chronic Disease or Condition Related Malnutrition Etiology related to lung cancer and removal of LLL of lung and subsequent inadequate energy intake Signs/Symptoms as evidenced by 5% wt loss x several months, poor po intake w/ <75% of est nutritional intake and obvious fat loss/muscle depletion throughout body; BMI 14.6 Status Active Problem Recommendation Dietitian Recommendations/Changes As medically able, rec JOHNATHAN to liberal Regular w/ magic cup at lunch and dinner for increased nutrition if consumed As medically able, rec Ensure Plus High Protein 4x/day w/ medpass (prefers vanilla) for increased nutrition if consumed. Rec consider appetite stimulant to help encourage increased po intake. If NPO prolonged and/or continued poor po intake/wt loss - may wish to consider supplemental nutrition support to help prevent further decline in nutritional status if in accordance w/ pt/family wishes. Lab / Micro Data 05/09/24 03:25 05/09/24 03:25 Labs: Laboratory Results - last 24 hr 05/08/24 04:40: Diff Path Review Reviewed 05/08/24 16:25: Sodium Cancelled, Potassium Cancelled, Chloride Cancelled, Carbon Dioxide Cancelled, Anion Gap Cancelled, BUN Cancelled, Creatinine Cancelled, Estim Creat Clear Calc Cancelled, Est GFR (MDRD) Af Amer Cancelled, Est GFR (MDRD) Non-Af Cancelled, BUN/Creatinine Ratio Cancelled, Glucose Cancelled, Calcium Cancelled 05/08/24 16:52: POC Glucose 98 05/09/24 03:25: WBC 22.6 H, RBC 3.20 L, Hgb 10.6 L, Hct 30.6 L, MCV 95.6, MCH 33.1 H, MCHC 34.6, RDW Std Deviation 47.7 H, RDW Coeff of Timothy 13.4, Plt Count 16 L*, MPV TNP, Immature Gran % (Auto) 2.500 H, Neut % (Auto) 92.3 H, Lymph % (Auto) 1.4 L, Carlton % (Auto) 3.2, Eos % (Auto) 0.0, Baso % (Auto) 0.6, Absolute Neuts (auto) 20.9 H, Absolute Lymphs (auto) 0.32 L, Nucleated RBC % 0, Differential Comment SCANNED, Diff Path Review Reviewed, Platelet Estimate MKD DEC, Sodium 146 H, Potassium 2.5 L*, Chloride 115 H, Carbon Dioxide 20.0 L, Anion Gap 11, BUN 23 H, Creatinine 0.47 L, Estim Creat Clear Calc 63.44, Est GFR (MDRD) Af Amer 173, Est GFR (MDRD) Non-Af 143, BUN/Creatinine Ratio 49.4 H, G lucose 107 H, Calcium 7.5 L, Phosphorus 2.5, Magnesium 1.5 L, Total Bilirubin 1.00, AST 187 H, ALT 57 H, Alkaline Phosphatase 131 H, Lactate Dehydrogenase 444 H, Total Creatine Kinase 423 H, Total Protein 5.0 L, Albumin 1.6 L, Globulin 3.4, Albumin/Globulin Ratio 0.5 L, Triglycerides 136 05/09/24 09:00: PT 14.6, INR 1.1, APTT 27.3, Fibrinogen 621 H 05/09/24 12:15: PT 16.2 H, INR 1.3, APTT 34.0, Fibrinogen > 900 H, D-Dimer Quant (PE/DVT) 16.30 H* Micro: Microbiology 05/07/24 10:15 Blood Culture (Wb) - Left Hand Blood Culture - Preliminary Alpha hemolytic organism 05/07/24 10:40 Blood Culture (Wb) - Right Hand Bacteria Detection (PCR) - Final Streptococcus pneumoniae 05/07/24 10:40 Blood Culture (Wb) - Right Hand Blood Culture - Preliminary Streptococcus pneumoniae 05/07/24 09:45 Urine Catheter - Raymond Urine Culture - Preliminary Mixed Gram Pos & Gram Neg Org 05/07/24 16:16 Mucosa - Nasopharyngeal SARS-CoV-2, Influenza & RSV (PCR) - Final ABG Data ABG results: ABG 05/09/24 07:33 Specimen Type ART Sample Site L Radial pH 7.45 Bicarbonate Actual 15.4 L Total CO2 16 Base Excess -9 L O2 Saturation 95 O2 % 21.0 ABG pCO2 22.2 L ABG pO2 70 L Yaniv Test Positive O2 Delivery Device Room Air Vent Mode Not entered Radiography Diagnostic Testing: Radiology Impression Brain MRI 05/08/24 14:05 IMPRESSION: Multiple scattered foci of acute ischemia in the high right frontoparietal white matter. No abnormal enhancing lesion. Electronically Signed: Hawk Ayon MD at 20:29 EDT , ADDENDUM: 05/08/242129 IMPRESSION: Multiple scattered foci of acute ischemia in the high right frontoparietal white matter. No abnormal enhancing lesion. N.B. : The above Results were Read Back by Hawk Ayon MD to Buster Muir MD, and understanding confirmed on 05/08/2024 21:23:58 (ET). Electronically Signed: Hawk Ayon MD at 20:29 EDT , Chest X-Ray 05/09/24 09:55 IMPRESSION: The tip of the endotracheal tube is at 2.9 cm proximal to the julianne. The tip of the orogastric tube is in the body of the stomach. Persistent lingular and left lower lobe infiltrates although there has been improvement as compared to prior study. Electronically Signed: Martín Richardson MD at 10:11 EDT , Physical Exam Const Negative for alert, oriented x3, no apparent distress, average body habitus, healthy appearing or well nourished Constitutional Narrative: patient very frail, cachectic, very lethargic, minimally responsive HEENT normocephalic and head/scalp atraumatic Mouth: dry mucous membranes Eyes PERRL and EOMs intact bilaterally Neck no lymphadenopathy and supple Lymph Lymphatic: no lymphadenopathy noted and no lymphedema noted Resp Resp Narrative: mildly diminished breath sounds bibasally, no wheezes or crackles. tachypneic Cardio regular rhythm, S1 normal heart sound and S2 normal heart sound; Negative for regular rate Cardio Narrative: tachypneic GI normal to inspection, nondistended, normoactive bowel sounds, soft to palpation, non-tender and non-distended Extremity normal to inspection, normal capillary refill and no clubbing, cyanosis or edema General Extremity: no tenderness to palpation of joints or extremities Skin Skin Narrative: has ecchymotic patches over her upper extremities which are chronic, per and daughter. Neuro No oriented x3 Neuro Narrative: lethargic, minimally responsive, Motor Exam: general weakness Assessment & Plan Assessment/Plan (1) Altered mental status: (2) Severe sepsis: (3) Pneumonia: PLAN: Plan #Acute encephalopathy * etiology is likely due to severe sepsis from pneumonia as well as acute CVA * She remains very lethargic and minimally responsive. * MRI of the brain showed multiple scattered foci of acute ischemia in the high right frontoparietal white matter, with no abnormal enhancing ischemia * blood cultures growing Strep pneumoniae. Potassium is also low at 2.2. * On IV ceftriaxone and azithromycin * was hydrated with IVF per sepsis protocol * CT of the brain on admission showed no acute intracranial pathology. * critical care on board * EEG done and read is pending. * Patient's clinical deterioration and MRI findings discussed with Dr. Mariely Shah of [facility] neurology today as well as with Dr. Montes take away attendant. Decision made to transfer patient emergently to neuro ICU at [facility]. Patient accepted and pending bed availability. * #Acute hypoxic respiratory failure * Likely due to sepsis from pneumonia. Patient was tachypneic and tachycardic. Patient was electively intubated today due to concerns that patient will tire out from her increased work of breathing. * Currently intubated and sedated * On IV ceftriaxone and azithromycin. Blood cultures positive for strep pneumonia. Critical care on board. * #Sepsis due to pneumococcal pneumonia: as above. wbc has trended down slightly to 22 today. #THrombocytopenia * Platelets dropped further to 16 from 41 yesterday. Still has the ecchymotic patches which have not worsened. * Discussed with patient's oncologist Dr. Ann who stated that he is concerned about DIC and recommended that we order coagulation panel. I did speak to lab who reviewed the slides again and saw no evidence of schistocytes. * INR is 1.3. Fibrinogen has increased to more than 900 and D-dimer is also elevated at 16.3. * CTA chest done 2 days ago showed no evidence of PE * Will hold off on hematology consult now as patient is being transferred to [facility]. * #History of B cell lymphoma * in remission now, according to and daughter. * * #Hypokalemia and hypomagnesemia: K is 2.5 today. Will replace aggressively and trend. Magnesium is 1.5. Will also replace and trend. #Pericardial effusion: * as per CT. 2D echo showed EF of 60% with normal left ventricular systolic function and stage I diastolic dysfunction with pulmonary artery systolic pressure 45 mmHg and small pericardiac effusion. #History of chronic alcohol abuse: * Patient's oncologist informed me that patient has a history of chronic alcohol abuse. This may be contributing to her hypokalemia and hypomagnesemia as well. * at risk of alcohol withdrawal. #History of COPD: not in exacerbation. Breathing treatments with bronchodilators. #History of left lower lobectomy: for cancer. stable. #Depression: on duloxetine #Hypertension: on nifedipine 30mg XR daily. #GERD: on PPI #Hyperlipidemia: on statin. DVT prophylaxis: SCDs Disposition: Awaiting transfer to [facility] pending bed availability. Charges/Coding Visit Charges Inpatient E&M: 76496 Subs Hosp L3
--- NOTE | 2024-05-09 17:32 | STROKE.PNOTE ---
Objective Data Objective Data Vital Signs: Vital Signs Temp Pulse Resp BP Pulse Ox O2 Del Method O2 Flow Rate 97.9 F 96 17 102/80 97 Mechanical Ventilator 2 05/09/24 12:00 05/09/24 16:26 05/09/24 16:26 05/09/24 16:00 05/09/24 16:26 05/09/24 16:00 05/09/24 09:00 FiO2 30 05/09/24 16:26 Oxygen Flow Rate (L/min) 2 Oxygen Delivery Method Mechanical Ventilator Weight: 33.9 kg Body Mass Index (BMI) 15.0 Intake & Output: Intake and Output for Last 24 Hours 05/07/24 05/08/24 05/09/24 23:59 23:59 23:59 Intake Total 2505 / 2505 3748.84 / 3748.84 2431.75 / 2431.75 Output Total 650 / 650 1165 / 1515 1058 / 1058 Balance 1855 / 1855 2583.84 / 2233.84 1373.75 / 1373.75 Medical Nutrition Assessment Dietitian: Malnutrition Criteria Met Start: 05/08/24 09:49 Freq: Status: Active Protocol: Document 05/08/24 09:49 BETINA (Rec: 05/08/24 09:49 SLA [id number]) Nutrition Malnutrition Evidence of Malnutrition Exists Yes Malnutrition (severe): Chronic Evidenced By Suboptimal Energy Intake ( Severe),Weight Loss (Severe), Physical Changes (Severe) Clinical Problem Chronic Disease or Condition Related Malnutrition Etiology related to lung cancer and removal of LLL of lung and subsequent inadequate energy intake Signs/Symptoms as evidenced by 5% wt loss x several months, poor po intake w/ <75% of est nutritional intake and obvious fat loss/muscle depletion throughout body; BMI 14.6 Status Active Problem Recommendation Dietitian Recommendations/Changes As medically able, rec JOHNATHAN to liberal Regular w/ magic cup at lunch and dinner for increased nutrition if consumed As medically able, rec Ensure Plus High Protein 4x/day w/ medpass (prefers vanilla) for increased nutrition if consumed. Rec consider appetite stimulant to help encourage increased po intake. If NPO prolonged and/or continued poor po intake/wt loss - may wish to consider supplemental nutrition support to help prevent further decline in nutritional status if in accordance w/ pt/family wishes. Lab / Micro Data 05/09/24 03:25 05/09/24 03:25 Labs: Laboratory Results - last 24 hr 05/08/24 04:40: Diff Path Review Reviewed 05/09/24 03:25: WBC 22.6 H, RBC 3.20 L, Hgb 10.6 L, Hct 30.6 L, MCV 95.6, MCH 33.1 H, MCHC 34.6, RDW Std Deviation 47.7 H, RDW Coeff of Timothy 13.4, Plt Count 16 L*, MPV TNP, Immature Gran % (Auto) 2.500 H, Neut % (Auto) 92.3 H, Lymph % (Auto) 1.4 L, [place] % (Auto) 3.2, Eos % (Auto) 0.0, Baso % (Auto) 0.6, Absolute Neuts (auto) 20.9 H, Absolute Lymphs (auto) 0.32 L, Nucleated RBC % 0, Differential Comment SCANNED, Diff Path Review Reviewed, Platelet Estimate MKD DEC, Sodium 146 H, Potassium 2.5 L*, Chloride 115 H, Carbon Dioxide 20.0 L, Anion Gap 11, BUN 23 H, Creatinine 0.47 L, Estim Creat Clear Calc 63.44, Est GFR (MDRD) Af Amer 173, Est GFR (MDRD) Non-Af 143, BUN/Creatinine Ratio 49.4 H, Glucose 107 H, Calcium 7.5 L, Phosphorus 2.5, Magnesium 1.5 L, Total Bilirubin 1.00, AST 187 H, ALT 57 H, Alkaline Phosphatase 131 H, Lactate Dehydrogenase 444 H, Total Creatine Kinase 423 H, Total Protein 5.0 L, Albumin 1.6 L, Globulin 3.4, Albumin/Globulin Ratio 0.5 L, Triglycerides 136 05/09/24 09:00: PT 14.6, INR 1.1, APTT 27.3, Fibrinogen 621 H 05/09/24 12:15: PT 16.2 H, INR 1.3, APTT 34.0, Fibrinogen > 900 H, D-Dimer Quant (PE/DVT) 16.30 H* Micro: Microbiology 05/07/24 10:15 Blood Culture (Wb) - Left Hand Blood Culture - Preliminary Alpha hemolytic organism 05/07/24 10:40 Blood Culture (Wb) - Right Hand Bacteria Detection (PCR) - Final Streptococcus pneumoniae 05/07/24 10:40 Blood Culture (Wb) - Right Hand Blood Culture - Preliminary Streptococcus pneumoniae 05/07/24 09:45 Urine Catheter - Raymond Urine Culture - Preliminary Mixed Gram Pos & Gram Neg Org 05/07/24 16:16 Mucosa - Nasopharyngeal SARS-CoV-2, Influenza & RSV (PCR) - Final ABG Data ABG results: ABG 05/09/24 07:33 Specimen Type ART Sample Site L Radial pH 7.45 Bicarbonate Actual 15.4 L Total CO2 16 Base Excess -9 L O2 Saturation 95 O2 % 21.0 ABG pCO2 22.2 L ABG pO2 70 L Yaniv Test Positive O2 Delivery Device Room Air Vent Mode Not entered Radiography Diagnostic Testing: Radiology Impression Brain MRI 05/08/24 14:05 IMPRESSION: Multiple scattered foci of acute ischemia in the high right frontoparietal white matter. No abnormal enhancing lesion. Electronically Signed: Hawk Ayon MD at 20:29 EDT , ADDENDUM: 05/08/24 2130 IMPRESSION: Multiple scattered foci of acute ischemia in the high right frontoparietal white matter. No abnormal enhancing lesion. N.B. : The above Results were Read Back by Hawk Ayon MD to Buster Muir MD, and understanding confirmed on 05/08/2024 21:23:58 (ET). Electronically Signed: Hawk Ayon MD at 20:29 EDT , Chest X-Ray 05/09/24 09:55 IMPRESSION: The tip of the endotracheal tube is at 2.9 cm proximal to the julianne. The tip of the orogastric tube is in the body of the stomach. Persistent lingular and left lower lobe infiltrates although there has been improvement as compared to prior study. Electronically Signed: Martín Richardson MD at 10:11 EDT , Physical Exam Neuro Neuro Narrative: Sedated, intubated Not Following commands Intact brain stem reflexes Trace response to pain per nursing team Subject: Neurology Subjective ROBERTA SCHMIDT is a 63 F with a history of of B-cell lymphoma first diagnosed 7 years ago s/p R-CHOP with recent relapse 2022 s/p left lower lobe resection and chemotherapy (unclear which type). She presented to [facility] on 05/07/2024 for altered mental status. She was found to be bacteremic with left lower lobe pneumonia as source. Blood cultures positive for strep pneumonia. She has ongoing encephalopathy and was intubated. MRI shows stroke in R Frontoparietal region Assessment and Plan: Stroke Assessment/Plan ROBERTA SCHMIDT is a 63 F with a history of of B-cell lymphoma first diagnosed 7 years ago s/p R-CHOP with recent relapse 2022 s/p left lower lobe resection and chemotherapy (unclear which type). She presented to [facility] on 05/07/2024 for altered mental status. She was found to be bacteremic with left lower lobe pneumonia as source. Blood cultures positive for strep pneumonia. She has ongoing encephalopathy and was intubated. MRI shows stroke in R Frontoparietal region. Also noticed to have thrombocytopenia, sepsis. Neurological examination shows encephalopathy, sedated, intubated, not following commands trace response to pain in all extremities. Neuroimaging shows Right frontoparietal stroke. Unclear etiology of stroke. ECHO: EF okay. From stroke stand point will need 1. CTA head and neck when able 2. HbA1C, Fasting lipid profile 3. F/up on repeat Bcx to determine if bacteremic 4. Hold AP given thrombocytopenia. Resume once able 5. Routine EEG 6. Serial neurochecks 7. Avoid hypotension Awaiting transfer to [facility] Thanks for the consult. Spent 35 min in evaluation and management of this patient.
[2024-05-09 17:47] LABS: Bedside Glucose 115 mg/dL (74-106)
[2024-05-09] MEDS: Chlorhexidine 15 ML PO (20:28)
[2024-05-09] MEDS: Atorvastatin Calcium 20 MG Tablet PO (20:29)
[2024-05-10] VITALS (35 sets, daily range): BP systolic 83–108; BP diastolic 61–77; PULSE 96–121; RESP 12–33; TEMP 36.3–36.8; O2SAT 95–100; BMI 16.5
[2024-05-10] MEDS: fentaNYL drip 100 ML 5 MCG CONT INF (00:29)
[2024-05-10] MEDS: Ipratropium/Albuterol Sulfate 3 ML AMPUL.NEB INHALATION ×4 (01:21→19:02)
[2024-05-10 03:42] LABS: Absolute Lymphocyte Count 0.57 X10^3/uL (0.83-4.51); Absolute Neutrophil Count 17.6 X10^3/uL (2.0-7.7); Basophil% 0.5 % (0-1); Hematocrit 29.6 % (37-47); Hemoglobin 9.9 g/dL (12.0-15.0); Lymphocyte # 0.57 X10^3/ul (0.83-4.51); Lymphocyte % 2.9 % (19-41); Mean Corp Hgb Conc 33.4 g/dL (32-36); Mean Corpuscular Hgb 32.8 pg (27.0-32.0); Monocyte# 1.08 X10^3/uL; Monocyte% 5.5 % (0-10); NRBC Flagged by Analyzer 0.1 % (0-5); Neutrophil % 89.4 % (47-70); POSITIVE COUNT YES; POSITIVE DIFFERENTIAL YES; POSITIVE MORPHOLOGY YES; RBC Distribution Width CV 14.1 % (11.6-14.6); RBC Distribution Width SD 50.7 fl (35.1-43.9); Red Blood Count 3.02 M/mm3 (4.2-5.4); White Blood Count 19.7 K/mm3 (4.4-11.0)
[2024-05-10 03:52] LABS: Differential Indicated SCAN CRITERIA MET; Platelet Count 14 K/mm3 (150-450)
[2024-05-10 03:57] LABS: ALB/GLOB Ratio 0.5 RATIO (0.9-2.4); AST(SGOT) 167 U/L (15-37); Alanine Aminotransfer ALT/SGPT 62 U/L (13-56); Albumin, Serum 1.5 g/dL (3.2-5.0); Alkaline Phosphatase 124 U/L (45-117); Anion Gap 8 (5-15); BUN 25 mg/dL (7-18); BUN/Creat Ratio 54.9 RATIO (10-20); Calcium,Total 7.4 mg/dL (8.5-10.1); Chloride 120 mmol/L (98-107); Creatinine, Serum 0.46 mg/dL (0.55-1.02); EST Glomerular Filtration Rate 147 mL/min (>60); Est Glom Filt Rate - Afr Amer 178 mL/min (>60); Estimated Creatinine Clearance 66.99 ml/min; Globulin 3.1 g/dL (2.2-4.2); Glucose 134 mg/dL (74-106); Potassium 3.3 mmol/L (3.5-5.1); Protein, Total 4.6 g/dL (6.4-8.2); Sodium Level 147 mmol/L (136-145)
[2024-05-10 04:47] LABS: Differential Comment SCANNED; Platelet Estimate MKD DEC (ADEQ)
[2024-05-10] MEDS: 0.9% Normal Saline (1000mL) 1,000 ML 100 ML IV ×2 (05:31→16:40)
[2024-05-10] MEDS: TITRATION PARAMETER CHANGE 1 EACH IV (05:51)
--- NOTE | 2024-05-10 07:09 | PN.CC_ITS ---
Assessment & Plan Assessment/Plan (1) Altered mental status: (2) Pneumonia: (3) B-cell lymphoma: PLAN: Plan RECOMMENDATIONS: 1. Continue assist-control mode mechanical ventilation. Wean FiO2 for saturations greater than 90%. 2. Obtain follow-up ABG this morning. 3. Continue bronchodilator therapy. 4. Awaiting results of the EEG and further recommendations by neurology. 5. Transfer to [facility] is pending. IMPRESSIONS: 1. Sepsis The patient presented with sepsis due to pneumococcal pneumonia with secondary bacteremia with acute sepsis related organ dysfunction as evidenced by altered mental status, thrombocytopenia and lactic acidemia. The patient was placed on appropriate antimicrobial therapy. She remains hemodynamically stable at the present time. Repeat blood cultures are currently pending. 2. Acute respiratory failure The patient was ultimately intubated on the morning of May 09 over concerns for her ability to protect her airway, in light of worsening neurologic status. The patient will be maintained on assist-control mode of mechanical ventilation, with a goal to wean FiO2 and PEEP as tolerated. 3. Encephalopathy Unclear etiology. MRI brain did reveal several acute strokes. EEG was completed with read pending. The patient is awaiting transfer to [facility] for further neurologic evaluation and management. 4. Anemia/thrombocytopenia Unclear etiology. However, sepsis, DIC and HIT are all possibilities. Continue current supportive measures for now. PF4 antibody screen was sent. 5. History of COPD/history of left lower lobectomy for malignancy Continue scheduled bronchodilator therapy for now. 6. History of B-cell lymphoma/psoriasis/neuropathy/depression/anxiety/GERD/hyperlipidemia Complicates care, management, recovery and prognosis. Continue supportive measures as noted above. TIME: 32 minutes of critical care time, inclusive of procedures, was spent addressing the patient's sepsis, acute respiratory failure, encephalopathy, anemia, thrombocytopenia, review of all data and collaboration with care team. Subjective Subjective The patient was seen and examined at the bedside this morning. Events from the last 24 hours have been reviewed. The patient is currently afebrile, hemodynamically stable and maintaining appropriate oxygen saturations on assist- control mode of mechanical ventilation with an FiO2 requirement of 40% and PEEP of 5. The patient is sedated on a combination of propofol and fentanyl. White count remains elevated at 20,000 with a hemoglobin of 9.9 g/dL and platelet count of 14,000. Potassium is low at 3.3. The patient is still awaiting transfer to [facility]. Objective Data Objective Data The patient's most recent lab work, culture data and imaging studies have all been personally reviewed. COVID, influenza and RSV PCR's were negative. Blood cultures were positive for Streptococcus pneumonia. Repeat blood cultures are pending. Vital Signs: Vital Signs Temp Pulse Resp BP Pulse Ox O2 Del Method O2 Flow Rate 97.8 F 100 20 H 92/67 97 Mechanical Ventilator 2 05/10/24 04:00 05/10/24 06:00 05/10/24 06:00 05/10/24 06:00 05/10/24 06:00 05/10/24 06:00 05/09/24 09:00 FiO2 40 05/10/24 06:00 Oxygen Flow Rate (L/min) 2 Oxygen Delivery Method Mechanical Ventilator Weight: 82 lb 0.191 oz Body Mass Index (BMI) 16.5 Intake & Output: Intake and Output for Last 24 Hours 05/08/24 05/09/24 05/10/24 23:59 23:59 23:59 Intake Total 3748.84 / 3748.84 3519.75 / 3556.75 1014.00 / 1014.00 Output Total 1165 / 1515 1608 / 1608 175 / 175 Balance 2583.84 / 2233.84 1911.75 / 1948.75 839.00 / 839.00 Medical Nutrition Assessment Dietitian: Malnutrition Criteria Met Start: 05/08/24 09:49 Freq: Status: Active Protocol: Document 05/08/24 09:49 BETINA (Rec: 05/08/24 09:49 BETINA [id number]) Nutrition Malnutrition Evidence of Malnutrition Exists Yes Malnutrition (severe): Chronic Evidenced By Suboptimal Energy Intake ( Severe),Weight Loss (Severe), Physical Changes (Severe) Clinical Problem Chronic Disease or Condition Related Malnutrition Etiology related to lung cancer and removal of LLL of lung and subsequent inadequate energy intake Signs/Symptoms as evidenced by 5% wt loss x several months, poor po intake w/ <75% of est nutritional intake and obvious fat loss/muscle depletion throughout body; BMI 14.6 Status Active Problem Recommendation Dietitian Recommendations/Changes As medically able, rec JOHNATHAN to liberal Regular w/ magic cup at lunch and dinner for increased nutrition if consumed As medically able, rec Ensure Plus High Protein 4x/day w/ medpass (prefers vanilla) for increased nutrition if consumed. Rec consider appetite stimulant to help encourage increased po intake. If NPO prolonged and/or continued poor po intake/wt loss - may wish to consider supplemental nutrition support to help prevent further decline in nutritional status if in accordance w/ pt/family wishes. Lab / Micro Data Attestation: I reviewed the patient's lab results. 05/10/24 03:15 05/10/24 03:15 Labs: Laboratory Results - last 24 hr 05/08/24 04:40: Diff Path Review Reviewed 05/09/24 03:25: Diff Path Review Reviewed, Phosphorus 2.5, Magnesium 1.5 L, L actate Dehydrogenase 444 H, Total Creatine Kinase 423 H, Triglycerides 136 05/09/24 09:00: PT 14.6, INR 1.1, APTT 27.3, Fibrinogen 621 H 05/09/24 12:15: PT 16.2 H, INR 1.3, APTT 34.0, Fibrinogen > 900 H, D-Dimer Quant (PE/DVT) 16.30 H* 05/09/24 17:29: POC Glucose 115 H 05/10/24 03:15: WBC 19.7 H, RBC 3.02 L, Hgb 9.9 L, Hct 29.6 L, MCV 98.0, MCH 32.8 H, MCHC 33.4, RDW Std Deviation 50.7 H, RDW Coeff of Timothy 14.1, Plt Count 14 L*, Immature Gran % (Auto) 1.700 H, Neut % (Auto) 89.4 H, Lymph % (Auto) 2.9 L, [place] % (Auto) 5.5, Eos % (Auto) 0.0, Baso % (Auto) 0.5, Absolute Neuts (auto) 17.6 H, Absolute Lymphs (auto) 0.57 L, Nucleated RBC % 0.1, Differential Comment SCANNED, Diff Path Review May foll, Platelet Estimate MKD DEC, Sodium 147 H, P otassium 3.3 L, Chloride 120 H, Carbon Dioxide 19.0 L, Anion Gap 8, BUN 25 H, C reatinine 0.46 L, Estim Creat Clear Calc 66.99, Est GFR (MDRD) Af Amer 178, Est GFR (MDRD) Non-Af 147, BUN/Creatinine Ratio 54.9 H, Glucose 134 H, Calcium 7.4 L , Total Bilirubin 1.10 H, AST 167 H, ALT 62 H, Alkaline Phosphatase 124 H, Total Protein 4.6 L, Albumin 1.5 L, Globulin 3.1, Albumin/Globulin Ratio 0.5 L Micro: Microbiology 05/07/24 10:15 Blood Culture (Wb) - Left Hand Blood Culture - Preliminary Alpha hemolytic organism 05/07/24 10:40 Blood Culture (Wb) - Right Hand Bacteria Detection (PCR) - Final Streptococcus pneumoniae 05/07/24 10:40 Blood Culture (Wb) - Right Hand Blood Culture - Preliminary Streptococcus pneumoniae 05/07/24 09:45 Urine Catheter - Raymond Urine Culture - Preliminary Mixed Gram Pos & Gram Neg Org 05/07/24 16:16 Mucosa - Nasopharyngeal SARS-CoV-2, Influenza & RSV (PCR) - Final ABG Data ABG results: ABG 05/09/24 07:33 Specimen Type ART Sample Site L Radial pH 7.45 Bicarbonate Actual 15.4 L Total CO2 16 Base Excess -9 L O2 Saturation 95 O2 % 21.0 ABG pCO2 22.2 L ABG pO2 70 L Yaniv Test Positive O2 Delivery Device Room Air Vent Mode Not entered Radiography Diagnostic Testing: Radiology Impression Chest X-Ray 05/09/24 09:55 IMPRESSION: The tip of the endotracheal tube is at 2.9 cm proximal to the julianne. The tip of the orogastric tube is in the body of the stomach. Persistent lingular and left lower lobe infiltrates although there has been improvement as compared to prior study. Electronically Signed: Martín Richardson MD at 10:11 EDT , Physical Exam Const Constitutional Narrative: Intubated and mechanically ventilated. Frail in appearance. HEENT normocephalic and head/scalp atraumatic Mouth: endotracheal tube in place Eyes PERRL and conjunctivae normal Neck supple General: trachea midline Chest inspection of chest normal Resp normal respiratory effort Auscultation: Negative for rales, rhonchi or wheezes Cardio regular rate and regular rhythm GI normal to inspection, nondistended, normoactive bowel sounds Extremity no clubbing, cyanosis or edema Skin no rashes or lesions noted Neuro Sensorium / Orientation: sedated on vent Charges/Coding Procedures Hospitalists Procedures: 78831 Critical Care 1st Hr
[2024-05-10 07:29] LABS: Allen Test Positive; Base Excess -9 mmol/L (-2 to +2); Bicarbonate 16.4 mmol/L (22-26); Blood Gas Specimen Type ART; Mode AC; O2 Delivery Device ET Tube; PEEP 5; PO2 117 mmHG (75-100); RR 12; SITE L Radial; SO2 99 % (95-99); Total Carbon Dioxide 17 mmol/L; pCO2 29.2 mmHg (35-45); pH 7.36 (7.35-7.45)
[2024-05-10] MEDS: Potassium Chloride 10mEq/100mL 10 MEQ/100 ML IV.SOLN. 100 MEQ IV BOLUS ×4 (07:53→11:11)
[2024-05-10] MEDS: Thiamine Hydrochloride 100 MG Tablet NG (08:08)
[2024-05-10] MEDS: Gabapentin 300 MG Capsule NG ×3 (08:11→17:13)
[2024-05-10] MEDS: Chlorhexidine 15 ML PO ×2 (08:14→21:58)
[2024-05-10] MEDS: Pantoprazole Sodium 40 MG in 0.9% Normal Saline (100mL MB+) 100 ML 330 MG IV (10:10)
[2024-05-10] MEDS: Propofol 10MG/Ml 1,000 MG/100 ML Bottle 2.2 MG CONT INF (10:11)
[2024-05-10] MEDS: Ceftriaxone 2 GM in 0.9% Normal Saline (50mL MB+) 50 ML IV (10:55)
[2024-05-10 12:01] LABS: Bedside Glucose 119 mg/dL (74-106)
--- NOTE | 2024-05-10 12:35 | STROKE.PNOTE ---
Objective Data Objective Data Vital Signs: Vital Signs Temp Pulse Resp BP Pulse Ox O2 Del Method O2 Flow Rate 97.4 F L 101 H 21 H 96/71 100 Mechanical Ventilator 2 05/10/24 08:00 05/10/24 11:00 05/10/24 11:00 05/10/24 11:00 05/10/24 11:00 05/10/24 11:00 05/09/24 09:00 FiO2 40 05/10/24 11:00 Oxygen Flow Rate (L/min) 2 Oxygen Delivery Method Mechanical Ventilator Weight: 37.2 kg Body Mass Index (BMI) 16.5 Intake & Output: Intake and Output for Last 24 Hours 05/08/24 05/09/24 05/10/24 23:59 23:59 23:59 Intake Total 3748.84 / 3748.84 3519.75 / 3556.75 2191.53 / 2191.53 Output Total 1165 / 1515 1608 / 1608 325 / 325 Balance 2583.84 / 2233.84 1911.75 / 1948.75 1866.53 / 1866.53 Medical Nutrition Assessment Dietitian: Malnutrition Criteria Met Start: 05/08/24 09:49 Freq: Status: Active Protocol: Document 05/08/24 09:49 BETINA (Rec: 05/08/24 09:49 BETINA [id number]) Nutrition Malnutrition Evidence of Malnutrition Exists Yes Malnutrition (severe): Chronic Evidenced By Suboptimal Energy Intake ( Severe),Weight Loss (Severe), Physical Changes (Severe) Clinical Problem Chronic Disease or Condition Related Malnutrition Etiology related to lung cancer and removal of LLL of lung and subsequent inadequate energy intake Signs/Symptoms as evidenced by 5% wt loss x several months, poor po intake w/ <75% of est nutritional intake and obvious fat loss/muscle depletion throughout body; BMI 14.6 Status Active Problem Recommendation Dietitian Recommendations/Changes As medically able, rec JOHNATHAN to liberal Regular w/ magic cup at lunch and dinner for increased nutrition if consumed As medically able, rec Ensure Plus High Protein 4x/day w/ medpass (prefers vanilla) for increased nutrition if consumed. Rec consider appetite stimulant to help encourage increased po intake. If NPO prolonged and/or continued poor po intake/wt loss - may wish to consider supplemental nutrition support to help prevent further decline in nutritional status if in accordance w/ pt/family wishes. Lab / Micro Data 05/10/24 03:15 05/10/24 03:15 Labs: Laboratory Results - last 24 hr 05/09/24 12:15: PT 16.2 H, INR 1.3, APTT 34.0, Fibrinogen > 900 H, D-Dimer Quant (PE/DVT) 16.30 H* 05/09/24 17:29: POC Glucose 115 H 05/10/24 03:15: WBC 19.7 H, RBC 3.02 L, Hgb 9.9 L, Hct 29.6 L, MCV 98.0, MCH 32.8 H, MCHC 33.4, RDW Std Deviation 50.7 H, RDW Coeff of Timothy 14.1, Plt Count 14 L*, Immature Gran % (Auto) 1.700 H, Neut % (Auto) 89.4 H, Lymph % (Auto) 2.9 L, [place] % (Auto) 5.5, Eos % (Auto) 0.0, Baso % (Auto) 0.5, Absolute Neuts (auto) 17.6 H, Absolute Lymphs (auto) 0.57 L, Nucleated RBC % 0.1, Differential Comment SCANNED, Diff Path Review May , Platelet Estimate MKD DEC, Sodium 147 H, Potassium 3.3 L, Chloride 120 H, Carbon Dioxide 19.0 L, Anion Gap 8, BUN 25 H, Creatinine 0.46 L, Estim Creat Clear Calc 66.99, Est GFR (MDRD) Af Amer 178, Est GFR (MDRD) Non-Af 147, BUN/Creatinine Ratio 54.9 H, Glucose 134 H, Calcium 7.4 L, Total Bilirubin 1.10 H, AST 167 H, ALT 62 H, Alkaline Phosphatase 124 H, Total Protein 4.6 L, Albumin 1.5 L, Globulin 3.1, Albumin/Globulin Ratio 0.5 L 05/10/24 11:41: POC Glucose 119 H Micro: Microbiology 05/09/24 10:10 Sputum, Induced/Lukens Gram Stain - Final 05/07/24 10:15 Blood Culture (Wb) - Left Hand Blood Culture - Final Alpha hemolytic organism 05/07/24 10:40 Blood Culture (Wb) - Right Hand Bacteria Detection (PCR) - Final Streptococcus pneumoniae 05/07/24 10:40 Blood Culture (Wb) - Right Hand Blood Culture - Final Streptococcus pneumoniae 05/07/24 09:45 Urine Catheter - Raymond Urine Culture - Preliminary Enterococcus faecalis Gram Positive Cocci Sphingomonas paucimobilis 05/07/24 16:16 Mucosa - Nasopharyngeal SARS-CoV-2, Influenza & RSV (PCR) - Final ABG Data ABG results: ABG 05/10/24 07:25 Specimen Type ART Sample Site L Radial pH 7.36 Bicarbonate Actual 16.4 L Total CO2 17 Base Excess -9 L O2 Saturation 99 O2 % 40.0 ABG pCO2 29.2 L ABG pO2 117 H Yaniv Test Positive Respiration Rate 12 O2 Delivery Device ET Tube Vent Mode AC Tidal Volume 400.0 POC PEEP 5 Physical Exam Neuro Neuro Narrative: Sedated Not following commands Brain stem reflexes intact Trace response to pain in all extremities Subject: Neurology Subjective ROBERTA SCHMIDT is a 63 F with a history of of B-cell lymphoma first diagnosed 7 years ago s/p R-CHOP with recent relapse 2022 s/p left lower lobe resection and chemotherapy (unclear which type). She presented to [facility] on 05/07/2024 for altered mental status. She was found to be bacteremic with left lower lobe pneumonia as source. Blood cultures positive for strep pneumonia. She has ongoing encephalopathy and was intubated. MRI shows stroke in R Frontoparietal regio. Unchanged over last 24 hours. EEG Results Procedure Details EEG Procedure Details: Mild to moderate encephalopathy Assessment and Plan: Stroke Assessment/Plan ROBERTA SCHMIDT is a 63 yo with B-cell lymphoma first diagnosed 7 years ago s/p R-CHOP with recent relapse 2022 s/p left lower lobe resection and chemotherapy (unclear which type). She presented to [facility] on 05/07/2024 for altered mental status. She was found to be bacteremic with left lower lobe pneumonia as source. Blood cultures positive for strep pneumonia. She has ongoing encephalopathy and was intubated. MRI shows stroke in R Frontoparietal region. Also noticed to have thrombocytopenia, sepsis. Neurological examination shows encephalopathy, sedated, intubated, not following commands, intact brain stem reflexes, trace response to pain in all extremities. Neuroimaging shows Right frontoparietal stroke. Unclear etiology of stroke. W/up in progress. EEG: mild-moerate encephalopathy. No seizures. ECHO: EF okay. Not a TNK or thrombectomy candidate. From stroke stand point will need 1. CTA head and neck when able 2. HbA1C, Fasting lipid profile, ammonia levels 3. F/up on repeat Bcx to determine if bacteremic 4. Hold AP given thrombocytopenia. Resume once able from platelet stand point 5. Serial neurochecks. Wean sedation as far as tolerated. 6. Avoid hypotension Awaiting transfer to higher level of care Thanks for the consult. Spent 35 min in evaluation and management of this patient.
--- NOTE | 2024-05-10 13:04 | PN_ITS ---
Subjective Subjective Patient seen and examined. She was intubated yesterday. She remains intubated; unable to do review of systems. She is awaiting transfer to [facility]. Platelets have trended downwards some more to 14 today. Objective Data Objective Data Vital Signs: Vital Signs Temp Pulse Resp BP Pulse Ox O2 Del Method O2 Flow Rate 98.1 F 101 H 24 H 88/68 L 98 Mechanical Ventilator 2 05/10/24 12:00 05/10/24 12:32 05/10/24 12:32 05/10/24 12:00 05/10/24 12:32 05/10/24 12:00 05/09/24 09:00 FiO2 40 05/10/24 12:32 Oxygen Flow Rate (L/min) 2 Oxygen Delivery Method Mechanical Ventilator Weight: 82 lb 0.191 oz Body Mass Index (BMI) 16.5 Intake & Output: Intake and Output for Last 24 Hours 05/08/24 05/09/24 05/10/24 23:59 23:59 23:59 Intake Total 3748.84 / 3748.84 3519.75 / 3556.75 2197.18 / 2197.18 Output Total 1165 / 1515 1608 / 1608 325 / 325 Balance 2583.84 / 2233.84 1911.75 / 1948.75 1872.18 / 1872.18 Medical Nutrition Assessment Dietitian: Malnutrition Criteria Met Start: 05/08/24 09:49 Freq: Status: Active Protocol: Document 05/08/24 09:49 BETINA (Rec: 05/08/24 09:49 SLA [id number]) Nutrition Malnutrition Evidence of Malnutrition Exists Yes Malnutrition (severe): Chronic Evidenced By Suboptimal Energy Intake ( Severe),Weight Loss (Severe), Physical Changes (Severe) Clinical Problem Chronic Disease or Condition Related Malnutrition Etiology related to lung cancer and removal of LLL of lung and subsequent inadequate energy intake Signs/Symptoms as evidenced by 5% wt loss x several months, poor po intake w/ <75% of est nutritional intake and obvious fat loss/muscle depletion throughout body; BMI 14.6 Status Active Problem Recommendation Dietitian Recommendations/Changes As medically able, rec JOHNATHAN to liberal Regular w/ magic cup at lunch and dinner for increased nutrition if consumed As medically able, rec Ensure Plus High Protein 4x/day w/ medpass (prefers vanilla) for increased nutrition if consumed. Rec consider appetite stimulant to help encourage increased po intake. If NPO prolonged and/or continued poor po intake/wt loss - may wish to consider supplemental nutrition support to help prevent further decline in nutritional status if in accordance w/ pt/family wishes. Lab / Micro Data 05/10/24 03:15 05/10/24 03:15 Labs: Laboratory Results - last 24 hr 05/09/24 17:29: POC Glucose 115 H 05/10/24 03:15: WBC 19.7 H, RBC 3.02 L, Hgb 9.9 L, Hct 29.6 L, MCV 98.0, MCH 32.8 H, MCHC 33.4, RDW Std Deviation 50.7 H, RDW Coeff of Timothy 14.1, Plt Count 14 L*, Immature Gran % (Auto) 1.700 H, Neut % (Auto) 89.4 H, Lymph % (Auto) 2.9 L, [place] % (Auto) 5.5, Eos % (Auto) 0.0, Baso % (Auto) 0.5, Absolute Neuts (auto) 17.6 H, Absolute Lymphs (auto) 0.57 L, Nucleated RBC % 0.1, Differential Comment SCANNED, Diff Path Review May foll, Platelet Estimate MKD DEC, Sodium 147 H, P otassium 3.3 L, Chloride 120 H, Carbon Dioxide 19.0 L, Anion Gap 8, BUN 25 H, C reatinine 0.46 L, Estim Creat Clear Calc 66.99, Est GFR (MDRD) Af Amer 178, Est GFR (MDRD) Non-Af 147, BUN/Creatinine Ratio 54.9 H, Glucose 134 H, Calcium 7.4 L , Total Bilirubin 1.10 H, AST 167 H, ALT 62 H, Alkaline Phosphatase 124 H, Total Protein 4.6 L, Albumin 1.5 L, Globulin 3.1, Albumin/Globulin Ratio 0.5 L 05/10/24 11:41: POC Glucose 119 H Micro: Microbiology 05/09/24 10:10 Sputum, Induced/Lukens Gram Stain - Final 05/07/24 10:15 Blood Culture (Wb) - Left Hand Blood Culture - Final Alpha hemolytic organism 05/07/24 10:40 Blood Culture (Wb) - Right Hand Bacteria Detection (PCR) - Final Streptococcus pneumoniae 05/07/24 10:40 Blood Culture (Wb) - Right Hand Blood Culture - Final Streptococcus pneumoniae 05/07/24 09:45 Urine Catheter - Raymond Urine Culture - Preliminary Enterococcus faecalis Gram Positive Cocci Sphingomonas paucimobilis 05/07/24 16:16 Mucosa - Nasopharyngeal SARS-CoV-2, Influenza & RSV (PCR) - Final ABG Data ABG results: ABG 05/10/24 07:25 Specimen Type ART Sample Site L Radial pH 7.36 Bicarbonate Actual 16.4 L Total CO2 17 Base Excess -9 L O2 Saturation 99 O2 % 40.0 ABG pCO2 29.2 L ABG pO2 117 H Yaniv Test Positive Respiration Rate 12 O2 Delivery Device ET Tube Vent Mode AC Tidal Volume 400.0 POC PEEP 5 Physical Exam Const Negative for alert, oriented x3, no apparent distress, average body habitus, healthy appearing or well nourished Constitutional Narrative: patient very frail, cachectic, very lethargic, minimally responsive Orientation / Consciousness: confused and lethargic HEENT normocephalic and head/scalp atraumatic Eyes PERRL and EOMs intact bilaterally Neck no lymphadenopathy and supple Lymph Lymphatic: no lymphadenopathy noted and no lymphedema noted Resp Resp Narrative: mildly diminished breath sounds bibasally, no wheezes or crackles. tachypneic. Intubated, sedated. Cardio regular rhythm, S1 normal heart sound and S2 normal heart sound; Negative for regular rate Cardio Narrative: tachycardic GI normal to inspection, nondistended, normoactive bowel sounds, soft to palpation, non-tender and non-distended Extremity normal to inspection, normal capillary refill and no clubbing, cyanosis or edema General Extremity: no tenderness to palpation of joints or extremities Skin Skin Narrative: has ecchymotic patches over her upper extremities which are chronic, but appear to be worsening Neuro No oriented x3 Neuro Narrative: intubated, sedated, RASS is -4 Motor Exam: general weakness Psych Psych Narrative: intubated, sedated, RASS score is -4 Assessment & Plan Assessment/Plan (1) Altered mental status: (2) Severe sepsis: (3) Pneumonia: PLAN: Plan #Acute encephalopathy * etiology is likely due to severe sepsis from pneumonia as well as acute CVA * She remains very lethargic and minimally responsive. * MRI of the brain showed multiple scattered foci of acute ischemia in the high right frontoparietal white matter, with no abnormal enhancing ischemia * blood cultures growing Strep pneumoniae. * On IV ceftriaxone and azithromycin * CT of the brain on admission showed no acute intracranial pathology. * critical care on board * EEG done and read is pending. * Patient's clinical deterioration and MRI findings discussed with Dr. Mariely Shah of [facility] neurology today as well as with Dr. Montes knee bolter. Decision made to transfer patient emergently to neuro ICU at [facility]. Patient accepted and pending bed availability. * #Acute hypoxic respiratory failure * Likely due to sepsis from pneumonia. Patient was tachypneic and tachycardic. Patient was electively intubated today due to concerns that patient will tire out from her increased work of breathing. * Currently intubated and sedated * On IV ceftriaxone and azithromycin. Blood cultures positive for strep pneumonia. Critical care on board. * #Sepsis due to pneumococcal pneumonia: as above. wbc has trended down slightly to 22 today. #THrombocytopenia * platelets have dropped further to 14 from 16 yesterday. Platelets were 135 on admission. * Still has the ecchymotic patches which have not worsened. * Discussed with patient's oncologist Dr. Robb who stated that he is concerned about DIC and recommended that we order coagulation panel. I did speak to lab who reviewed the slides again and saw no evidence of schistocytes. * INR is 1.3. Fibrinogen has increased to more than 900 and D-dimer is also elevated at 16.3. * CTA chest done 2 days ago showed no evidence of PE * hematology consulted today as platelets dropped further to 14. [facility] does not see patients inpatient anymore, per Dr Robb. [facility] therefore consulted. Dr Stack informed. * awaiting transfer to [facility] * #History of B cell lymphoma * in remission now, according to and daughter. * #Hypokalemia and hypomagnesemia: potassium today is 3.3. Will replace and trend. #Pericardial effusion: * as per CT. 2D echo showed EF of 60% with normal left ventricular systolic function and stage I diastolic dysfunction with pulmonary artery systolic pressure 45 mmHg and small pericardiac effusion. #History of chronic alcohol abuse: * Patient's oncologist informed me that patient has a history of chronic alcohol abuse. This may be contributing to her hypokalemia and hypomagnesemia as well. * at risk of alcohol withdrawal. #History of COPD: not in exacerbation. Breathing treatments with bronchodilators. #History of left lower lobectomy: for cancer. stable. #Depression: on duloxetine #Hypertension: on nifedipine 30mg XR daily. #GERD: on PPI #Hyperlipidemia: on statin. DVT prophylaxis: SCDs Disposition: Awaiting transfer to [facility] pending bed availability. Charges/Coding Visit Charges Inpatient E&M: 92791 Subs Hosp L3
--- NOTE | 2024-05-10 14:57 | CASEMGMT ---
Social Work SW spoke w/pt's and brother in room, offered support. SW remains available for support to family as needed. TIFFANY Wills
--- NOTE | 2024-05-10 15:42 | CASEMGMT ---
Social Work Pt has had strokes but pt cannot complete PHQ-9, as she is on a vent. TIFFANY Wills
--- NOTE | 2024-05-10 18:02 | ONC.CONSULT ---
Assessment & Plan Assessment/Plan (1) Thrombocytopenia: Status: Acute Code(s): D69.6 - Thrombocytopenia, unspecified Plan: Pt has thrombocytopenia, etiology is multifactorial factors which includes medications-antibiotics, sepsis. PLT will increase when clinical condition resolves. Suggest Platelet transfusion if PLT drops below 10K. Will not follow further on this admission. HPI Consult Data Date of Service:: 05/10/24 PCP / Referring Provider: DION Hui Attending: Dr. Lou Arana MD Chief Complaint Chief Complaint: Asked to see Pt with thrombocytopenia. History of Present Illness History of Present Illness: 63-year-old woman with history of non-Hodgkin's lymphoma in remission, lung cancer status post left lower lobectomy, currently in remission, was admitted on 05/07/2024 with sepsis syndrome, community-acquired pneumonia, encephalopathy and started on antibiotics on admission. When she was admitted platelets were 135, the next day it dropped to 41 and today it is 14. Peripheral smear on 05/09/2024 shows neutrophilia with bands. Now she is on a ventilator. Advanced Directives Power of Commercial Census Taker: No Living Will: No PFSH Medical History Lymphoma Depression GERD (gastroesophageal reflux disease) Hyperlipemia Home Medications ?Medication ?Instructions ?Recorded ?Last Taken ?Type simvastatin 40 mg tablet 40 mg PO DAILY 07/30/18 Unknown History calcium carbonate 600 mg-vitamin 1 ea PO BID 10/11/18 Unknown History D3 20 mcg (800 unit) tablet (Caltrate with Vitamin D3) naproxen 500 mg tablet,delayed 500 mg PO BID PRN Pain 12/27/22 Unknown History release omeprazole 20 mg capsule,delayed 20 mg PO DAILY 12/27/22 Unknown History release duloxetine 30 mg capsule,delayed 30 mg PO DAILY 05/07/24 Unknown History release gabapentin 300 mg capsule 300 mg PO TID 05/07/24 Unknown History magnesium chloride 71.5 mg 143 mg PO DAILY 05/07/24 Unknown History (magnesium chloride) tablet,delayed release (Slow-Mag) methocarbamol 500 mg tablet 750 mg PO Q6H PRN PRN pain 05/07/24 Unknown History nifedipine 30 mg tablet,extended 30 mg PO DAILY 05/07/24 Unknown History release 24 hr thiamine HCl (vitamin B1) 100 mg 100 mg PO DAILY 05/07/24 Unknown History tablet tiotropium bromide 2.5 2 puff inhalation DAILY 05/07/24 Unknown History mcg/actuation mist for inhalation (Spiriva Respimat) vitamin B complex (Vitamins B 1 cap PO DAILY 05/07/24 Unknown History Complex capsule) Allergy/AdvReac Type Severity Reaction Status Date / Time No Known Allergies Allergy Verified 06/04/23 10:39 Family History no significant family his Surgical History unable to obtain Social History Smoking Status: Current every day smoker tobacco type: cigarettes Physical Exam Const Constitutional Narrative: sedated, attached to vent by endotracheal tube. HEENT normocephalic Eyes no scleral icterus Neck supple Lymph Lymphatic: no lymphadenopathy noted Resp clear to auscultation bilaterally Cardio regular rate, regular rhythm, S1 normal heart sound and S2 normal heart sound GI normal to inspection, nondistended, normoactive bowel sounds Extremity no clubbing, cyanosis or edema Neuro Neuro Narrative: sedated Vital Signs Temperature 98.1 F 05/10/24 12:00 Temperature Source Temporal 05/10/24 12:00 Pulse Rate 99 05/10/24 17:25 Pulse Strength Normal (2+) 05/10/24 08:23 Respiratory Rate 25 H 05/10/24 17:25 Respiratory Effort Mechanically Ventilated 05/10/24 15:53 Respiratory Depth Normal 05/10/24 15:53 Respiratory Pattern Normal 05/10/24 17:25 Blood Pressure 97/68 05/10/24 17:00 Blood Pressure Mean 77 05/10/24 17:00 Blood Pressure Source Monitor 05/10/24 17:00 Blood Pressure Position Semi-Fowlers 05/10/24 17:00 Blood Pressure Location Left Arm 05/10/24 17:00 Pulse Ox 98 05/10/24 17:25 Oxygen Delivery Method Mechanical Ventilator 05/10/24 17:00 Oxygen Flow Rate (L/min) 2 05/09/24 09:00 Fraction of Inspired Oxygen (FIO2) 40 05/10/24 17:25 Laboratory Results - last 24 hr 05/10/24 03:15: WBC 19.7 H, RBC 3.02 L, Hgb 9.9 L, Hct 29.6 L, MCV 98.0, MCH 32.8 H, MCHC 33.4, RDW Std Deviation 50.7 H, RDW Coeff of Timothy 14.1, Plt Count 14 L*, Immature Gran % (Auto) 1.700 H, Neut % (Auto) 89.4 H, Lymph % (Auto) 2.9 L, [place] % (Auto) 5.5, Eos % (Auto) 0.0, Baso % (Auto) 0.5, Absolute Neuts (auto) 17.6 H, Absolute Lymphs (auto) 0.57 L, Nucleated RBC % 0.1, Differential Comment SCANNED, Diff Path Review March, Platelet Estimate MKD DEC, Sodium 147 H, Potassium 3.3 L, Chloride 120 H, Carbon Dioxide 19.0 L, Anion Gap 8, BUN 25 H, Creatinine 0.46 L, Estim Creat Clear Calc 66.99, Est GFR (MDRD) Af Amer 178, Est GFR (MDRD) Non-Af 147, BUN/Creatinine Ratio 54.9 H, Glucose 134 H, Calcium 7.4 L, Total Bilirubin 1.10 H, AST 167 H, ALT 62 H, Alkaline Phosphatase 124 H, Total Protein 4.6 L, Albumin 1.5 L, Globulin 3.1, Albumin/Globulin Ratio 0.5 L 05/10/24 11:41: POC Glucose 119 H Microbiology 05/09/24 10:10 Sputum, Induced/Lukens Gram Stain - Final 05/07/24 10:15 Blood Culture (Wb) - Left Hand Blood Culture - Final Alpha hemolytic organism 05/07/24 10:40 Blood Culture (Wb) - Right Hand Bacteria Detection (PCR) - Final Streptococcus pneumoniae 05/07/24 10:40 Blood Culture (Wb) - Right Hand Blood Culture - Final Streptococcus pneumoniae 05/07/24 09:45 Urine Catheter - Raymond Urine Culture - Preliminary Enterococcus faecalis Gram Positive Cocci Sphingomonas paucimobilis Diagnostic Data Brain CT 05/07/24 09:48 IMPRESSION: 1. No acute intracranial process. 2. Small old lacunar infarct in the left basal ganglia. 3. Chronic involutional changes of the brain Electronically Signed: Cayden Small MD at 10:16 EDT , Chest CTA 05/07/24 12:22 IMPRESSION: 1. No evidence of pulmonary embolism or aortic dissection. 2. Moderate pericardial effusion. 3. Patchy infiltrates bilaterally worse on the left lower lobe concerning for pneumonia. 4. Probable underlying chronic fibrotic changes and bronchiectatic changes. Electronically Signed: Cayden Small MD at 12:56 EDT , Echocardiogram 05/07/24 18:25 Interpretation Summary Normal LV size. Left ventricular systolic function is normal. The estimated ejection fraction is 60 %. Stage 1 diastolic dysfunction. Pulmonary artery systolic pressure is 45 mmHg. Small pericardial effusion. Ordering Physician: Natalie Crawford Performed By: Guzman Martin RCS Brain MRI 05/08/24 14:05 IMPRESSION: Multiple scattered foci of acute ischemia in the high right frontoparietal white matter. No abnormal enhancing lesion. Electronically Signed: Hawk Ayon MD at 20:29 EDT , ADDENDUM: 05/08/24 2130 IMPRESSION: Multiple scattered foci of acute ischemia in the high right frontoparietal white matter. No abnormal enhancing lesion. N.B. : The above Results were Read Back by Hawk Ayon MD to Buster Muir MD, and understanding confirmed on 05/08/2024 21:23:58 (ET). Electronically Signed: Hawk Ayon MD at 20:29 EDT , Chest X-Ray 05/09/24 09:55 IMPRESSION: The tip of the endotracheal tube is at 2.9 cm proximal to the julianne. The tip of the orogastric tube is in the body of the stomach. Persistent lingular and left lower lobe infiltrates although there has been improvement as compared to prior study. Electronically Signed: Martín Richardson MD at 10:11 EDT , Charges/Coding Visit Charges Office Visits / Consults: [id number] IP Consult L3
[2024-05-10 18:10] LABS: Bedside Glucose 116 mg/dL (74-106)
[2024-05-10] MEDS: Midazolam 2 MG/2 ML Syringe IV (20:47)
[2024-05-10] MEDS: Atorvastatin Calcium 20 MG Tablet PO (21:59)
[2024-05-10] MEDS: Propofol 10MG/Ml 1,000 MG/100 ML Bottle 3.3 MG CONT INF (23:30)
[2024-05-11] VITALS (18 sets, daily range): BP systolic 82–105; BP diastolic 58–74; PULSE 84–111; RESP 12–27; TEMP 36.8–38; O2SAT 94–100; BMI 17.5
[2024-05-11 00:43] LABS: Bedside Glucose 104 mg/dL (74-106)
[2024-05-11] MEDS: Midazolam 2 MG/2 ML Syringe IV (02:15)
[2024-05-11] MEDS: 0.9% Normal Saline (1000mL) 1,000 ML 100 ML IV ×2 (02:16→11:11)
--- NOTE | 2024-05-11 02:19 | NURSING ---
This RN went in to rm to give PRN versed IV for RR 29 and vent dyssynchrony, pt's RR dropped suddenly to 12 and HR to 88, pulse palpable; waited x5min, RR + HR returned to previous pattern, PRN versed given.
[2024-05-11 04:33] LABS: Absolute Lymphocyte Count 0.95 X10^3/uL (0.83-4.51); Basophil# 0.03 X10^3/uL; Basophil% 0.2 % (0-1); Hematocrit 24.5 % (37-47); Hemoglobin 8.1 g/dL (12.0-15.0); Lymphocyte # 0.95 X10^3/ul (0.83-4.51); Lymphocyte % 5.8 % (19-41); Mean Corp Hgb Conc 33.1 g/dL (32-36); Mean Corpuscular Hgb 32.7 pg (27.0-32.0); Mean Corpuscular Volume 98.8 fL (81-99); Monocyte# 1.08 X10^3/uL; Monocyte% 6.6 % (0-10); NRBC Flagged by Analyzer 0.2 % (0-5); Neutrophil % 85.1 % (47-70); POSITIVE COUNT YES; RBC Distribution Width CV 14.4 % (11.6-14.6); RBC Distribution Width SD 51.4 fl (35.1-43.9); Red Blood Count 2.48 M/mm3 (4.2-5.4); White Blood Count 16.4 K/mm3 (4.4-11.0)
[2024-05-11 04:51] LABS: ALB/GLOB Ratio 0.4 RATIO (0.9-2.4); AST(SGOT) 159 U/L (15-37); Alanine Aminotransfer ALT/SGPT 57 U/L (13-56); Albumin, Serum 1.3 g/dL (3.2-5.0); Alkaline Phosphatase 114 U/L (45-117); Anion Gap 6 (5-15); BUN 25 mg/dL (7-18); BUN/Creat Ratio 49.6 RATIO (10-20); Calcium,Total 7.4 mg/dL (8.5-10.1); Chloride 123 mmol/L (98-107); Cholesterol 61 mg/dL (200); EST Glomerular Filtration Rate 131 mL/min (>60); Est Glom Filt Rate - Afr Amer 158 mL/min (>60); Estimated Creatinine Clearance 67.63 ml/min; Glucose 101 mg/dL (74-106); High Density Lipoprotein 8 mg/dL; Potassium 3.6 mmol/L (3.5-5.1); Protein, Total 4.3 g/dL (6.4-8.2); Sodium Level 148 mmol/L (136-145); Triglycerides 137 mg/dL; Very Low Density Lipoprotein 27 mg/dL (5-40)
[2024-05-11 05:14] LABS: Differential Indicated SCAN CRITERIA MET; Platelet Count 21 K/mm3 (150-450)
[2024-05-11] MEDS: Ipratropium/Albuterol Sulfate 3 ML AMPUL.NEB INHALATION (07:00)
[2024-05-11] MEDS: TITRATION PARAMETER CHANGE 1 EACH IV (07:19)
--- NOTE | 2024-05-11 07:38 | PCM.PN.INT ---
Assessment & Plan Assessment/Plan (1) Altered mental status: (2) Pneumonia: (3) B-cell lymphoma: PLAN: Plan RECOMMENDATIONS: 1. Continue assist-control mode mechanical ventilation. Wean FiO2 for saturations greater than 90%. 2. Continue bronchodilator therapy. 3. Continue antimicrobial therapy. 4. Continue appropriate GI prophylaxis. 5. Okay to initiate tube feeding. 6. Awaiting transfer to [facility]. IMPRESSIONS: 1. Sepsis The patient presented with sepsis due to pneumococcal pneumonia with secondary bacteremia with acute sepsis related organ dysfunction as evidenced by altered mental status, thrombocytopenia and lactic acidemia. The patient was placed on appropriate antimicrobial therapy. She remains hemodynamically stable at the present time. Repeat blood cultures have not demonstrated any growth to date. 2. Acute respiratory failure The patient was ultimately intubated on the morning of May 09 over concerns for her ability to protect her airway, in light of worsening neurologic status. The patient will be maintained on assist-control mode of mechanical ventilation, with a goal to wean FiO2 and PEEP as tolerated. 3. Encephalopathy Unclear etiology. MRI brain did reveal several acute strokes. EEG was completed, but failed to demonstrate any seizure burden.. The patient is awaiting transfer to [facility] for further neurologic evaluation and management. 4. Anemia/thrombocytopenia Unclear etiology. However, sepsis, DIC and HIT are all possibilities. Continue current supportive measures for now. PF4 antibody screen was sent. 5. History of COPD/history of left lower lobectomy for malignancy Continue scheduled bronchodilator therapy for now. 6. History of B-cell lymphoma/psoriasis/neuropathy/depression/anxiety/GERD/hyperlipidemia Complicates care, management, recovery and prognosis. Continue supportive measures as noted above. TIME: 33 minutes of critical care time, inclusive of procedures, was spent addressing the patient's sepsis, acute respiratory failure, encephalopathy, anemia, thrombocytopenia, review of all data and collaboration with care team. Subjective Subjective The patient was seen and examined at the bedside this morning. Events from the last 24 hours have been reviewed. The patient is currently afebrile, hemodynamically stable and maintaining appropriate oxygen saturations on assist-control mode mechanical ventilation with an FiO2 requirement of 25%. The patient remains neurologically unchanged from previous. She is still awaiting transfer to [facility]. Her white blood cell count has improved to 16,000. Hemoglobin is down to 8.1 g/dL. Platelet count has improved to 21,000. Objective Data Objective Data The patient's most recent lab work, culture data and imaging studies have all been personally reviewed. COVID, influenza and RSV PCR's were negative. Blood cultures were positive for Streptococcus pneumonia. Repeat blood cultures are pending. Vital Signs: Vital Signs Temp Pulse Resp BP Pulse Ox O2 Del Method O2 Flow Rate 100.4 F H 109 H 20 H 84/61 L 100 Mechanical Ventilator 2 05/11/24 04:00 05/11/24 07:01 05/11/24 07:01 05/11/24 07:00 05/11/24 07:01 05/11/24 07:01 05/09/24 09:00 FiO2 25 05/11/24 07:01 Oxygen Flow Rate (L/min) 2 Oxygen Delivery Method Mechanical Ventilator Weight: 87 lb 1.321 oz Body Mass Index (BMI) 17.5 Intake & Output: Intake and Output for Last 24 Hours 05/09/24 05/10/24 05/11/24 23:59 23:59 23:59 Intake Total 3519.75 / 3556.75 3084.80 / 3086.45 985.05 / 985.05 Output Total 1608 / 1608 725 / 725 150 / 150 Balance 1911.75 / 1948.75 2359.80 / 2361.45 835.05 / 835.05 Medical Nutrition Assessment Dietitian: Malnutrition Criteria Met Start: 05/08/24 09:49 Freq: Status: Active Protocol: Document 05/08/24 09:49 BETINA (Rec: 05/08/24 09:49 SLA [id number]) Nutrition Malnutrition Evidence of Malnutrition Exists Yes Malnutrition (severe): Chronic Evidenced By Suboptimal Energy Intake ( Severe),Weight Loss (Severe), Physical Changes (Severe) Clinical Problem Chronic Disease or Condition Related Malnutrition Etiology related to lung cancer and removal of LLL of lung and subsequent inadequate energy intake Signs/Symptoms as evidenced by 5% wt loss x several months, poor po intake w/ <75% of est nutritional intake and obvious fat loss/muscle depletion throughout body; BMI 14.6 Status Active Problem Recommendation Dietitian Recommendations/Changes As medically able, rec JOHNATHAN to liberal Regular w/ magic cup at lunch and dinner for increased nutrition if consumed As medically able, rec Ensure Plus High Protein 4x/day w/ medpass (prefers vanilla) for increased nutrition if consumed. Rec consider appetite stimulant to help encourage increased po intake. If NPO prolonged and/or continued poor po intake/wt loss - may wish to consider supplemental nutrition support to help prevent further decline in nutritional status if in accordance w/ pt/family wishes. Lab / Micro Data Attestation: I reviewed the patient's lab results. 05/11/24 04:15 05/11/24 04:15 Labs: Laboratory Results - last 24 hr 05/10/24 11:41: POC Glucose 119 H 05/10/24 17:51: POC Glucose 116 H 05/11/24 00:25: POC Glucose 104 05/11/24 04:15: WBC 16.4 H, RBC 2.48 L, Hgb 8.1 L, Hct 24.5 L, MCV 98.8, MCH 32.7 H, MCHC 33.1, RDW Std Deviation 51.4 H, RDW Coeff of Timothy 14.4, Plt Count 21 L*, Immature Gran % (Auto) 2.300 H, Neut % (Auto) 85.1 H, Lymph % (Auto) 5.8 L, [place] % (Auto) 6.6, Eos % (Auto) 0.0, Baso % (Auto) 0.2, Absolute Neuts (auto) 14.0 H, Absolute Lymphs (auto) 0.95, Nucleated RBC % 0.2, Diff Path Review March, Sodium 148 H, Potassium 3.6, Chloride 123 H, Carbon Dioxide 19.0 L, Anion Gap 6, BUN 25 H, Creatinine 0.50 L, Estim Creat Clear Calc 67.63, Est GFR (MDRD) Af Amer 158, Est GFR (MDRD) Non-Af 131, BUN/Creatinine Ratio 49.6 H, Glucose 101, Calcium 7.4 L, Total Bilirubin 1.60 H, AST 159 H, ALT 57 H, Alkaline Phosphatase 114, Total Protein 4.3 L, Albumin 1.3 L, Globulin 3.0, Albumin/Globulin Ratio 0.4 L, Triglycerides 137 05/11/24 04:15: Triglycerides Cancelled, Cholesterol 61 05/11/24 04:15: Cholesterol Cancelled, LDL Cholesterol 26 05/11/24 04:15: LDL Cholesterol Cancelled, VLDL Cholesterol 27 05/11/24 04:15: VLDL Cholesterol Cancelled, HDL Cholesterol 8 L 05/11/24 04:15: HDL Cholesterol Cancelled 05/11/24 05:55: Ammonia 18.0 Micro: Microbiology 05/09/24 10:10 Sputum, Induced/Lukens Gram Stain - Final 05/07/24 10:15 Blood Culture (Wb) - Left Hand Blood Culture - Final Alpha hemolytic organism 05/07/24 10:40 Blood Culture (Wb) - Right Hand Bacteria Detection (PCR) - Final Streptococcus pneumoniae 05/07/24 10:40 Blood Culture (Wb) - Right Hand Blood Culture - Final Streptococcus pneumoniae 05/07/24 09:45 Urine Catheter - Raymond Urine Culture - Preliminary Enterococcus faecalis Gram Positive Cocci Sphingomonas paucimobilis 05/07/24 16:16 Mucosa - Nasopharyngeal SARS-CoV-2, Influenza & RSV (PCR) - Final ABG Data ABG results: ABG 05/09/24 07:33 Specimen Type ART Sample Site L Radial pH 7.45 Bicarbonate Actual 15.4 L Total CO2 16 Base Excess -9 L O2 Saturation 95 O2 % 21.0 ABG pCO2 22.2 L ABG pO2 70 L Yaniv Test Positive O2 Delivery Device Room Air Vent Mode Not entered Radiography Diagnostic Testing: Radiology Impression Chest X-Ray 05/09/24 09:55 IMPRESSION: The tip of the endotracheal tube is at 2.9 cm proximal to the julianne. The tip of the orogastric tube is in the body of the stomach. Persistent lingular and left lower lobe infiltrates although there has been improvement as compared to prior study. Electronically Signed: Martín Richardson MD at 10:11 EDT , Physical Exam Const Constitutional Narrative: Intubated and mechanically ventilated. Frail in appearance. HEENT normocephalic and head/scalp atraumatic HEENT Narrative: Lip swelling noted. Mouth: endotracheal tube in place Eyes PERRL and conjunctivae normal Neck supple General: trachea midline Chest inspection of chest normal Resp normal respiratory effort Auscultation: Negative for rales, rhonchi or wheezes Cardio regular rate and regular rhythm GI normal to inspection, nondistended, normoactive bowel sounds Extremity no clubbing, cyanosis or edema Skin no rashes or lesions noted Neuro Neuro Narrative: Neurologically unchanged from previous. Sensorium / Orientation: sedated on vent Charges/Coding Procedures Hospitalists Procedures: 73180 Critical Care 1st Hr
[2024-05-11] MEDS: Pantoprazole Sodium 40 MG in 0.9% Normal Saline (100mL MB+) 100 ML 330 MG IV (08:07)
[2024-05-11] MEDS: Thiamine Hydrochloride 100 MG Tablet NG (08:08)
[2024-05-11] MEDS: Chlorhexidine 15 ML PO (08:08)
[2024-05-11] MEDS: Ceftriaxone 2 GM in 0.9% Normal Saline (50mL MB+) 50 ML IV (08:39)
--- NOTE | 2024-05-11 10:12 | PCM.DC.SUM ---
Providers Date of Admission: 05/07/24 Date of Discharge: 05/11/24 Primary Care Physician: DION Hui Consultations 05/07/24 15:24 Consult: Hairmasters Manager / Pulmonary Medicine Routine Consulting Provider: Intensivists/Pulmonary Med Reason for Consult: Sepsis EMERGENT Consult: No Notified: Yes Date Notified: 05/07/24 Time Notified: 15:24 Method of Notification: Answering Service 05/08/24 06:58 Consult: Tele-Neurology Routine Consulting Provider: [facility] Reason for Consult: Altered Mental Status EMERGENT Consult: No Notified: Yes Date Notified: 05/08/24 Time Notified: 07:59 Method of Notification: Answering Service Nursing Unit Staff Notify [facility] of Tele-Neurology Consult: Yes 05/10/24 08:42 Consult: Oncology/Hematology Routine Consulting Provider: [facility] ([facility]) Reason for Consult: thrombocytopenia EMERGENT Consult: No Notified: Yes Date Notified: 05/10/24 Time Notified: 08:42 Method of Notification: Text Reason For Visit: ALTERED MENTAL STATUS Diagnosis Discharge Diagnosis (1) Altered mental status: Status: Acute Code(s): R41.82 - Altered mental status, unspecified (2) Pneumonia: Status: Acute Code(s): J18.9 - Pneumonia, unspecified organism (3) B-cell lymphoma: Status: Acute Code(s): C85.10 - Unspecified B-cell lymphoma, unspecified site Plan #Acute encephalopathy etiology is likely due to severe sepsis from pneumonia as well as acute CVA She remains very lethargic and minimally responsive. MRI of the brain showed multiple scattered foci of acute ischemia in the high right frontoparietal white matter, with no abnormal enhancing ischemia blood cultures growing Strep pneumoniae. On IV ceftriaxone and azithromycin CT of the brain on admission showed no acute intracranial pathology. critical care on board EEG done and read is pending. Patient's clinical deterioration and MRI findings discussed with Dr. Mariely Shah of [facility] neurology today as well as with Dr. Montes property valuer. Decision made to transfer patient emergently to neuro ICU at [facility]. Patient accepted and pending bed availability. #Acute hypoxic respiratory failure Likely due to sepsis from pneumonia. Patient was tachypneic and tachycardic. Patient was electively intubated today due to concerns that patient will tire out from her increased work of breathing. Currently intubated and sedated On IV ceftriaxone and azithromycin. Blood cultures positive for strep pneumonia. Critical care on board. #Sepsis due to pneumococcal pneumonia: as above. wbc has trended down slightly to 22 today. #THrombocytopenia platelets have dropped further to 14 from 16 yesterday. Platelets were 135 on admission. Still has the ecchymotic patches which have not worsened. Discussed with patient's oncologist Dr. Robb who stated that he is concerned about DIC and recommended that we order coagulation panel. I did speak to lab who reviewed the slides again and saw no evidence of schistocytes. INR is 1.3. Fibrinogen has increased to more than 900 and D-dimer is also elevated at 16.3. CTA chest done 2 days ago showed no evidence of PE hematology consulted today as platelets dropped further to 14. [facility] does not see patients inpatient anymore, per Dr Robb. [facility] therefore consulted. Dr Stack informed. awaiting transfer to [facility] #History of B cell lymphoma in remission now, according to and daughter. #Hypokalemia and hypomagnesemia: potassium today is 3.3. Will replace and trend. #Pericardial effusion: as per CT. 2D echo showed EF of 60% with normal left ventricular systolic function and stage I diastolic dysfunction with pulmonary artery systolic pressure 45 mmHg and small pericardiac effusion. #History of chronic alcohol abuse: Patient's oncologist informed me that patient has a history of chronic alcohol abuse. This may be contributing to her hypokalemia and hypomagnesemia as well. at risk of alcohol withdrawal. #History of COPD: not in exacerbation. Breathing treatments with bronchodilators. #History of left lower lobectomy: for cancer. stable. #Depression: on duloxetine #Hypertension: on nifedipine 30mg XR daily. #GERD: on PPI #Hyperlipidemia: on statin. DVT prophylaxis: SCDs Disposition: Awaiting transfer to [facility] pending bed availability. Medications at Discharge Home Medications simvastatin 40 mg tablet 40 mg PO DAILY 07/30/18 calcium carbonate 600 mg-vitamin D3 20 mcg (800 unit) tablet (Caltrate with Vitamin D3) 1 ea PO BID 10/11/18 naproxen 500 mg tablet,delayed release 500 mg PO BID PRN Pain 12/27/22 omeprazole 20 mg capsule,delayed release 20 mg PO DAILY 01/29/23 duloxetine 30 mg capsule,delayed release 30 mg PO DAILY 05/07/24 gabapentin 300 mg capsule 300 mg PO TID 05/07/24 magnesium chloride 71.5 mg (magnesium chloride) tablet,delayed release (Slow-Mag) 143 mg PO DAILY 05/07/24 methocarbamol 500 mg tablet 750 mg PO Q6H PRN PRN pain 05/07/24 nifedipine 30 mg tablet,extended release 24 hr 30 mg PO DAILY 05/07/24 thiamine HCl (vitamin B1) 100 mg tablet 100 mg PO DAILY 05/07/24 tiotropium bromide 2.5 mcg/actuation mist for inhalation (Spiriva Respimat) 2 puff inhalation DAILY 05/07/24 vitamin B complex (Vitamins B Complex capsule) 1 cap PO DAILY 05/07/24 Hospital Course Operations None Procedures None Summary of Care Provided Minutes Spent on Discharge: 55 Hospital Course: Patient is a 63-year-old female with a past medical history as outlined which includes history of B-cell lymphoma and lung cancer s/p left lower lobe resection as well as psoriasis. She was admitted through the ED on 05/07/2024 with a complaint of altered mental status. said she had been having back pain for several days prior to admission and had not been taking any medications for it. However she became much more lethargic and was not responsive so called the EMS and she was brought into the ED. On arrival in the ED, labs showed lactic acidosis and wbc was elevated at 25. Sodium was 131 potassium was 2.8. Urinalysis showed RBC of 10-25 but no WBCs. Chest x-ray showed left perihilar and left lower lobe infiltrates which could be due to pneumonia. CT of the brain showed no acute intracranial pathology. CT of the chest showed patchy infiltrates bilaterally worse in the left lower lobe and moderate pericardial effusion. She was admitted and managed for acute metabolic encephalopathy due to community-acquired pneumonia. She was started on broad-spectrum antibiotics namely IV ceftriaxone and azithromycin. CODE STATUS was full code on admission. Patient had a protracted hospital course and hospital course was complicated by thrombocytopenia with platelets dropping from 135 on admission to a clementine of 14. There were no schistocytes on peripheral smear as per pathologist. Hospital course was complicated by worsening mentation so she had MRI of the brain done after neurology was consulted. MRI of the brain showed multiple scattered foci of acute ischemia in the high right frontoparietal white matter, concerning for stroke. Blood cultures were positive for Strep pneumoniae. EEG was done. Due to patient's MRI findings and worsening mentation, she was intubated to maintain her airway. Decision was made to transfer patient to tertiary care facility. She was accepted at [facility]. Patient was eventually transferred to [facility] on 05/11/2024. Patient was seen and examined prior to discharge. She remained intubated and sedated. RASS score is -4. She had to be placed on propofol overnight because she was was having ventilator assynchrony. Unable to review systems as she is intubate and sedated. Physical Exam Const Constitutional Narrative: patient very frail, cachectic, intubated, sedated. Orientation / Consciousness: lethargic HEENT normocephalic and head/scalp atraumatic Eyes PERRL and EOMs intact bilaterally Neck no lymphadenopathy and supple Lymph Lymphatic: no lymphadenopathy noted and no lymphedema noted Resp Resp Narrative: mildly diminished breath sounds bibasally, no wheezes or crackles. tachypneic. Intubated, sedated. Cardio regular rhythm, S1 normal heart sound and S2 normal heart sound; Negative for regular rate Cardio Narrative: tachycardic GI normal to inspection, nondistended, normoactive bowel sounds, soft to palpation, non-tender and non-distended Extremity normal to inspection, normal capillary refill and no clubbing, cyanosis or edema General Extremity: no tenderness to palpation of joints or extremities Skin Skin Narrative: has ecchymotic patches over her upper extremities which are bilateral Neuro Neuro Narrative: intubated, sedated, RASS is -4 Psych Psych Narrative: intubated, sedated, RASS score is -4 Medical Records Data Medical Nutrition Assessment Dietitian: Malnutrition Criteria Met Start: 05/08/24 09:49 Freq: Status: Active Protocol: Document 05/08/24 09:49 BETINA (Rec: 05/08/24 09:49 BETINA [id number]) Nutrition Malnutrition Evidence of Malnutrition Exists Yes Malnutrition (severe): Chronic Evidenced By Suboptimal Energy Intake ( Severe),Weight Loss (Severe), Physical Changes (Severe) Clinical Problem Chronic Disease or Condition Related Malnutrition Etiology related to lung cancer and removal of LLL of lung and subsequent inadequate energy intake Signs/Symptoms as evidenced by 5% wt loss x several months, poor po intake w/ <75% of est nutritional intake and obvious fat loss/muscle depletion throughout body; BMI 14.6 Status Active Problem Recommendation Dietitian Recommendations/Changes As medically able, rec JOHNATHAN to liberal Regular w/ magic cup at lunch and dinner for increased nutrition if consumed As medically able, rec Ensure Plus High Protein 4x/day w/ medpass (prefers vanilla) for increased nutrition if consumed. Rec consider appetite stimulant to help encourage increased po intake. If NPO prolonged and/or continued poor po intake/wt loss - may wish to consider supplemental nutrition support to help prevent further decline in nutritional status if in accordance w/ pt/family wishes. Weight / BMI Weight Weight: 87 lb 1.321 oz Body Mass Index (BMI) 17.5 ABG / Lab / Microbiology Data 05/11/24 04:15 05/11/24 04:15 Laboratory: Laboratory Results - last 24 hr 05/10/24 11:41: POC Glucose 119 H 05/10/24 17:51: POC Glucose 116 H 05/11/24 00:25: POC Glucose 104 05/11/24 04:15: WBC 16.4 H, RBC 2.48 L, Hgb 8.1 L, Hct 24.5 L, MCV 98.8, MCH 32.7 H, MCHC 33.1, RDW Std Deviation 51.4 H, RDW Coeff of Timothy 14.4, Plt Count 21 L*, Immature Gran % (Auto) 2.300 H, Neut % (Auto) 85.1 H, Lymph % (Auto) 5.8 L, [place] % (Auto) 6.6, Eos % (Auto) 0.0, Baso % (Auto) 0.2, Absolute Neuts (auto) 14.0 H, Absolute Lymphs (auto) 0.95, Nucleated RBC % 0.2, Diff Path Review March foll, Sodium 148 H, Potassium 3.6, Chloride 123 H, Carbon Dioxide 19.0 L, Anion Gap 6, BUN 25 H, Creatinine 0.50 L, Estim Creat Clear Calc 67.63, Est GFR (MDRD) Af Amer 158, Est GFR (MDRD) Non-Af 131, BUN/Creatinine Ratio 49.6 H, Glucose 101, Calcium 7.4 L, Total Bilirubin 1.60 H, AST 159 H, ALT 57 H, Alkaline Phosphatase 114, Total Protein 4.3 L, Albumin 1.3 L, Globulin 3.0, Albumin/Globulin Ratio 0.4 L, Triglycerides 137 05/11/24 04:15: Triglycerides Cancelled, Cholesterol 61 05/11/24 04:15: Cholesterol Cancelled, LDL Cholesterol 26 05/11/24 04:15: LDL Cholesterol Cancelled, VLDL Cholesterol 27 05/11/24 04:15: VLDL Cholesterol Cancelled, HDL Cholesterol 8 L 05/11/24 04:15: HDL Cholesterol Cancelled 05/11/24 05:55: Ammonia 18.0 Microbiology: Microbiology 05/07/24 09:45 Urine Catheter - Raymond Urine Culture - Preliminary Enterococcus faecalis Staphylococcus warneri Sphingomonas paucimobilis GNR lactose telecom field technician 05/09/24 10:10 Sputum, Induced/Lukens Gram Stain - Final 05/07/24 10:15 Blood Culture (Wb) - Left Hand Blood Culture - Final Alpha hemolytic organism 05/07/24 10:40 Blood Culture (Wb) - Right Hand Bacteria Detection (PCR) - Final Streptococcus pneumoniae 05/07/24 10:40 Blood Culture (Wb) - Right Hand Blood Culture - Final Streptococcus pneumoniae 05/07/24 16:16 Mucosa - Nasopharyngeal SARS-CoV-2, Influenza & RSV (PCR) - Final Meaningful Use Info Meaningful Use Meaningful Use Diagnoses (Choose all that apply): Ischemic CVA CVA Therapy Assessed for PT,OT and/or ST?: Yes Ischemic Stroke Antithrombotic order at d/c?: No Reason antithrombotic not ordered: Medical Contraindication (due to thrombocytopenia) Dx of Atrial fib/flutter?: No Statin Dosing Therapy Reference: STATIN DOSE THERAPY REFERENCE: * Patients > 75 years receive moderate or high dose statin therapy. * Patients 75 years or YOUNGER should receive HIGH intensity statin dose unless contraindicated. You will be required to document reason for non-treatment if statin daily dose does not meet guidelines. HIGH DOSE STATIN THERAPY DAILY Atorvastatin > than or = to 40 mg Rosuvastatin > than or = to 20 mg Amlodipine + Atorvastatin > than or = to 2.5/40 mg Ezetimibe + Simvastatin 10/80 mg Simvastatin 80mg Statins at discharge?: No Reason Statin not ordered: Medical Contraindication (transferred to tertiary facillity) If patient is 75 or younger, pt will be discharged on HIGH intensity statin.: No High intensity statin for patient 75 or younger not ordered due to: transferred to tertiary facility Primary Dx Acute Ischemic CVA?: No Discharge Plan Admission Admit Date/Time: 05/07/24 14:44 Primary Reason for Your Visit: acute hypoxic respiratory failure, acute encephalopathy Attending Provider: Lou Arana Primary Care Provider: Richard Hernandez Consulting Providers: Jude Baires; Yaidel Rothman; Robert Montes; Shelton Hale; Pola Alas; Karla Romero; Arun Nguyen; Mike Pederson; Andree Schroeder; Abida Weathers; Beena,Raffaele; Irmarcos,Vinny; Shira,Mariusz; Wicho Emery; Slick Caicedo; Natalie Crawford; Anmol Andrews; Damion Giles; Kely Alvarado; Mariely Shah; Giovanna Coon; Peter Livingston; Emmanuelle Kwok; Rusty Field; Nicholas Gottlieb; Estela Calles; Saurav Londono; Mariaa Montes; Chon De La Torre; Chi Flaherty; Alexi Myles; Micky Etienne; Yassine Andrade; Kecia Avendano; Gladys Degroot; Lucia Umanzor; Negro Clarke; Cristopher Blount; Moshe Crawford; REGINE DOWNEY; Bernard Camara; Mercedes Gasca; Dieter Falk; Tom Stack; Faith Holden; Eamno Brock; Richardson Linares; Macario Bishop; Jasiel Moon; Enid Gonzalez MUMPS DEVELOPER Discharge Orders/Prescriptions Prescriptions: No Action simvastatin 40 MG tablet 40 mg PO DAILY Patient Comments: Take 1 tablet by mouth daily at bedtime. calcium carbonate-vitamin D3 [Caltrate with Vitamin D3] 1 EACH tablet 1 ea PO BID naproxen 500 mg tablet,delayed release (DR/EC) 500 mg PO BID PRN (Reason: Pain) Patient Comments: take 1 tablet by mouth twice a day with meals for pain omeprazole 20 mg capsule,delayed release(DR/EC) 20 mg PO DAILY nifedipine 30 mg tablet extended release 24hr 30 mg PO DAILY methocarbamol 500 mg tablet 750 mg PO Q6H PRN PRN (Reason: pain) thiamine HCl (vitamin B1) 100 mg tablet 100 mg PO DAILY gabapentin 300 mg capsule 300 mg PO TID duloxetine 30 mg capsule,delayed release(DR/EC) 30 mg PO DAILY Spiriva Respimat 2.5 mcg/actuation mist 2 puff INHALATION DAILY Slow-Mag 71.5 mg tablet,delayed release (DR/EC) 143 mg PO DAILY vitamin B complex [Vitamins B Complex] Capsule 1 cap PO DAILY Referrals / Follow Up: Richard Hernandez PA [Primary Care Provider] - Disposition Disposition (needs filled in before D/C Order can be placed): Acute Care Hospital Charges/Coding Visit Charges Inpatient E&M: 20598 Disch Hosp >30min
--- NOTE | 2024-05-11 10:40 | NURSING ---
Report given to ASHLEIGH Costa at [facility] medical ICU
--- NOTE | 2024-05-11 14:20 | CHAPLAIN ---
Type of Pastoral Visit ___ Initial Visit _x__ Follow-up Visit ___ On-call Visit ___ General Patient Visit ___ Spiritual Assessment ___ Family Conference ___ Bereavement ___ Rapid Response ___ Code Blue ___ Other (describe below) Pastoral Care Referral From ___ Patient _x__ Family ___ Nurse ___ Physician ___ Animal Groomer ___ Driving School Instructor ___ Other (describe below) Sacrament/Intervention _x__ Active listening ___ Anointing ___ Yazidism ___ Bereavement ___ Communion ___ Yarely exploration ___ ___ Life review _x__ Prayer ___ Reconciliation ___ Sacrament of Sick _x__ Supportive presence ___ Wedding ___ Other (describe below) Pastoral Comments followed up with this patient and family as pt will be transferred out today; pt continues in sedated and unresponsive situation; spouse is at bedside and other family members are present too; offer of support, listening ear, affirmation of family presence, and prayer
[2024-05-11 14:32] LABS: Pathologist Review Reviewed
[2024-05-11 14:33] LABS: Pathologist Review Reviewed
[2024-05-11 15:18] LABS: Hemoglobin A1c 5.1 % (3.8-5.6)
== END 2024-05-11 13:31 | disposition short-term general hospital (02) | DRG 871 ==
LOC: ED 14:41 → ICU 05-08 06:34
PROVIDERS: Internal Medicine Critical Care Medicine; Admitting Provider Internal Medicine; Emergency Provider Emergency Medicine; PCP Physician Assistant; Visit Provider Student in an Organized Health Care Education/Training Program
DX: A40.3 Sepsis due to Streptococcus pneumoniae (principal); J96.01 Acute respiratory failure with hypoxia; G93.41 Metabolic encephalopathy; E43 Unspecified severe protein-calorie malnutrition; R65.20 Severe sepsis without septic shock; J13 Pneumonia due to Streptococcus pneumoniae; I63.89 Other cerebral infarction; I31.39 Other pericardial effusion (noninflammatory); J44.0 Chronic obstructive pulmonary disease with (acute) lower respiratory infection; Z68.1 Body mass index [BMI] 19.9 or less, adult; I10 Essential (primary) hypertension; F32.A Depression, unspecified; F10.11 Alcohol abuse, in remission; E78.5 Hyperlipidemia, unspecified; E87.6 Hypokalemia; K21.9 Gastro-esophageal reflux disease without esophagitis; F41.9 Anxiety disorder, unspecified; E83.42 Hypomagnesemia; F17.210 Nicotine dependence, cigarettes, uncomplicated; E86.0 Dehydration; Z92.21 Personal history of antineoplastic chemotherapy; Z85.72 Personal history of non-Hodgkin lymphomas; Z85.118 Personal history of other malignant neoplasm of bronchus and lung; Z90.2 Acquired absence of lung [part of]
CPT/HCPCS: 31500; 31720; 36415; 36600; 51702; 70450; 70553; 71045; 71275; 80048; 80053; 80061; 80076; 80307; 80329; 81001; 82140; 82550; 82803; 82962; 83036; 83605; 83615; 83735; 84100; 84443; 84478; 84484; 85025; 85379; 85384; 85610; 85730; 86850; 86900; 86901; 87040; 87070; 87077; 87086; 87088; 87149; 87186; 87205; 87631; 93005; 93306; 94002; 94003; 94640; 94762; 94799; 95819; 97802; 97803; 99252; 99285; A9575; J7030; J7050; Q9957; Q9967; A4216; C8929; G0463; G0480; J0696